=== PATIENT | female | born 1950 | race African-American/Black ===

== ENCOUNTER 2020-05-16 10:29 | Outpatient (CLI) | payer MEDICARE, SELFPAY ==
--- NOTE | ~2020-05-16 | MM_ITS ---
EXAMINATION: MM screening [facility] w brittany HISTORY: Screening TECHNIQUE: Craniocaudal and mediolateral oblique 3-D tomosynthesis images were obtained and synthetic 2-D images were generated. CAD analysis was submitted and interpreted. COMPARISON: Comparison to multiple prior studies sequentially, with oldest reviewed study dated 02/2015. BREAST PARENCHYMAL COMPOSITION: There are scattered areas of fibroglandular density. FINDINGS: There is no evidence of suspicious mass, calcification, or architectural distortion to sugg est malignancy in either breast. There has been no suspicious interval change. IMPRESSION: 1. No mammographic evidence of malignancy. 2. Recommend routine screening mammography in one year. BI-RADS Category 1: Negative Reviewed, dictated and finalized at location A.
== END 2020-05-16 10:30 | disposition home or self-care (01) ==
PROVIDERS: PCP Family Medicine; Visit Provider Family Medicine
DX: Z12.31 Encounter for screening mammogram for malignant neoplasm of breast (principal)
CPT/HCPCS: 77063; 77067

== ENCOUNTER → 2021-05-15 14:50 | Outpatient (CLI) | payer MEDICARE, SELFPAY ==
--- NOTE | ~2021-05-15 | XR_ITS ---
XR knee RT min 4V DATE: 05/15/2021 15:43 INDICATION: Right knee pain TECHNIQUE: Harding, standing AP and PA and lateral views COMPARISON: 05/31/2019 right knee FINDINGS: There is moderate osteopenia. There is moderate narrowing of the medial compartment joint space. There is slight periarticular spur ring of the patella. There is prominent enthesopathy of the patella at the quadriceps and patellar tendon insertion sites. No fracture or dislocation or joint effusion. No radiopaque intra-articular loose body or chondrocalc inosis. No periosteal reaction or bone destruction. 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 IMPRESSION: Moderate osteoarthritis at the medial compartment, mild patellofemo ral osteoarthritis Moderate osteopenia Little interval change since 05/31/2019
== END ==
PROVIDERS: PCP Family Medicine; Visit Provider Family Medicine
DX: M25.561 Pain in right knee (principal); M17.11 Unilateral primary osteoarthritis, right knee; M85.861 Other specified disorders of bone density and structure, right lower leg
CPT/HCPCS: 73564

== ENCOUNTER 2021-05-20 08:17 | Outpatient (CLI) | payer MEDICARE, SELFPAY ==
--- NOTE | ~2021-05-20 | MM_ITS ---
EXAMINATION: MM screening [facility] w brittany HISTORY: Screening TECHNIQUE: Craniocaudal and mediolateral oblique 3-D tomosynthesis images were obtained and synthetic 2-D images were generated. CAD analysis was submitted and interpreted. COMPARISON: Comparison to multiple prior studies sequentially, with oldest reviewed study dated 02/2015. BREAST PARENCHYMAL COMPOSITION: There are scattered areas of fibroglandular density. FINDINGS: No significant change to benign-appearing bilateral breast masses. There is no evidence of suspicious mass, calcification, or architectural distortion to suggest malignancy in either breast. T here has been no suspicious interval change. IMPRESSION: 1. No mammographic evidence of malignancy. 2. Recommend routine screening mammography in one year. BI-RADS Category 2: Benign finding(s). Reviewed, dictated and finalized at location A.
== END 2021-05-20 08:18 | disposition home or self-care (01) ==
PROVIDERS: PCP Family Medicine; Visit Provider Family Medicine
DX: Z12.31 Encounter for screening mammogram for malignant neoplasm of breast (principal)
CPT/HCPCS: 77063; 77067

== ENCOUNTER 2021-06-04 10:10 | Outpatient (CLI) | payer MEDICARE, SELFPAY ==
--- NOTE | 2021-06-04 11:30 | NEURO_ITS ---
Impression: # Complains of right lower extremity discomfort and throbbing sensation. # Normal nerve conduction study # Normal needle/EMG exam with no evidence of neurogenic changes. # Clinical correlation recommended; Higher involvement cannot be ruled out. Nerve Conduction Studies Anti Sensory Summary Table Stim Site NR Peak (ms) P-T Amp (?V) Site1 Site2 Delta-P (ms) Dist (cm) Román (m/s) Left Sup Fibular Anti Sensory (Ant Lat Mall) 14 cm 3.9 12.4 14 cm Ant Lat Mall 3.9 16.0 41 Right Sup Fibular Anti Sensory (Ant Lat Mall) 14 cm 3.4 16.8 14 cm Ant Lat Mall 3.4 16.0 47 Left Sural Anti Sensory (Lat Mall) Calf 3.9 6.7 Calf Lat Mall 3.9 16.0 41 Right Sural Anti Sensory (Lat Mall) Calf 3.6 5.1 Calf Lat Mall 3.6 16.0 44 Motor Summary Table Stim Site NR Onset (ms) O-P Amp (mV) Site1 Site2 Delta-0 (ms) Dist (cm) Román (m/s) Left Peroneal Motor (Vastus Med) Ankle 4.1 1.5 Popit Ankle 7.9 40.0 51 Popit 12.0 1.0 Right Peroneal Motor (Vastus Med) Ankle 4.1 1.0 Popit Ankle 7.2 36.0 50 Popit 11.3 1.0 Left Tibial Motor (Abd Smyth Brev) Ankle 4.5 1.9 Knee Ankle 8.2 42.0 51 Knee 12.7 0.6 Right Tibial Motor (Abd Smyth Brev) Ankle 4.0 0.6 Knee Ankle 8.7 41.0 47 Knee 12.7 0.7 F Wave Studies NR F-Lat (ms) L-R F-Lat (ms) Left Peroneal (Mrkrs) (EDB) 56.16 0.96 Right Peroneal (Mrkrs) (EDB) 55.20 0.96 Left Tibial (Mrkrs) (Abd Hallucis) 55.67 1.52 Right Tibial (Mrkrs) (Abd Hallucis) 54.15 1.52 EMG Side Muscle Nerve Root Ins Act Fibs Amp Dur Recrt Comment Right AntTibialis Dp Br Fibular L4-5 Nml Nml Nml Nml Nml Right Gastroc Tibial S1-2 Nml Nml Nml Nml Nml Right Fibularis Long Sup Br Fibular L5-S1 Nml Nml Nml Nml Nml Right Flex Dig Long Tibial L5-S2 Nml Nml Nml Nml Nml Right Ext Dig Brev Dp Br Fibular L5, S1 Nml Nml Nml Nml Nml Left AntTibialis Dp Br Fibular L4-5 Nml Nml Nml Nml Nml Left Gastroc Tibial S1-2 Nml Nml Nml Nml Nml Left Fibularis Long Sup Br Fibular L5-S1 Nml Nml Nml Nml Nml Left Flex Dig Long Tibial L5-S2 Nml Nml Nml Nml Nml Left Ext Dig Brev Dp Br Fibular L5, S1 Nml Nml Nml Nml Nml Right QuadratusFem QuadFemoris L4-5, S1 Nml Nml Nml Nml Nml Left QuadratusFem QuadFemoris L4-5, S1 Nml Nml Nml Nml Nml MTDD
== END 2021-06-04 10:11 | disposition home or self-care (01) ==
PROVIDERS: PCP Family Medicine; Visit Provider Family Medicine
DX: G62.9 Polyneuropathy, unspecified (principal)
CPT/HCPCS: 95886; 95910

== ENCOUNTER → 2021-12-09 12:20 | Outpatient (CLI) | payer MEDICARE, SELFPAY ==
--- NOTE | ~2021-12-09 | XR_ITS ---
EXAMINATION: XR chest 2V 12/09/2021 12:45 INDICATION: Persistent cough PROCEDURE: 2 view chest COMPARISON: 11/09/2018 FINDINGS: The lungs are clear. The cardiomediastinal silhouette is within normal limits. There are no pleural effusions. There is no pneumothorax suspected. IMPRESSION: 1: NO ACUTE CARDIOPULMONARY DISEASE. Reviewed, dictated and finalized at location A.
== END ==
PROVIDERS: PCP Family Medicine; Visit Provider Family Medicine
DX: R05.3 Chronic cough (principal)
CPT/HCPCS: 71046

== ENCOUNTER 2022-02-04 00:27 | Day surgery (SDC) | payer MEDICARE, SELFPAY ==
[2022-01-27 08:43] VITALS: BMI 28.3
[2022-02-04 09:27] VITALS: BP 132/65; PULSE 77; RESP 16; TEMP 35.8; O2SAT 99
--- NOTE | 2022-02-04 09:32 | WPDGICN ---
Assessment and Plan Assessment and plan (1) Encounter for screening colonoscopy: Code(s): Z12.11 - Encounter for screening for malignant neoplasm of colon Status: Acute Assessment and Plan: Patient presents today for screening colonoscopy. She has a distant history of colon polyps. Two thousand fifteen most recent colonoscopy was unremarkable. Patient returns for neoplasia screening colonoscopy today. GI Consult Note Consult date/time: 02/04/22 09:32 HPI: Eleonora Gandhi is a 71 year old female Presents for screening colonoscopy. Patient's current weight appetite and bowel movements are normal. She denies abdominal pain. She has had no bleeding. Family history noncontributory. Patient has a prior history of colon polyps. Most recent colonoscopy 7 years ago was unremarkable. Patient returns today for neoplasia screening. Review of Systems Review of Systems: All systems reviewed & are unremarkable except as noted in HPI and below PMFSH Past Medical History Medical History Arthritis Hypertension Surgical History Surgical History H/O: hysterectomy Family History Family History Father Family history of arthritis Family history of diabetes mellitus in first degree relative Family history of congestive heart failure Mother Family history of arthritis Social History Social History Smoking status: Never smoker Alcohol intake: current Drinks per week: 2 Alcohol use details: 2 SHOTS OF VODKA A WEEK Substance use: current Substance use type: marijuana Other substance usage details: MARIJUANA GUMMIES Living arrangements: with family Spiritual care concerns: No Meds Home Medications and Allergies Home Medications Medication Instructions Recorded Confirmed Type amlodipine 10 mg tablet 10 mg PO DAILY 10/04/19 02/04/22 History calcium carbonate 600 mg calcium 1,200 mg PO BID tablet 10/04/19 02/04/22 History (1,500 mg) tablet gabapentin 300 mg capsule 300 mg PO BID 10/04/19 02/04/22 History valacyclovir 500 mg tablet 500 mg PO DAILY 10/04/19 02/04/22 History baclofen 10 mg tablet 10 mg PO DAILY PRN tablet 10/11/20 02/04/22 History multivitamin,xu-hydg-oipslubh 1 tablet PO DAILY 10/11/20 02/04/22 History calcitriol 0.25 mcg capsule See Rx Instructions .ROUTE 10/03/21 02/04/22 History .COMPLEX cap furosemide 20 mg tablet 10 mg PO QAM PRN 10/03/21 02/04/22 History Allergies Allergy/AdvReac Type Severity Reaction Status Date / Time No Known Allergies Allergy Verified 02/04/22 09:26 Vital Signs Vital Signs - 24 hr 02/04/22 09:27 Temperature 96.5 F L Pulse Rate 77 Respiratory Rate 16 Blood Pressure 132/65 Pulse Oximetry 99 Exam Narrative: Physical exam reveals patient to be alert. Vital signs stable. HEENT exam is unremarkable. Patient is anicteric. Lungs are clear to auscultation and percussion. Heart is without murmur or extra sounds. Abdominal exam bowel sounds are present soft nontender with no organomegaly. Digital external rectal exam is normal.
[2022-02-04] MEDS: LACTATED RINGERS 1,000 ML 150 ML IV CONT (09:37)
--- NOTE | 2022-02-04 09:45 | WPDANESEPPF ---
Anes - Initial Pre Proc Eval Procedure: Operation Date: 02/04/22 10:45 Proposed Procedures p Screening Colonoscopy - Edison Dominguez MD Date/Time: 02/04/22 09:45 Surgeon: Edison Dominguez MD Pre Op Diagnosis: hx of colon polyps Patient Data Age: 71 Gender: F Height: 1.63 m Weight: 71 kg Last Vital Signs Temp 96.5 F L 02/04/22 09:27 Pulse 77 02/04/22 09:27 Resp 16 02/04/22 09:27 BP 132/65 02/04/22 09:27 Pulse Ox 99 02/04/22 09:27 Allergies Allergy/AdvReac Type Severity Reaction Status Date / Time No Known Allergies Allergy Verified 02/04/22 09:26 Home Medications Medication Instructions Recorded Confirmed Type amlodipine 10 mg tablet 10 mg PO DAILY 10/04/19 02/04/22 History calcium carbonate 600 mg calcium 1,200 mg PO BID tablet 10/04/19 02/04/22 History (1,500 mg) tablet gabapentin 300 mg capsule 300 mg PO BID 10/04/19 02/04/22 History valacyclovir 500 mg tablet 500 mg PO DAILY 10/04/19 02/04/22 History baclofen 10 mg tablet 10 mg PO DAILY PRN tablet 10/11/20 02/04/22 History multivitamin,wp-swfn-eoqlqper 1 tablet PO DAILY 10/11/20 02/04/22 History calcitriol 0.25 mcg capsule See Rx Instructions .ROUTE 10/03/21 02/04/22 History .COMPLEX cap furosemide 20 mg tablet 10 mg PO QAM PRN 10/03/21 02/04/22 History Patient hx anesthesia problems: none Family hx anesthesia problems: none Results Review: All pre-operative results and documents have been reviewed as part of the pre-operative evaluation. [facility] Past Medical History Medical History Arthritis Hypertension Surgical History Surgical History H/O: hysterectomy Family History Family History Father Family history of arthritis Family history of diabetes mellitus in first degree relative Family history of congestive heart failure Mother Family history of arthritis Social History Social History Smoking status: Never smoker Alcohol intake: current Drinks per week: 2 Alcohol use details: 2 SHOTS OF VODKA A WEEK Substance use: current Substance use type: marijuana Other substance usage details: MARIJUANA GUMMIES Living arrangements: with family Spiritual care concerns: No Anes - Eval Final PreProcedure Day of Procedure 02/04/22 09:45 Patient weight: normal Heart: regular rate and rhythm Lungs: clear to auscultation Airway: Mallampati scale class II Neurological: alert and oriented Last oral intake: >/= 8 hours ASA classification: II Emergent: no Anesthetic plan: proceed Anesthesia type and monitoring: general GIVS and standard monitoring Results Review: All pre-operative results and documents have been reviewed as part of the pre-operative evaluation. Informed Consent: The patient's anesthetic plan and its attendant risks and benefits were discussed with the patient/family/POA. Questions were solicited and answers provided to the satisfaction of the patient/family/POA.
[2022-02-04 10:08] VITALS: BP 93/45; PULSE 59; RESP 18; O2SAT 100
[2022-02-04 10:18] VITALS: BP 107/57; PULSE 64; RESP 22; O2SAT 100
[2022-02-04 10:28] VITALS: BP 121/68; PULSE 61; RESP 22; O2SAT 100
== END 2022-02-04 10:39 | disposition home or self-care (01) ==
PROVIDERS: PCP Family Medicine; Visit Provider Internal Medicine Gastroenterology
PROC: 0DJD8ZZ Inspection of Lower Intestinal Tract, Via Natural or Artificial Opening Endoscopic (ICD-10-PCS; CPT 45378; principal; 2022-02-04 10:45)
DX: Z12.11 Encounter for screening for malignant neoplasm of colon (principal); K63.5 Polyp of colon; K57.30 Diverticulosis of large intestine without perforation or abscess without bleeding; I10 Essential (primary) hypertension; F12.90 Cannabis use, unspecified, uncomplicated
CPT/HCPCS: 45385; 88305; J2704; J7120

== ENCOUNTER 2022-02-07 13:04 | Outpatient (CLI) | payer MEDICARE, SELFPAY | END 2022-02-07 13:05 | disposition home or self-care (01) | PROVIDERS: PCP Family Medicine; Visit Provider Nurse Practitioner | DX: R05.3 Chronic cough (principal) | CPT/HCPCS: 87015; 87116; 87206 ==

== ENCOUNTER 2022-02-24 10:15 | Outpatient (CLI) | payer MEDICARE, SELFPAY ==
--- NOTE | 2022-02-24 13:11 | WPDPFTINT ---
PFT Procedure Performed PFT Procedure Performed Spirometry with Pre/Post Bronchodilator Plethysmography (Lung Vol) Diffusing Cap (DLCO) Flow Vol Loop PFT Interpretation Lung volumes were measured with the body plethysmography method. Lung volumes are unremarkable. Spirometry showed normal expiratory flow rates and a normal FEV1 to FVC ratio of 70%. Following administration of a bronchodilator there was no significant change in the expiratory flow rates. Lung diffusion capacity is mildly reduced at 66% predicted. The flow volume loop is unremarkable. Impression: Spirometry and lung volumes within the normal range. Mild reduction in lung diffusion capacity.
== END 2022-02-24 10:16 | disposition home or self-care (01) ==
LOC: ANHPFT 10:18
PROVIDERS: PCP Family Medicine; Visit Provider Nurse Practitioner
DX: R05.3 Chronic cough (principal)
CPT/HCPCS: 94060; 94726; 94729

== ENCOUNTER 2022-08-26 09:49 | Outpatient (CLI) | payer MEDICARE, SELFPAY ==
--- NOTE | ~2022-08-26 | MM_ITS ---
EXAMINATION: MM screening [facility] BI w brittany HISTORY: Screening mammogram TECHNIQUE: Craniocaudal and mediolateral oblique 3-D tomosynthesis images were obtained and synthetic 2-D images were generated. CAD analysis was submitted and interpreted. COMPARISON: 05/20/2021 BREAST PARENCHYMAL COMPOSITION: The breasts are almost entirely fatty. FINDINGS: Again noted are stable intramammary lymph nodes in the outer breasts. No suspicious mass, c alcification, or architectural distortion are identified in either breast to suggest malignancy. Ther e has been no suspicious interval change. IMPRESSION: 1. No mammographic evidence of malignancy. 2. Recommend routine screening mammography in one year. BI-RADS Category 2: Benign finding(s). Reviewed, dictated and finalized at location A. 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
== END 2022-08-26 09:50 | disposition home or self-care (01) ==
LOC: ANHIMG 09:50
PROVIDERS: PCP Family Medicine; Visit Provider Family Medicine
DX: Z12.31 Encounter for screening mammogram for malignant neoplasm of breast (principal)
CPT/HCPCS: 77063; 77067

== ENCOUNTER → 2022-11-14 12:51 | Outpatient (CLI) | payer MEDICARE, SELFPAY ==
--- NOTE | ~2022-11-14 | US_ITS ---
Renal-Bladder ultrasound Clinical History: Chronic kidney disease Technique: Real-time sonographic imaging of the kidneys and urinary bladder was performed. Findings: The right kidney measures 11.0 cm in length and the left kidney measures 10.8 cm. There is no hydronephrosis or renal calculus identified. Renal cortical echogenicity is within normal limits. Left lower pole renal cyst present. Questionable additional cysts versus hypoechoic mass at the left midpole measuring 3.4 cm in diameter The urinary bladder is moderately distended at the time of this exam. No intraluminal echoes are iden tified. No abnormal wall thickening is seen. Impression: No hydronephrosis. Left lower pole simple cyst. Additional possible 3.4 cm cyst versus mass at the left midpole. Given inconclusive ultrasound appear ance, recommend pre and postcontrast CT or MR to further evaluate. Reviewed, dictated and finalized at [facility]. 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 Left lower pole simple cyst. Additional possible 3.4 cm cyst versus mass at the left midpole. Given inconclu sive ultrasound appearance, recommend pre and postcontrast CT or MR to further evaluate.
== END ==
PROVIDERS: PCP Family Medicine; Visit Provider Internal Medicine Nephrology
DX: N18.31 Chronic kidney disease, stage 3a (principal); N28.9 Disorder of kidney and ureter, unspecified
CPT/HCPCS: 76775

== ENCOUNTER 2024-01-18 14:53 | Outpatient (CLI) | payer MEDICARE, SELFPAY ==
--- NOTE | ~2024-01-18 | MM_ITS ---
EXAMINATION: MM screening [facility] BI w brittany HISTORY: Screening mammogram TECHNIQUE: Craniocaudal and mediolateral oblique 3-D tomosynthesis images were obtained and synthetic 2-D images were generated. CAD analysis was submitted and interpreted. COMPARISON: 08/26/2022, 05/20/2021 bilateral screening mammogram examinations BREAST PARENCHYMAL COMPOSITION: There are scattered areas of fibroglandular density. FINDINGS: Occasional stable bilateral low density circumscribed opacities are noted There is no evide nce of suspicious mass, calcification, or architectural distortion to suggest malignancy in either br east. There has been no suspicious interval change. IMPRESSION: 1. No mammographic evidence of malignancy. 2. Recommend routine screening mammography in one year. BI-RADS Category 2: Benign finding(s). Reviewed, dictated and finalized at location A.
== END 2024-01-18 14:54 | disposition home or self-care (01) ==
PROVIDERS: PCP Family Medicine; Visit Provider Family Medicine
DX: Z12.31 Encounter for screening mammogram for malignant neoplasm of breast (principal)
CPT/HCPCS: 77063; 77067

== ENCOUNTER 2024-05-31 14:26 | Outpatient (CLI) | payer MEDICARE, SELFPAY ==
--- NOTE | ~2024-05-31 | MR_ITS ---
EXAMINATION: MR knee RT wo con DATE: 05/31/2024 15:23 INDICATION: Right knee pain. TECHNIQUE: Magnetic resonance imaging (MRI) of the right knee was performed without intravenous contr ast. Sequences included axial PD-weighted FS FSE, coronal PD-weighted FSE and PD-weighted FS FSE, sag ittal PD-weighted FSE, and sagittal T2-weighted FS FSE. COMPARISON: Right knee radiographs 05/13/2024 FINDINGS: Medial compartment: There is a vertical tear of posterior horn of medial meniscus. There is partial-thickness cartilage l oss of femoral condyle, deep at the central and posterior articular surface. There is shallow partial -thickness cartilage loss of tibial condyle. Osteophytes are noted. Lateral compartment: There is a complex tear involving anterior horn, body, and posterior horn of lateral meniscus. There is partial-thickness cartilage loss of tibial condyle, deep at the central articular surface. There i s partial-thickness cartilage loss of femoral condyle, deep at the medial articular surface. Osteophy rivka are noted. Patellofemoral compartment: There is deep partial-thickness cartilage loss of patellar medial and lateral facets. There is full-t hickness cartilage loss of patellar medial ridge and mild subchondral edema-like marrow signal intens ity. There is full-thickness cartilage loss of lateral trochlea with mild subchondral edema-like zakia ow signal intensity. There is deep partial-thickness cartilage loss of central trochlea. Osteophytes are noted. Ligaments and tendons: The anterior and posterior cruciate ligaments are normal. Medial collateral ligament is normal. There are changes of prior sprain of fibular collateral ligament characterized by thickening and increased signal intensity proximally. There is mild patellar tendinopathy. Fluid: There is a small knee joint effusion. There is a small Olivarez's cyst. IMPRESSION: 1. Severe chondrosis of patellofemoral compartment and moderate chondrosis of medial and lateral comp artments. 2. Tears of medial and lateral menisci. 3. Small knee joint effusion. Reviewed, dictated and finalized at location A. IMPRESSION: 1. Severe chondrosis of patellofemoral compartment and moderate chondrosis of m edial and lateral compartments. 2. Tears of medial and lateral menisci. 3. Small knee joint effusion.
== END 2024-05-31 14:27 | disposition home or self-care (01) ==
LOC: MICIMG 14:27
PROVIDERS: PCP Nurse Practitioner Family; Visit Provider Nurse Practitioner Family
DX: M94.261 Chondromalacia, right knee (principal); S83.281A Other tear of lateral meniscus, current injury, right knee, initial encounter; S83.241A Other tear of medial meniscus, current injury, right knee, initial encounter; M25.40 Effusion, unspecified joint; X58.XXXA Exposure to other specified factors, initial encounter
CPT/HCPCS: 73721

== ENCOUNTER 2024-05-31 14:29 | Outpatient (CLI) | payer MEDICARE, SELFPAY ==
--- NOTE | ~2024-05-31 | XR_ITS ---
XR chest 2V Ordering provider: La Dover, SAGGER FILLER History: 73 years Female with . CHRONIC COUGH . Comparison: December 09, 2021 FINDINGS: MEDIASTINUM: The cardiac silhouette is not enlarged. LUNGS: No infiltrates, effusions or pneumothorax. OTHER: No free air under the diaphragm. IMPRESSION: No acute cardiopulmonary pathology Reviewed, dictated and finalized at location A.
== END 2024-05-31 14:30 | disposition home or self-care (01) ==
LOC: MICIMG 14:30
DX: R05.3 Chronic cough (principal)
CPT/HCPCS: 71046

== ENCOUNTER 2024-06-23 14:37 | Outpatient (CLI) | payer MEDICARE, SELFPAY ==
--- NOTE | ~2024-06-23 | XR_ITS ---
2 VIEWS THORACOLUMBAR SPINE Ordering provider: La Dover, PHOTOENGRAVING MACHINE OPERATOR/TENDER History: . Cervicalgia MID/LOWER BACK PAIN NO SURGERIES . Comparison: None. July 07, 2018 FINDINGS: VERTEBRAL BODIES: Slight loss of volume of T9 and T10. Normal height and alignment. No visible fractu re or subluxation. DISK SPACES: Narrowing of the disc space in the lower thoracic area. Narrowing of the disc L5-S1. SOFT TISSUES: Normal. IMPRESSION: No acute osseous abnormality of the thoracolumbar spine. Loss of volume in T9 and T10 which is most l ikely chronic. Reviewed, dictated and finalized at location A. IMPRESSION: No acute osseous abnormality of the thoracolumbar spine. Loss of volume in T9 a nd T10 which is most likely chronic.
--- NOTE | ~2024-06-23 | XR_ITS ---
[id number] Ordering provider: La Dover, ARMATURE BANDER History: . Cervicalgia RT SIDED CERVICAL PAIN . Comparison: None. FINDINGS: VERTEBRAL BODIES: Normal height and alignment. No visible fracture or subluxation. The dens is intact . DISK SPACES: Narrowing of the disc spaces C3-C4, C4-C5, C5-C6 and C6-C7. Multilevel uncovertebral roland nt osteoarthritic changes. PARASPINOUS SOFT TISSUES: No prevertebral soft tissue swelling. IMPRESSION: No acute osseous abnormality cervical spine. Multilevel degenerative disc disease. Reviewed, dictated and finalized at location A.
== END 2024-06-23 14:38 | disposition home or self-care (01) ==
LOC: ANHIMG 14:40
DX: M54.2 Cervicalgia (principal); M54.50 Low back pain, unspecified
CPT/HCPCS: 72040; 72080

== ENCOUNTER 2024-12-12 09:45 | Outpatient (CLI) | payer MEDICARE, SELFPAY ==
--- NOTE | ~2024-12-12 | CT_ITS ---
EXAMINATION: CT cervical spine wo con DATE: 12/12/2024 10:21 INDICATION: Cervical disc degeneration. TECHNIQUE: Computed tomography (CT) of the cervical spine was performed without intravenous contrast. Automated exposure control and iterative reconstruction technique were employed. The dose-length pro duct was 180.91 mGy-cm. COMPARISON: Cervical spine radiographs 06/23/2024 FINDINGS: There is kyphosis of cervical spine. There is 9 degrees dextrocurvature of cervical spine. Vertebral body heights are normal. There is severely decreased disc height from C3-C4 through C5-C6 a nd mildly decreased disc height at C6-C7. The following disc levels are specifically discussed: C2-C3: There is severe right and mild left uncovertebral joint osteoarthritis. There is moderate bila teral facet joint osteoarthritis. There is no neural foraminal stenosis. There is no central canal st enosis. C3-C4: There is severe right and mild left uncovertebral joint osteoarthritis. There is severe bilate ral facet joint osteoarthritis. There is mild bilateral neural foraminal stenosis. There is mild cent ral canal stenosis. C4-C5: There is moderate right and severe left uncovertebral joint osteoarthritis. There is moderate right and severe left facet joint osteoarthritis. There is mild bilateral neural foraminal stenosis. There is mild central canal stenosis. C5-C6: There is severe right and mild left uncovertebral joint osteoarthritis. There is mild right an d severe left facet joint osteoarthritis. There is mild right neural foraminal stenosis. There is mil d central canal stenosis. C6-C7: There is no uncovertebral joint osteoarthritis. There is mild bilateral facet joint osteoarthr itis. There is no neural foraminal stenosis. There is mild central canal stenosis. C7-T1: There is mild bilateral uncovertebral joint osteoarthritis. There is mild bilateral facet join t osteoarthritis. There is no neural foraminal stenosis. There is no central canal stenosis. IMPRESSION: 1. Severe cervical spondylosis. Reviewed, dictated and finalized at location A.
--- OUTSIDE RECORDS SUMMARY | 2024-12-12 11:04 | XMS_ITS | Clinical Summary ---
Author Organization [facility] Address [address] [place] [id number] Care Team Providers Care Web Press Operator Apprentice Name Role Phone Yusra Mathews MD Primary Care Provider [phone] Social History Tobacco Use Types Packs/Day Years Used Date Smoking Tobacco: Never Assessed Comments Unknown Sex and Gender Information Value Date Recorded Sex Assigned at Not on file Legal Sex Female 2:06 PM CDT Gender Identity Not on file Sexual Orientation Not on file Plan of Treatment Health Maintenance Due Date Last Done Comments Colorectal Cancer Screening Colonoscopy (10 Years) 1950 Hepatitis C 1968 DTaP, Tdap and Td Vaccines ( 1 - Tdap) 1969 Mammogram Screening 1990 Zoster Vaccines (2 of 3) 11/16/2009 09/21/2009 Annual Medicare Wellness Visit 2015 Dexa Scan (General) 2015 COVID-19 Vaccine (2023-2 5 season) 2024 Influenza Adult (#1) 2024 07/19/2018, 07/13/2017, 08/08/2015 RSV Immunization or 60+ Years (1 - 1-dose 75+ series) 2025 Pneumococcal Vaccine: 65+ Years Completed 08/18/2016, 10/12/2015 Meningococcal B Vaccine Aged Out No l onger eligible based on patient's age to complete this topic Meningococcal Vaccine Aged Out No lucy mary eligible based on patient's age to complete this topic RSV Immunizations Under 20 Months Aged Out No longer eligible b ased on patient's age to complete this topic Insurance [facility] Care Teams Web Press Operator Apprentice Relationship Specialty Start Date End Date Yusra Mathews MD [address] [place] [id number] PCP - General FAMILY PRACTICE 06/30/18
--- OUTSIDE RECORDS SUMMARY | 2024-12-12 11:04 | XMS_ITS | CONTINUITY OF CARE DOCUMENT ---
Author Name emperatriz awan Address Unknown Organization [facility] Address [address] [place] [address] Phone [phone] Care Team Providers Care Investment Manager Name Role Phone Marciano Perry MD Unavailable FLORESITA COHEN MD Unavailable [phone] FLORESITA COHEN MD Unavailable [phone] PROBLEMS Condition Status Date Provider Notes Family History of Hypertension: active ? Marciano Perry MD Family History of Hypertension: completed - Marciano Perry MD Varicose veins active Marciano Perry MD Sleep apnea, mild on home sleep 10/09 active Marciano Perry MD suggest split n ight sleep study 11/01/18 ENCOUNTERS Date Type Provider Location Encounter Diag nosis - In-person encounter Office Visit Marciano Perry MD [facility] - In-person encounter Office Visit Marciano Perry MD [facility] Family History of Hypertension:Sleep apnea, mild on home sleep 10/09 - In-person encounter Office Visit Marciano Perry MD [place] [facility] Family History of Hypertension:Varico se veinsSleep apnea, mild on home sleep 10/09 VITAL SIGNS Date Observation Value Provider Body Mass Index (Ratio) 29.69 kg/m2 Pauile Perry MD weight E&M 173 [lb_av] Jannie murphy blood pressure, cuff size regular Cy lou Martin blood pressure, diastolic 70 mm[Hg] Cy lou Martin blood pressure, systolic 128 mm[Hg] Sarika Martin oxygen saturation, oximetry 98 % Jannie Martin respiratory rate E&M 16 /min Jannie Martin pulse rate 69 /min Jannie murphy height E&M 64 [in_i] Jannie Vinesjohanna l Body Mass Index (Ratio) 30.04 kg/m2 Paulie Perry MD blood pressure, diastolic 70 mm[Hg] Da lindsay Kenyetta blood pressure, systolic 132 mm[Hg] Dac ia Kenyetta oxygen saturation, oximetry 97 % Raegan Kenyetta respiratory rate E&M 16 /min Raegan V oss pulse rate 79 /min Raegan Kenyetta weight E&M 175 [lb_av] Raegan Kenyetta height E&M 64 [in_i] Raegan Kenyetta Body Mass Index (Ratio) 29.86 kg/m2 Paulie Perry MD blood pressure, diastolic 70 mm[Hg] Jay melisaty Chetan blood pressure, systolic 126 mm[Hg] Scott urbina pulse rate 76 /min Lynette oxygen saturation, oximetry 97 % Lynette blood pressure, resting No Ayden ty respiratory rate E&M 17 /min Lynette height E&M 64 [in_i] Lynette weight E&M 174 [lb_av] Lynette [place] ALLERGIES No Known Drug Allergies HISTORY OF MEDICATION USE Medication Status Instructions Dates Provider Indications Com ments TYLENOL CAPSULE completed take one tablet by mouth as needed - Janniecharlotte Martin FUROSEMIDE 20 MG ORAL TABLET completed take one tablet by mouth once daily as needed - Jannie Martin SLOW MAGNESIUM/CALCIU M TABLET DELAYED RELEASE active take one tablet by mouthonce daily Lynette Benton DAILY MULTIVITAMIN ORAL CAPSULE active take one tablet by mouth once daily Lynette Benton VALACYCLOVIR HCL 500 MG ORAL TABLET active take one tablet by mouth once daily Lynette Benton AMLODIPINE BESYLATE 10 MG ORAL TABLET active take one tablet by mouth once daily Lynette Benton CALCITRIOL 0.5 MCG ORAL CAPSULE active take one tablet by mouthonce daily Lynette eBnton CALCIUM + D active take 2 tablet by mouth twice daily Lynette Benton IBUPROFEN 600 MG ORAL TABLET completed TK 1 T PO BID PRN - Jannie Mario #60, 30 days supply, Prescribed by ONEIL MARTINEZ, Filled 06/11/2018 GABAPENTIN 300 MG ORAL CAPSULE active TK 1 C PO BID Lynette Benton #60, 30 days supply, Prescribed by FLORESITA COHEN, Filled 08/17/2018 SOCIAL HISTORY Date Observation Value Provider social history reviewed E&M revi ewed - no changes required Marciano Perry MD social history E&M S moking History: Lamin powell has never smoked. Marciano Perry MD smoking status Never smoker Jannie cardoso social history E&M S moking History: Lamin powell has never smoked. Marciano Perry MD social history reviewed E&M revi ewed - no changes required Marciano Perry MD smoking status Never smoker Raegan Kumari social history E&M S moking History: Lamin powell has never smoked. Marciano Perry MD social history reviewed E&M revi ewed - no changes required Marciano Perry MD number of grandchildren Marciano Perry MD U lee ann Perry MD smoking status Never smoker Lynette Benton FAMILY HISTORY Family Member Condition Father Family History of Hy pertension: Father Family History of Di abetes: Mother Family History of Hy pertension: INSURANCE PROVIDERS Payer name Policy type / Coverage type [place] [employer] party ID AARP MEDICARE ADVANTAGE ([facility] COMPLETE PPO) Other [id number] ADVANCE DIRECTIVES Name Date DISCUSSED - NO DECISION MADE TREATMENT PLAN Date Name Performer Cardiology follow up :Mild on home sleep study done 09/2018. Split night sleep study 11/23/18 was negative for ISHA. Marciano Perry MD Cardiology follow up :Venous doppler revealed no evidence of DVT or venous insufficiency b/l. Marciano Perry MD Cardiology follow up :Mild on home sleep study done 10/09, recommend split night sleep study for further evaluation Marciano Perry MD Cardiology follow up :Venous doppler revealed no evidence of DVT or venous insufficiency b/l. Marciano Perry MD Cardiology:Will need repeat doppler. She does not have any of hte usual criteria to treat with EVLT. I will however give her thigh-high stockings. Marciano Perry MD Cardiology:Will need repeat dopp ler. Marciano Perry MD Cardiology:will chec k home sleep study as pt's and daughter reports episodes in night of apnea-like breathing issues, such as stopping breathing. Although she does not have a lot of sx, will check home sleep study to rule out question of apnea. Marciano Perry MD Date Name Sleep Study - split night Sleep Study Home HISTORY OF PROCEDURES Procedure Date Procedure Name Provider Procedure Notes S tatus EKG Marciano Perry MD completed
--- OUTSIDE RECORDS SUMMARY | 2024-12-12 11:04 | XMS_ITS | Patient Health Record ---
Author Organization [facility] Address [address] [place], [place] [id number] Care Team Providers Care Noc Analyst Name Role Phone Santiagomary Yusra Unavailable Unavailable Reason For Referral No Information Medications Medication SIG (Take, Route, Frequency, Duration) Notes Start Date End Date Status Medrol 4 MG as directed Orally 09/11/2023 Active Immunizations Vaccine Route Administration Date Status Comme nts Influenza, high dose seasonal Unknown 07/02/2023 Admini stered Plan Of Treatment No Information Insurance Providers Payer Name Payer Address Payer Phone Subscriber Number Group Number Insured Name Patient Relationship to Insured Coverage Start Date Coverage End Date [facility] [address] [address] [place] [address] [id number] NORA BARTH Self - patient is the insured Medical (General) History Medical History History ICD Code neuropathy Arthritis thyroid cancer
--- OUTSIDE RECORDS SUMMARY | 2024-12-12 11:04 | XMS_ITS | Data Portability ---
Author Organization [place] [facility] [employer], Main Office Address [address] [place] [id number] Care Team Providers Care Instant Powder Supervisor Name Role Phone FLORESITA MATHEWS Primary Care Provider [phone] Assessment No assessment recorded. Plan of Treatment Reminders Order Date Submit Date Provider Last Modified By Organization Details Last Modified Time Details Appointments None recorded. Lab microalbum in, urine 2023 024 [facility] ([facility]), [address] [place], [address], 4 23:00:01 CBC w/ auto diff 2022 024 ALEXANDER Not available 4 06:21:32 glycohemog lobin, total, blood 2022 024 77 Not available 4 09:12:12 BMP, serum or plasma 2022 024 ALEXANDER Not available 4 06:21:34 lipid panel, serum 2022 024 ALEXANDER Not available 4 06:21:35 vitamin D, 25-hydroxy , total, serum 2022 023 [email or web address] [id number] Not available 4 08:46:47 vitamin B12, serum 2022 024 ALEXANDER Not available 4 06:21:38 folate, serum 2022 024 ALEXANDER Not available 4 06:21:36 Referral neurologis t referral - Please call patient to schedule an appointmen t. Thank you. 2024 025 [facility] , [address], [place], [address], 5 11:10:47 Procedures None recorded. Surgeries None recorded. Imaging CT, cervical spine, w/ contrast - Please call patient to schedule. [address], [address], [place], [address], 5 16:25:14 XR, chest, 2 view 2023 024 [facility], [address], [place], [address], 4 11:42:24 MAMMO, screening, digital, bilateral - *Please call pt to schedule* [address] [facility], [address], [address], [place], [address], 4 09:11:47 DEXA - *Please call pt to schedule* [address] (Imaging), [address], [place], [address], 4 09:11:47 Medication Orders ofloxacin 0.3 % ear drops 2023 024 [facility] #[id number], [address], [place], [place], [id number], 4 10:59:04 hydroxyzin e HCl 25 mg tablet 2023 024 [facility] #[id number], [address], [place], [place], [id number], 4 10:58:56 albuterol sulfate HFA 90 mcg/actuat ion aerosol inhaler 2023 024 [id number], [address], [place], [place], [id number], 10:57:55 Patient TargetsNo targets recorded. Patient Instructions Encounter Date Encounter Id Patient Instructions Last Modified By Organization Details Last Modified Time 09/07/2023 [id number] multi-dimensiona l health assessment questionnaire* ALEXANDER Not available 09/07/2023 14:48:01 Personalized Hea lt Plan and Screening Recommendations Advance Directives - Do you have one? Advance Directives - Do we have your advance directive on file in your health record? Primary Prevention/Interven tion (prevents or decreases the chance of common diseases from occurring) Smoking Risk: Alcohol Misuse Screening: Weight: Physical activity: Nutrition: Fall Risk (screened today): Vaccines Pneumococcal: Ordered Recommended today Recommended today, but you have declined No further needed Influenza: Chronic Disease Risks Stroke: I have no recommendations Act josé luis diagnosis, Continue current treatment plan Heart Attack: I have no recommendations Act josé luis diagnosis, Continue current treatment plan Clogging of the Arteries: I have no recommendations Act josé luis diagnosis, Continue current treatment plan Diabetes: Active diagnosis, Continue current treatment plan Secondary Prevention/Interven tion (detects treatable diseases before they may cause symptoms, disability, or ) Breast Cancer Screening with mammogram: Your next mammogram: Ordered Cervical/Uterine/Ov naldo Cancer Screening: No screening necessary Osteoporosis Screening: Your next DEXA in: Ordered Date Screening Last Performed: Colon Cancer Screening: Colonoscopy Date Screening Last Performed: Eye Disease Screening: Dementia Risk: Depression Screening: Active diagnosis, Continue current treatment plan [email or web address] Not available 09/17/2023 17:59:23 Reason for Referral Neurologist Referral for Latoya ropathy Please call patient to schedule an appointment. Thank you. Referring Physician: La Dover, Family Medicine, Encounter Date: 10/20/2024 Results Created Date Observation Date Name Description Value Unit Range Abnormal Flag Note LastModifiedBy Organization Detail LastModifiedTime 10/09/1910/09/2022 AMBIG ABBRE V HFP7 DEFAU LT ambig abbrev hfp7 default commen t A hand- writt en panel /prof arredondo was recei senait from your offic e. In accor dance with the [facility] Fareed samuels Test Code Polic y dated March 2003, we have compl eted your order by using the close st curre ntly or forme rly recog nized AMA panel . We have assallen gomezd Hepat ic Funct ion Panel (7), Test Code #32[address]. If this is not the testi ng you wishe d to recei ve on this speci men, pleas e conta ct the [facility] Clien t Inqui ry/Te chnic al Servi tiarra Depar tment to kingsley fy the test order . We appre ciate your busin ess. Not Available [facility] ([facility]) [address] [facility], [place], [address], 10/10/2022 08:19:56 10/09/19 23 10/10/2022 VITAM IN B12 vitamin B12 557 pg/mL 232-12 45 Not Available [facility] ([facility]) [address] [place], [address], 10/10/2022 08:19:55 10/09/19 23 10/10/2022 VITAM IN D, 25-HY DROXY vitamin D, 25-hydroxy 45.3 NG/mL 30.0-1 00.0 Vitam in D defic iency has been defin ed by the Insti tute of Medic ine and an Endoc rine Socie ty pract ice guide line as a level of serum 25-OH vitam in D less than 20 ng/mL (1,2) . The Endoc rine Socie ty went on to furth er defin e vitam in D insuf ficie ncy as a level betwe en 21 and 29 ng/mL (2). 1. IOM (Inst itute of Medic ine). 2010. Dieta ry refer ence reg es for calci um and D. Jordyn benitez [place]: The Natio nal [facility] Press . 2. Parker COLE, Dillan philippe [place], Shanae off-F vidya i BARKER, et al. Evalu ation , treat ment, and preve ntion of vitam in D defic iency : an Endoc rine Socie ty clini dick pract ice guide line. JCEM. 2010; 96(7) :1911 -30. Not Available [facility] ([facility]) [address] [facility] [place], [address], 10/10/2022 08:19:54 10/09/19 23 10/10/2022 HEPAT IC FUNCT ION PANEL (7) protein, total 7.6 g/dL 6.0-8. 5 Not Available [facility] ([facility]) [address] [facility] [place], [address], 10/10/2022 08:19:53 10/09/19 23 10/10/2022 HEPAT IC FUNCT ION PANEL (7) albumin 4.3 g/dL 3.7-4. 7 Not Available [facility] ([facility]) [address] [facility] [place], [address], 10/10/2022 08:19:53 10/09/19 23 10/10/2022 HEPAT IC FUNCT ION PANEL (7) bilirubin, total 0.4 mg/dL 0.0-1. 2 Not Available [facility] ([facility]) [address] [facility] [place], [address], 10/10/2022 08:19:53 10/09/19 23 10/10/2022 HEPAT IC FUNCT ION PANEL (7) bilirubin, direct 0.13 mg/dL 0.00-0 .40 Not Available [facility] ([facility]) [address] [facility] [place], [address], 10/10/2022 08:19:53 10/09/19 23 10/10/2022 HEPAT IC FUNCT ION PANEL (7) alkaline phosphatase 64 IU/L 44-121 Not Available [facility]) [address] [place], [address], 10/10/2022 08:19:53 10/09/19 23 10/10/2022 HEPAT IC FUNCT ION PANEL (7) AST (SGOT) 16 IU/L 0-40 Not Available [facility] ([facility]) [address] [facility] [place], [address], 10/10/2022 08:19:53 10/09/19 23 10/10/2022 HEPAT IC FUNCT ION PANEL (7) ALT (SGPT) 10 IU/L 0-32 Not Available [facility] ([facility]) [address] [place], [address], 10/10/2022 08:19:53 10/09/19 23 10/10/2022 LIPID PANEL cholesterol, total 206 mg/dL 100-19 9 above high normal Not Available [facility] ([facility]) [address] [place], [address], 10/10/2022 08:19:53 10/09/19 23 10/10/2022 LIPID PANEL triglyceride s 90 mg/dL 0-149 Not Available [facility] ([facility]) [address] [place], [address], 10/10/2022 08:19:53 10/09/19 23 10/10/2022 LIPID PANEL HDL cholesterol 68 mg/dL >39 Not Available [facility] ([facility]) [address] [place], [address], 10/10/2022 08:19:53 10/09/19 23 10/10/2022 LIPID PANEL VLDL cholesterol dick 16 mg/dL 5-40 Not Available [facility] ([facility]) [address] [place], [address], 10/10/2022 08:19:53 10/09/19 23 10/10/2022 LIPID PANEL LDL chol calc ([facility]) 122 mg/dL 0-99 above high normal Not Available [facility] ([facility]) [address] [facility] [place], [address], 10/10/2022 08:19:53 10/09/19 23 10/10/2022 LIPID PANEL comment: rn training Not Available [facility] ([facility]) [address] [facility] [place], [address], 10/10/2022 08:19:53 10/09/19 23 10/10/2022 BASIC METAB OLIC PANEL (8) glucose 81 mg/dL 70-99 Not Available [facility] ([facility]) [address] [facility] [place], [address], 10/10/2022 08:19:53 10/09/19 23 10/10/2022 BASIC METAB OLIC PANEL (8) BUN 13 mg/dL 8-27 Not Available [facility] ([facility]) [address] [facility] [place], [address], 10/10/2022 08:19:53 10/09/19 23 10/10/2022 BASIC METAB OLIC PANEL (8) creatinine 1.03 mg/dL 0.57-1 .00 above high normal Not Available [facility] ([facility]) [address] [facility] [place], [address], 10/10/2022 08:19:53 10/09/19 23 10/10/2022 BASIC METAB OLIC PANEL (8) eGFR 58 mL/mi n/1.7 3 >59 below low normal Not Available [facility] ([facility]) [address] [facility] [place], [address], 10/10/2022 08:19:53 10/09/19 23 10/10/2022 BASIC METAB OLIC PANEL (8) BUN/creatini ne ratio 13 12-28 Not Available [facility] ([facility]) [address] [place], [address], 10/10/2022 08:19:53 10/09/19 23 10/10/2022 BASIC METAB OLIC PANEL (8) sodium 144 mmol/ L 134-14 4 Not Available [facility] ([facility]) [address] [place], [address], 10/10/2022 08:19:53 10/09/19 23 10/10/2022 BASIC METAB OLIC PANEL (8) potassium 4.1 mmol/ L 3.5-5. 2 Not Available [facility] ([facility]) [address] [place], [address], 10/10/2022 08:19:53 10/09/19 23 10/10/2022 BASIC METAB OLIC PANEL (8) chloride 103 mmol/ L 96-106 Not Available [facility] ([facility]) [address] [place], [address], 10/10/2022 08:19:53 10/09/19 23 10/10/2022 BASIC METAB OLIC PANEL (8) carbon dioxide, total 28 mmol/ L 20-29 Not Available [facility] ([facility]) [address] [place], [address], 10/10/2022 08:19:53 10/09/19 23 10/10/2022 BASIC METAB OLIC PANEL (8) calcium 8.5 mg/dL 8.7-10 .3 below low normal Not Available [facility] ([facility]) [address] [place], [address], 10/10/2022 08:19:53 10/09/19 23 10/10/2022 CBC/D IFF AMBIG UOUS DEFAU LT WBC 4.7 x10e3 /uL 3.4-10 .8 Not Available [facility] ([facility]) [address] [place], [address], 10/10/2022 08:19:52 10/09/19 23 10/10/2022 CBC/D IFF AMBIG UOUS DEFAU LT RBC 4.42 x10e6 /uL 3.77-5 .28 Not Available [facility] ([facility]) [address] [facility], [place], [address], 10/10/2022 08:19:52 10/09/19 23 10/10/2022 CBC/D IFF AMBIG UOUS DEFAU LT hemoglobin 12.6 g/dL 11.1-1 5.9 Not Available [facility] ([facility]) [address] [facility], [place], [address], 10/10/2022 08:19:52 10/09/19 23 10/10/2022 CBC/D IFF AMBIG UOUS DEFAU LT hematocrit 39.3 % 34.0-4 6.6 Not Available [facility] ([facility]) [address] [facility], [place], [address], 10/10/2022 08:19:52 10/09/19 23 10/10/2022 CBC/D IFF AMBIG UOUS DEFAU LT MCV 89 fL 79-97 Not Available [facility] ([facility]) [address] [place], [address], 10/10/2022 08:19:52 10/09/19 23 10/10/2022 CBC/D IFF AMBIG UOUS DEFAU LT MCH 28.5 pg 26.6-3 3.0 Not Available [facility] ([facility]) [address] [place], [address], 10/10/2022 08:19:52 10/09/19 23 10/10/2022 CBC/D IFF AMBIG UOUS DEFAU LT MCHC 32.1 g/dL 31.5-3 5.7 Not Available [facility] ([facility]) [address] [place], [address], 10/10/2022 08:19:52 10/09/19 23 10/10/2022 CBC/D IFF AMBIG UOUS DEFAU LT RDW 13.4 % 11.7-1 5.4 Not Available [facility] ([facility]) [address] [facility], [place], [address], 10/10/2022 08:19:52 10/09/19 23 10/10/2022 CBC/D IFF AMBIG UOUS DEFAU LT platelets 221 x10e3 /uL 150-45 0 Not Available [facility] ([facility]) [address] [facility], [place], [address], 10/10/2022 08:19:52 10/09/19 23 10/10/2022 CBC/D IFF AMBIG UOUS DEFAU LT neutrophils 53 % not estab. Not Available [facility] ([facility]) [address] [facility], [place], [address], 10/10/2022 08:19:52 10/09/19 23 10/10/2022 CBC/D IFF AMBIG UOUS DEFAU LT lymphs 34 % not estab. Not Available [facility] ([facility]) [address] [facility], [place], [address], 10/10/2022 08:19:52 10/09/19 23 10/10/2022 CBC/D IFF AMBIG UOUS DEFAU LT monocytes 7 % not estab. Not Available [facility] ([facility]) [address] [facility], [place], [address], 10/10/2022 08:19:52 10/09/19 23 10/10/2022 CBC/D IFF AMBIG UOUS DEFAU LT eos 5 % not estab. Not Available [facility] ([facility]) [address] [facility], [place], [address], 10/10/2022 08:19:52 10/09/19 23 10/10/2022 CBC/D IFF AMBIG UOUS DEFAU LT basos 1 % not estab. Not Available [facility] ([facility]) [address] [facility], [place], [address], 10/10/2022 08:19:52 10/09/19 23 10/10/2022 CBC/D IFF AMBIG UOUS DEFAU LT immature cells rn training Not Available [facility] ([facility]) [address] [facility], [place], [address], 10/10/2022 08:19:52 10/09/19 23 10/10/2022 CBC/D IFF AMBIG UOUS DEFAU LT neutrophils (absolute) 2.5 x10e3 /uL 1.4-7. 0 Not Available [facility] ([facility]) [address] [place], [address], 10/10/2022 08:19:52 10/09/19 23 10/10/2022 CBC/D IFF AMBIG UOUS DEFAU LT lymphs (absolute) 1.6 x10e3 /uL 0.7-3. 1 Not Available [facility] ([facility]) [address] [place], [address], 10/10/2022 08:19:52 10/09/19 23 10/10/2022 CBC/D IFF AMBIG UOUS DEFAU LT monocytes(ab solute) 0.3 x10e3 /uL 0.1-0. 9 Not Available [facility] ([facility]) [address] [place], [address], 10/10/2022 08:19:52 10/09/19 23 10/10/2022 CBC/D IFF AMBIG UOUS DEFAU LT eos (absolute) 0.2 x10e3 /uL 0.0-0. 4 Not Available [facility] ([facility]) [address] [place], [address], 10/10/2022 08:19:52 10/09/19 23 10/10/2022 CBC/D IFF AMBIG UOUS DEFAU LT baso (absolute) 0.0 x10e3 /uL 0.0-0. 2 Not Available [facility] ([facility]) [address] [facility], [place], [address], 10/10/2022 08:19:52 10/09/19 23 10/10/2022 CBC/D IFF AMBIG UOUS DEFAU LT immature granulocytes 0 % not estab. Not Available [facility] ([facility]) [address] [facility], [place], [address], 10/10/2022 08:19:52 10/09/19 23 10/10/2022 CBC/D IFF AMBIG UOUS DEFAU LT immature grans (abs) 0.0 x10e3 /uL 0.0-0. 1 Not Available [facility] ([facility]) [address] [facility], [place], [address], 10/10/2022 08:19:52 10/09/19 23 10/10/2022 CBC/D IFF AMBIG UOUS DEFAU LT NRBC rn training Not Available [facility] ([facility]) [address] [facility], [place], [address], 10/10/2022 08:19:52 10/09/19 23 10/10/2022 CBC/D IFF AMBIG UOUS DEFAU LT hematology comments: rn training A hand- writt en panel /prof ile was recei senait from your offic e. In accor dance with the [facility] Fareed samuels Test Code Polic y dated March 2003, we have assig natan CBC with Diffhuma santos al/Pl murphy t, Test Code #[address]. If this is not the testi ng you wishe d to recei ve on this speci men, pleas e conta ct the [facility] Demetria t Inqui ry/ Techn ical Servi tiarra Depar tment to kingsley fy the test order . We appre ciate your busin ess. Not Available [facility] ([facility]) [address] [facility], [place], [address], 10/10/2022 08:19:52 10/30/19 24 10/30/2023 CBC WITH DIFFE RENTI AL/PL ATELE T WBC 4.7 x10e3 /uL 3.4-10 .8 Not Available [facility] ([facility]) [address] [place], [address], 10/31/2023 06:21:32 10/30/19 24 10/30/2023 CBC WITH DIFFE RENTI AL/PL ATELE T RBC 4.36 x10e6 /uL 3.77-5 .28 Not Available [facility] ([facility]) [address] [place], [address], 10/31/2023 06:21:32 10/30/19 24 10/30/2023 CBC WITH DIFFE RENTI AL/PL ATELE T hemoglobin 12.9 g/dL 11.1-1 5.9 Not Available [facility] ([facility]) [address] [place], [address], 10/31/2023 06:21:32 10/30/19 24 10/30/2023 CBC WITH DIFFE RENTI AL/PL ATELE T hematocrit 39.1 % 34.0-4 6.6 Not Available [facility] ([facility]) [address] [place], [address], 10/31/2023 06:21:32 10/30/19 24 10/30/2023 CBC WITH DIFFE RENTI AL/PL ATELE T MCV 90 fL 79-97 Not Available [facility] ([facility]) [address] [place], [address], 10/31/2023 06:21:32 10/30/19 24 10/30/2023 CBC WITH DIFFE RENTI AL/PL ATELE T MCH 29.6 pg 26.6-3 3.0 Not Available [facility] ([facility]) [address] [place], [address], 10/31/2023 06:21:32 10/30/19 24 10/30/2023 CBC WITH DIFFE RENTI AL/PL ATELE T MCHC 33.0 g/dL 31.5-3 5.7 Not Available [facility] ([facility]) [address] [facility], [place], [address], 10/31/2023 06:21:32 10/30/19 24 10/30/2023 CBC WITH DIFFE RENTI AL/PL ATELE T RDW 13.1 % 11.7-1 5.4 Not Available [facility] ([facility]) [address] [facility], [place], [address], 10/31/2023 06:21:32 10/30/19 24 10/30/2023 CBC WITH DIFFE RENTI AL/PL ATELE T platelets 186 x10e3 /uL 150-45 0 Not Available [facility] ([facility]) [address] [facility], [place], [address], 10/31/2023 06:21:32 10/30/19 24 10/30/2023 CBC WITH DIFFE RENTI AL/PL ATELE T neutrophils 55 % not estab. Not Available [facility] ([facility]) [address] [facility], [place], [address], 10/31/2023 06:21:32 10/30/19 24 10/30/2023 CBC WITH DIFFE RENTI AL/PL ATELE T lymphs 32 % not estab. Not Available [facility] ([facility]) [address] [facility], [place], [address], 10/31/2023 06:21:32 10/30/19 24 10/30/2023 CBC WITH DIFFE RENTI AL/PL ATELE T monocytes 7 % not estab. Not Available [facility] ([facility]) [address] [facility], [place], [address], 10/31/2023 06:21:32 10/30/19 24 10/30/2023 CBC WITH DIFFE RENTI AL/PL ATELE T eos 5 % not estab. Not Available [facility] ([facility]) [address] [place], [address], 10/31/2023 06:21:32 10/30/19 24 10/30/2023 CBC WITH DIFFE RENTI AL/PL ATELE T basos 1 % not estab. Not Available [facility] ([facility]) [address] [facility], [place], [address], 10/31/2023 06:21:32 10/30/19 24 10/30/2023 CBC WITH DIFFE RENTI AL/PL ATELE T immature cells BARREL PAINTER Not Available [facility] ([facility]) [address] [place], [address], 10/31/2023 06:21:32 10/30/19 24 10/30/2023 CBC WITH DIFFE RENTI AL/PL ATELE T neutrophils (absolute) 2.7 x10e3 /uL 1.4-7. 0 Not Available [facility] ([facility]) [address] [place], [address], 10/31/2023 06:21:32 10/30/19 24 10/30/2023 CBC WITH DIFFE RENTI AL/PL ATELE T lymphs (absolute) 1.5 x10e3 /uL 0.7-3. 1 Not Available [facility] ([facility]) [address] [place], [address], 10/31/2023 06:21:32 10/30/19 24 10/30/2023 CBC WITH DIFFE RENTI AL/PL ATELE T monocytes(ab solute) 0.3 x10e3 /uL 0.1-0. 9 Not Available [facility] ([facility]) [address] [place], [address], 10/31/2023 06:21:32 10/30/19 24 10/30/2023 CBC WITH DIFFE RENTI AL/PL ATELE T eos (absolute) 0.2 x10e3 /uL 0.0-0. 4 Not Available [facility] ([facility]) [address] [facility], [place], [address], 10/31/2023 06:21:32 10/30/19 24 10/30/2023 CBC WITH DIFFE RENTI AL/PL ATELE T baso (absolute) 0.0 x10e3 /uL 0.0-0. 2 Not Available [facility] ([facility]) [address] [facility], [place], [address], 10/31/2023 06:21:32 10/30/19 24 10/30/2023 CBC WITH DIFFE RENTI AL/PL ATELE T immature granulocytes 0 % not estab. Not Available [facility] ([facility]) [address] [facility], [place], [address], 10/31/2023 06:21:32 10/30/19 24 10/30/2023 CBC WITH DIFFE RENTI AL/PL ATELE T immature grans (abs) 0.0 x10e3 /uL 0.0-0. 1 Not Available [facility] ([facility]) [address] [place], [address], 10/31/2023 06:21:32 10/30/19 24 10/30/2023 CBC WITH DIFFE RENTI AL/PL ATELE T NRBC BARREL PAINTER Not Available [facility] ([facility]) [address] [place], [address], 10/31/2023 06:21:32 10/30/19 24 10/30/2023 CBC WITH DIFFE RENTI AL/PL ATELE T hematology comments: BARREL PAINTER Not Available [facility] ([facility]) [address] [place], [address], 10/31/2023 06:21:32 10/30/19 24 10/31/2023 BASIC METAB OLIC PANEL (8) glucose 86 mg/dL 70-99 Not Available [facility] ([facility]) [address] [place], [address], 10/31/2023 06:21:34 10/30/19 24 10/31/2023 BASIC METAB OLIC PANEL (8) BUN 17 mg/dL 8-27 Not Available [facility] ([facility]) [address] [facility] [place], [address], 10/31/2023 06:21:34 10/30/19 24 10/31/2023 BASIC METAB OLIC PANEL (8) creatinine 1.02 mg/dL 0.57-1 .00 above high normal Not Available [facility] ([facility]) [address] [facility] [place], [address], 10/31/2023 06:21:34 10/30/19 24 10/31/2023 BASIC METAB OLIC PANEL (8) eGFR 58 mL/mi n/1.7 3 >59 below low normal Not Available [facility] ([facility]) [address] [facility] [place], [address], 10/31/2023 06:21:34 10/30/19 24 10/31/2023 BASIC METAB OLIC PANEL (8) BUN/creatini ne ratio 17 12-28 Not Available [facility] ([facility]) [address] [facility] [place], [address], 10/31/2023 06:21:34 10/30/19 24 10/31/2023 BASIC METAB OLIC PANEL (8) sodium 144 mmol/ L 134-14 4 Not Available [facility] ([facility]) [address] [facility] [place], [address], 10/31/2023 06:21:34 10/30/19 24 10/31/2023 BASIC METAB OLIC PANEL (8) potassium 4.1 mmol/ L 3.5-5. 2 Not Available [facility] ([facility]) [address] [facility] [place], [address], 10/31/2023 06:21:34 10/30/19 24 10/31/2023 BASIC METAB OLIC PANEL (8) chloride 104 mmol/ L 96-106 Not Available [facility] ([facility]) [address] [facility] [place], [address], 10/31/2023 06:21:34 10/30/19 24 10/31/2023 BASIC METAB OLIC PANEL (8) carbon dioxide, total 25 mmol/ L 20-29 Not Available [facility] ([facility]) [address] [facility] [place], [address], 10/31/2023 06:21:34 10/30/19 24 10/31/2023 BASIC METAB OLIC PANEL (8) calcium 8.5 mg/dL 8.7-10 .3 below low normal Not Available [facility] ([facility]) [address] [place], [address], 10/31/2023 06:21:34 10/30/19 24 10/31/2023 LIPID PANEL cholesterol, total 194 mg/dL 100-19 9 Not Available [facility] ([facility]) [address] [place], [address], 10/31/2023 06:21:35 10/30/19 24 10/31/2023 LIPID PANEL triglyceride s 71 mg/dL 0-149 Not Available [facility] ([facility]) [address] [place], [address], 10/31/2023 06:21:35 10/30/19 24 10/31/2023 LIPID PANEL HDL cholesterol 66 mg/dL >39 Not Available [facility] ([facility]) [address] [place], [address], 10/31/2023 06:21:35 10/30/19 24 10/31/2023 LIPID PANEL VLDL cholesterol dick 13 mg/dL 5-40 Not Available [facility] ([facility]) [address] [place], [address], 10/31/2023 06:21:35 10/30/19 24 10/31/2023 LIPID PANEL LDL chol calc ([facility]) 115 mg/dL 0-99 above high normal Not Available [facility] ([facility]) [address] [facility], [place], [address], 10/31/2023 06:21:35 10/30/19 24 10/31/2023 LIPID PANEL comment: BARREL PAINTER Not Available [facility] ([facility]) [address] [facility], [place], [address], 10/31/2023 06:21:35 10/30/1910/31/2023 HEMOG LOBIN A1C hemoglobin A1C 5.6 % 4.8-5. 6 Predi abete s: 5.7 - 6.4 Diabe rivka: >6.4 Glyce beni contr ol for adult s with diabe rivka: <7.0 Not Available [facility] ([facility]) [address] [facility], [place], [address], 10/31/2023 06:21:36 10/30/1910/31/2023 FOLAT E (FOLI C ACID) , SERUM folate (folic acid), serum >20.0 NG/mL >3.0 A serum folat e jhonatan ntrat ion of less than 3.1 ng/mL is consi dered to repre sent clini dick defic iency . Not Available [facility] ([facility]) [address] [facility], [place], [address], 10/31/2023 06:21:36 10/30/19 24 10/31/2023 VITAM IN D, 25-HY DROXY vitamin D, 25-hydroxy 49.7 NG/mL 30.0-1 00.0 Vitam in D defic iency has been defin ed by the Insti tute of Medic ine and an Endoc rine Socie ty pract ice guide line as a level of serum 25-OH vitam in D less than 20 ng/mL (1,2) . The Endoc rine Socie ty went on to furth er defin e vitam in D insuf ficie ncy as a level betwe en 21 and 29 ng/mL (2). 1. IOM (Inst itute of Medic ine). 2010. Dieta ry refer ence intak es for calci um and D. Jordyn benitez [place]: The [facility] . 2. Parker villareal MF, Dillan philippe [place], Shanae off-F errar i BARKER, et al. Evalu ation , treat ment, and preve ntion of vitam in D defic iency : an Endoc rine Socie ty clini dick pract ice guide line. JCEM. 2010; 96(7) :1911 -30. Not Available [facility] ([facility]) [address] [facility], [place], [address], 10/31/2023 06:21:37 10/30/19 24 10/31/2023 VITAM IN B12 vitamin B12 541 pg/mL 232-12 45 Not Available [facility] ([facility]) [address] [facility], [place], [address], 10/31/2023 06:21:38 08/26/20 22 08/26/2022 MAMMO , scree kaia, bilat eral No observ ation record ed. [id number], [place], [address], 11/19/2022 05:01:48 01/18/20 24 01/18/2024 MAMMO , scree kaia, digit al, bilat eral No observ ation record ed. [email or web address] [address], [place], [address], 02/06/2024 11:51:16 06/01/20 24 05/31/2024 XR, chest , 2 view No observ ation record ed. Imaging [address] [address], [place], [address], 06/01/2024 12:10:27 06/23/20 24 06/23/2024 XR, cervi dick spine No observ ation record ed. [facility] [address] [facility] [facility] [address], [place], [address], 06/24/2024 09:04:42 Result Notes None recorded. Problems Name Problem SNOMED Code Status Onset Date Resolution Date Notes Provider Name and Address Organization Details Recorded Time Chronic kidney disease stage 3 490401471 Active 2022 Floresita Mathews MD [address], [place], [address] , [employer] 3 13:45:21 Cobalamin deficiency 699710310 Active 2022 Floresita Mathews MD [address], [address], [place], [address] , [employer] 3 14:27:24 Vitamin D deficiency 06281929 Active 2022 Floresita Mathews MD [address], [address], [place], [address] , [employer] 3 14:29:06 Prediabetes 883398706 Active 2022 Floresita Mathews MD [address], [address], [place], [address] , [employer] 3 14:31:29 Primary insomnia 6499833 Active 2023 AMADO Patterson [address], [place], [address] , [employer] 4 12:00:50 Otitis externa 4020249 Active 2023 AMADO Patterson [address], [place], [address] , [facility] [employer] 4 12:06:53 Neck pain 88941438 Active 2023 AMADO Patterson [address], [place], [address] , [facility] 4 12:08:43 Thoracic back pain 845221421 Active 2023 AMADO Patterson [address], [place], [address] , [facility] 4 12:08:51 Low back pain 458406553 Active 2023 AMADO Patterson [address], [place], [address] , [facility] 4 12:09:31 Degeneration of cervical intervertebra l disc 16885481 Active 2023 AMADO Patterson [address], [place], [address] , [facility] 4 10:19:02 Neuropathy 788212002 Active 2024 AMADO Patterson [address], [place], [address] , [facility] 5 14:52:46 Disorder of thyroid gland 59241648 Active Not Available [facility] 3 04:49:00 Cataract 217444483 Active Not Available [facility] 3 04:49:00 Dyspnea 662440695 Active 2021 Not Available [facility] 3 04:49:00 Edema 329956069 Active Not Available [facility] 3 04:49:00 Eruption 767127852 Active Not Available [facility] 3 04:49:00 Genital herpes simplex 72055329 Active Not Available [facility] 3 04:49:00 Hypoparathyro idism 17816706 Active Not Available [facility] 3 04:49:00 Hypertensive disorder 53226523 Active Not Available [facility] 3 04:49:00 Osteoarthriti s 461039848 Active knee Not Available [facility] 3 04:49:00 Clinical finding Active Not Available [facility] 3 04:49:00 Obesity 784999284 Active Not Available [facility] 3 04:49:00 Verruca plantaris 20151326 Active Not Available [facility] 3 04:49:00 Chronic cough 04186096 Active 2021 Not Available [facility] 3 04:49:01 Marijuana user 087070488 Active 2021 Not Available [facility] 3 04:49:01 Posterior rhinorrhea 26929978 Active 2021 Not Available [facility] 3 04:49:01 Obstructive sleep apnea syndrome 87387033 Active 2018 Not Available [facility] 3 04:49:01 Pain in limb 68361029 Active Not Available [facility] 3 04:49:01 Notes:Some problems listed i n Document: #[id number] could not be added to this patient's chart. Please review this document and add these problems to the patient's chart manually as needed. Problem Notes None recorded. Procedures Surgical History Date Name Laterality Status Provider Name and Address Organization Details Recorded Time 01/20/20 24 Most Recent Mammogram completed Lisseth Chen RN [facility] [employer] [facility] 03/07/2024 11:33:45 09/07/20 23 Medicare Wellness CPT Code, subsequent completed Ramez Chandler RN [facility] [employer] [facility] 09/07/2023 13:58:23 09/21/19 05 shoulder manipulation completed Lisseth Chen RN [facility] [employer] [facility] 03/07/2024 11:25:57 09/21/18 98 Hysterectomy completed Lisseth Chen RN [facility] [employer] [facility] 03/07/2024 11:25:28 01/19/19 90 delivery completed Lisseth Chen RN [facility] [employer] [facility] 03/07/2024 11:25:16 Imaging Results Imaging Date Name Status [facility] by [facility] Details LastModified Time 08/26/2022 MAMMO, screening, bilateral completed [id number] [address] [place] [address] [address] [facility], [place], [address], 11/19/2022 05:01:48 01/18/2024 MAMMO, screening, digital, bilateral [email or web address] [address], [place], [address], 02/06/2024 11:51:16 05/31/2024 XR, chest, 2 view completed [address], [place], [address], 06/01/2024 12:10:27 06/23/2024 XR, cervical spine completed [address] [facility] [address], [place], [address], 06/24/2024 09:04:42 Procedure Notes None recorded. Medical Equipment None Reported. Allergies Allergen ID Allergen Name Allergen Category Reaction Reaction Severity Criticality Documentation Date Start Date Code Code System Note Provider Name and Address Organization Details Recorded Time 58601 lactose food,medi cation Not available Not available Not available 05/31/2024 6211 RxNorm Lisseth Chen RN null, [place] - [facility] [employer] 4 10:57:44 7508 lactase medicatio n Not available Not available Not available 11/19/2022 16329 RxNorm Not Available [facility] 3 05:01:16 Medications Name Sig Start Date Stop Date Status Note LastModified by Organization Details LastModified Time Prescripti on - Renewal active Not Available Not Available Not Available cetirizine 10 mg tablet TAKE 1 TABLET BY MOUTH ONCE DAILY NEEDED FOR 20 DAYS 10/20 completed Not Available Not Available Not Available benzonatat e 200 mg capsule TAKE 1 CAPSULE BY MOUTH 2 TO 3 TIMES DAILY NEEDED 10/20 completed Not Available Not Available Not Available meloxicam 15 mg tablet Take 1 tablet every day by oral route. active Not Available Not Available No t Available famotidine 40 mg tablet Take 1 tablet every day by oral route in the evening for 30 days. active Not Available Not Available No t Available gabapentin 400 mg capsule Take 1 capsule twice a day by oral route. active Not Available Not Available No t Available cyanocobal deluna (vit B-12) 1,000 mcg tablet Take 1000 tablets every day by oral route. 05/03/ 2022 09/10 /2024 completed Not Available Not Available Not Available acetaminop hen 300 mg-codeine 30 mg tablet 12/03 completed Not Available Not Available Not Available acyclovir 400 mg tablet Take 1 tablet twice a day by oral route. active Not Available Not Available No t Available valacyclov ir 500 mg tablet Take 1 tablet every day by oral route. 2023 active Not Available Not Available Not Avai lable tramadol 50 mg tablet TAKE 1 TABLET BY MOUTH EVERY 6 HOURS NEEDED FOR THREE DAYS 03/07 completed Not Available Not Available Not Available ofloxacin 0.3 % ear drops INSTILL 10 DROPS TO AFFECTED EAR EVERY DAY FOR 3 DAYS DIRECTED 05/31 completed Not Available Not Available Not Available prednisolo ne acetate 1 % eye drops,susp ension INSTILL 1 DROP INTO AFFECTED EYE TID - BEGIN AFTER SURGERY active Not Available Not Available No t Available baclofen 10 mg tablet 2024 active Not Available Not Available Not Avai lable amlodipine 10 mg tablet TAKE 1 TABLET BY MOUTH DAILY 03/07 completed /2 tab daily MK 2 Not Available Not Available Not Available cephalexin 500 mg capsule 12/03 completed Not Available Not Available Not Available calcitriol 0.5 mcg capsule TAKE 1 CAPSULE BY MOUTH TWICE A DAY active Not Available Not Available No t Available diclofenac 0.1 % eye drops active Not Available Not Available Not Available tobramycin 0.3 % eye drops INSTILL 1 DROP QID IN SURGICAL EYE STARTING 1 DAY BEFORE SURGERY active Not Available Not Available No t Available triamcinol one acetonide 0.1 % topical ointment APPLY TOPICALLY TO THE AFFECTED AREA TWICE DAILY NEEDED 05/31 completed Not Available Not Available Not Available nystatin 100,000 unit/gram topical cream ALFREDITO EXT AA BID PRN 08/18 completed Not Available Not Available Not Available fluorometh olone 0.1 % eye drops,susp ension 12/18 completed Not Available Not Available Not Available gabapentin 300 mg capsule Take 1 cap by mouth twice daily 2024 active Not Available Not Available Not Avai lable diclofenac sodium 75 mg tablet,del ayed release active Not Available Not Available Not Available montelukas t 10 mg tablet Take 1 tablet every day by oral route. active Not Available Not Available No t Available hydroxyzin e HCl 25 mg tablet TAKE 1 TABLET BY MOUTH THREE TIMES DAILY NEEDED 05/31 completed Not Available Not Available Not Available hydrochlor othiazide 25 mg tablet active Not Available Not Available Not Available furosemide 20 mg tablet Take 1 tablet every day by oral route as needed. 05/31 completed Not Available Not Available Not Available ibuprofen 600 mg tablet Take 1 tablet 3 times a day by oral route as needed for 30 days. 03/07 completed Not Available Not Available Not Available methylpred nisolone 4 mg tablets in a dose pack TAKE 6 TABLETS ON DAY 1 DIRECTED ON PACKAGE AND DECREASE BY 1 TAB EACH DAY FOR A TOTAL OF 6 DAYS 03/07 completed Not Available Not Available Not Available albuterol sulfate HFA 90 mcg/actuat ion aerosol inhaler INHALE 2 PUFFS BY MOUTH EVERY 4 TO 6 HOURS NEEDED 05/31 completed Not Available Not Available Not Available ipratropiu m bromide 42 mcg (0.06 %) nasal spray [place] 2 sprays 3 times a day by intranasa l route as directed for 30 days. 03/07 completed Not Available Not Available Not Available fluticason e propionate 50 mcg/actuat ion nasal spray,susp ension 2 sprays IEN daily active Not Available Not Available No t Available calcitriol 0.25 mcg capsule 2 po qday 10/20 completed Not Available Not Available Not Available naproxen 500 mg tablet 1 po bid prn pain active Not Available Not Available No t Available Premarin 0.625 mg/gram vaginal cream INSERT 1 GRAM VAGINALLY 2 TIMES PER WEEK 08/18 completed Not Available Not Available Not Available Calcium 600 2 tablets in AM 2 tablets in PM 2017 active Not Available Not Available Not Avai lable Slow-Mag 1 tab daily active Not Available Not Available No t Available multivitam in 1 tablet a day 2017 active Not Available Not Available Not Avai lable MoviPrep 100 gram-7.5 gram-2.691 gram oral powder packet active Not Available Not Available Not Available Probiotic 1 gummy daily active Not Available Not Available No t Available Fluzone High-Dose 6781-3711 (PF) 180 mcg/0.5 mL intramuscu lar syringe ADM 0.5ML IM UTD active Not Available Not Available No t Available Durolane 60 mg/3 mL intra-rickie cular syringe 10/20 completed Not Available Not Available Not Available Neuriva Plus Brain Performanc e 1 gummy daily active Not Available Not Available No t Available Vitals Date Recorded Body mass index (BMI) Body height Oxygen saturation Oxygen saturation in Arterial blood by Pulse oximetry Heart rate Body temperature Body weight Systolic blood pressure Diastolic blood pressure Provider Name and Address Organization Details Last Updated DateTime 2 29 kg/m2 162.56 cm 100 % 100 % 74 /min 97.7 [degF] 00955.1 1 g 124 mm[Hg] 70 mm[Hg] Not Available [employer] 3 04:42:26 Date Recorded Body weight Body temperature Heart rate Oxygen saturation Oxygen saturation in Arterial blood by Pulse oximetry Systolic blood pressure Diastolic blood pressure Provider Name and Address Organization Details Last Updated DateTime 3 24769.9 6 g 97.3 [degF] 75 /min 98 % 98 % 166 mm[Hg] 80 mm[Hg] Ramez Chandler RN [facility] [employer] [facility] 3 14:01:20 Date Recorded Body weight Body mass index (BMI) Body height Pain severity - 0-10 verbal numeric rating [Score] - Reported Body temperature Heart rate Respiratory rate Oxygen saturation Oxygen saturation in Arterial blood by Pulse oximetry Systolic blood pressure Diastolic blood pressure Provider Name and Address Organization Details Last Updated DateTime 4 38572.2 9 g 27.1 kg/m2 162.56 cm 0 97.2 [degF] 75 /min 20 /min 0 % 0 % 136 mm[Hg] 70 mm[Hg] Lisseth Chen RN [facility] [employer] [facility] 4 11:29:33 Date Recorded Body height Body mass index (BMI) Body weight Pain severity - 0-10 verbal numeric rating [Score] - Reported Body temperature Heart rate Respiratory rate Oxygen saturation Oxygen saturation in Arterial blood by Pulse oximetry Systolic blood pressure Diastolic blood pressure Provider Name and Address Organization Details Last Updated DateTime 4 162.56 cm 27.4 kg/m2 31005.6 4 g 0 97.1 [degF] 71 /min 20 /min 98 % 98 % 142 mm[Hg] 88 mm[Hg] Lisseth Chen RN [place] - [facility] [employer] 4 11:03:42 Date Recorded Body height Body mass index (BMI) Body weight Oxygen saturation Oxygen saturation in Arterial blood by Pulse oximetry Body temperature Respiratory rate Heart rate Pain severity - 0-10 verbal numeric rating [Score] - Reported Systolic blood pressure Diastolic blood pressure Provider Name and Address Organization Details Last Updated DateTime 5 162.56 cm 28 kg/m2 07727.6 1 g 99 % 99 % 97.7 [degF] 20 /min 68 /min 0 120 mm[Hg] 72 mm[Hg] Lisseth Chen RN [place] - [facility] [employer] 5 14:35:17 Social History Question Answer Notes LastModified by Organizat ion Details LastModified Time Tobacco Smoking Status Never Smoker Not Available [employer] 11/19/2022 04:11:01 Do You Have An Advance Directive? Yes [id number] Information not available 11/19/2022 What Is Your Level Of Alcohol Consumption? None Information not available 10/20/2024 Are You Blind Or Do You Have Difficulty Seeing? No [id number] Information not available 11/19/2022 Is Blood Transfusion Acceptable In An Emergency? Yes Information not available 03/07/2024 What Is Your Level Of Caffeine Consumption? Moderate [id number] Information not available 11/19/2022 How Much Tobacco Do You Chew? None [id number] Information not available 11/19/2022 What Is Your Code Status? Full Code Information not available 03/07/2024 In The 14 Days Before Symptom Onset, Have You Had Close Contact With A Laboratory-confi rmed COVID-19 While That Case Was Ill? No Information not available 03/07/2024 In The 14 Days Before Symptom Onset, Have You Had Close Contact With A Person Who Is Under Investigation For COVID-19 While That Person Was Ill? No Information not available 03/07/2024 Are You Currently Employed? No Information not available 05/31/2024 Are You Deaf Or Do You Have Serious Difficulty Hearing? No [id number] Information not available 11/19/2022 What Type Of Diet Are You Following? REGULAR [id number] Information not available 11/19/2022 Which Illicit Or Recreational Drugs Have You Used? No [id number] Information not available 11/19/2022 Do You Or Have You Ever Used E-cigarettes Or Vape? Never Used Electronic Cigarettes [id number] Information not available 11/19/2022 What Is Your Occupation? Retired [id number] Information not available 11/19/2022 How Many Days Of Moderate To Strenuous Exercise, Like A Brisk Walk, Did You Do In The Last 7 Days? 3 Information not available 03/07/2024 On Those Days That You Engage In Moderate To Strenuous Exercise, How Many Minutes, On Average, Do You Exercise? 29 Information not available 03/07/2024 Have There Been Any Changes To Your Family Or Social Situation? No Information not available 03/07/2024 Are There Any Guns Present In Your Home? Yes Information not available 03/07/2024 Do You Use Insect Repellent Routinely? Yes Information not available 03/07/2024 Where [facility] You Live? [facility] Information not available 03/07/2024 Advance Directive- Providers Has Reviewed Directive And Consents To Follow Them (insert Provider Name With Any Objectives In Notes Field) Yes Information not available 03/07/2024 Presence Of Domestic Violence No Information not available 03/07/2024 Guns Present In The Home? Yes Information not available 03/07/2024 Are You Able To Care For Yourself? Yes Information not available 03/07/2024 Are You Blind Or Do Yo Have Difficulty Seeing? No Information not available 03/07/2024 Are You Deaf Or Do You Have Serious Difficulty Hearing? No Information not available 03/07/2024 General Stress Level? Moderate Information not available 03/07/2024 Live Alone Of With Others? With Others Information not available 03/07/2024 Do You Have A Medical Power Of Outreach Team Member? Yes Information not available 03/07/2024 What Was The Date Of Your Most Recent Tobacco Screening? 01/21/2022 [id number] Information not available 11/19/2022 How Many Children Do You Have? 1 Information not available 03/07/2024 Do You Have Any Pets? No Information not available 03/07/2024 What Is Your Relationship Status? Information not available 03/07/2024 Do You Use Your Seat Belt Or Car Seat Routinely? Yes Information not available 03/07/2024 Do You Have Smoke And Carbon Monoxide Detectors In Your Home? Yes Information not available 03/07/2024 Are You Passively Exposed To Smoke? Yes Information not available 03/07/2024 Do You Or Have You Ever Used Smokeless Tobacco? Never Used Smokeless Tobacco [id number] Information not available 11/19/2022 Are There Any Smokers In Your House? Yes Information not available 03/07/2024 Do You Participate In Social Media? Yes Information not available 03/07/2024 What Types Of Sporting Activities Do You Participate In? Stretching Information not available 03/07/2024 Do You Feel Stressed (tense, Restless, Nervous, Or Anxious, Or Unable To Sleep At Night)? [id number] Information not available 03/07/2024 Do You Use Sunscreen Routinely? Yes [id number].[id number] Information not available 11/19/2022 Have You Recently Traveled Abroad? No Information not available 03/07/2024 Sex: Unknown Functional Status Question Answer Note LastModified by Organizat ion Details LastModified Time Do you have difficulty walking or climbing stairs? No [id number] Information not available 11/19/2022 Do you have transportation difficulties? No Information not available 03/07/2024 Are you able to walk? YESWOREST Information not available 03/07/2024 Do you have difficulty doing errands alone? No [id number] Information not available 11/19/2022 Are you able to care for yourself? Yes Information n ot available 03/07/2024 Do you have difficulty dressing or bathing? No [id number] Information not available 11/19/2022 What is your exercise level? Moderate [id number] Information not available 11/19/2022 Mental Status Question Answer Note LastModified by Organizat ion Details LastModified Time Do you have difficulty concentrating, remembering or making decisions? No [id number] Information not available 11/19/2022 Family History Nothing Reported. Medical History Condition Response Other # 2 NEUROPATHY Y ARTHRITIS Y KIDNEY DISEASE Y OTHER # 1 Y Gynecological History Statement/Question Response If Post Menopausal, Age at Menopause 48 Date of Last Mammogram Date of Last Colonoscopy Most Recent Bone Density Menses Monthly N Date of Last Pap Smear Current Control Method Hysterectom y Most Recent Mammogram 01/20/2024 Breast Problems no Obstetrics History GPAL:G 0 P 0 0 0 0 Immunizations Vaccine Type Date Status Note Provider Nam e and Address Organization Details Recorded Time Influenza, high-dose, quadrivalent, PF 3 completed Jannie Papantonatos [employer] [facility] [employer] 03/07/2024 11:30:07 Influenza, high-dose, quadrivalent, PF 2 completed Jannie Papantonatos Selvz [facility] [employer] 03/07/2024 11:30:07 COVID-19, mRNA, LNP-S, PF, 100 mcg/0.5mL dose or 50 mcg/0.25mL dose 1 completed Jannie Papantonatos Selvz [place] [employer] [facility] [employer] 03/07/2024 11:30:07 COVID-19, mRNA, LNP-S, PF, 100 mcg/0.5mL dose or 50 mcg/0.25mL dose 2 completed Jannie Papantonatos Selvz [place] [facility] [employer] 03/07/2024 11:30:07 COVID-19, mRNA, LNP-S, PF, 100 mcg/0.5mL dose or 50 mcg/0.25mL dose 1 completed Jannie Papantonatos [employer] [place] [facility] [employer] 03/07/2024 11:30:07 COVID-19, mRNA, LNP-S, bivalent, PF, 50 mcg/0.5 mL or 25mcg/0.25 mL dose 2 completed Jannie Papantonatos null, [facility] 03/07/2024 11:30:07 COVID-19, mRNA, LNP-S, PF, anju-sucrose, 30 mcg/0.3 mL 3 completed [facility] 03/07/2024 11:30:07 Influenza, high-dose, trivalent, PF 7 completed [facility] 03/07/2024 11:30:07 COVID-19, mRNA, LNP-S, PF, 50 mcg/0.5 mL dose 2 completed [facility] 03/07/2024 11:30:07 COVID-19, mRNA, LNP-S, PF, 30 mcg/0.3 mL dose 1 completed [facility] 03/07/2024 11:30:07 COVID-19, mRNA, LNP-S, PF, 100 mcg/0.5mL dose or 50 mcg/0.25mL dose 1 completed [facility] 03/07/2024 11:30:07 Pneumococcal conjugate PCV 13 6 completed Not Available [facility] 11/19/2022 05:00:44 Influenza, high-dose, trivalent, PF 6 completed [facility] 03/07/2024 11:30:07 zoster live 0 completed [facility] 03/07/2024 11:30:07 Influenza, high-dose, quadrivalent, PF 1 completed Not Available [facility] 11/19/2022 05:00:45 Influenza, high-dose, quadrivalent, PF 0 completed Not Available [facility] 11/19/2022 05:00:45 Influenza, high-dose, trivalent, PF 9 completed Jannie Alcala null, [facility] 03/07/2024 11:30:07 Influenza, split virus, quadrivalent, PF 8 completed Not Available [facility] 11/19/2022 05:00:45 pneumococcal polysaccharide PPV23 6 completed Not Available [facility] 11/19/2022 05:00:46 Pneumococcal conjugate PCV 13 6 completed Not Available [facility] 11/19/2022 05:00:46 Influenza, split virus, quadrivalent, PF 5 completed Not Available [facility] 11/19/2022 05:00:46 Tdap 4 completed ALFONSO Velasquez, [facility] 03/07/2024 13:00:57 Past Encounters Encounter ID Performer Location Encounter Start Date Encounter Closed Date Diagnosis/Indication Diagnosis SNOMED-CT Code Diagnosis ICD10 Code Diagnosis Note [id number] [facility] [place] [address] [facility] [address] [place] [address] 02/05/2021 00:00:00 02/14/2021 17:38:26 [id number] [facility] [place] [address] [place] [address] 07/04/2021 00:00:00 07/04/2021 17:58:56 [id number] [facility] [place] [address] [place] [address] 10/15/2021 00:00:00 10/21/2021 13:39:42 [id number] [facility] [place] [address] [place] [address] 12/03/2021 00:00:00 12/18/2021 09:33:43 [id number] [facility] [place] [address] [place] [address] 01/21/2022 00:00:00 01/21/2022 16:51:27 [id number] [facility] [place] [address] [place] [address] 09/04/2022 00:00:00 09/19/2022 09:46:19 [id number] Floresita Mathews MD [facility] Primary Care [facility] [address] [facility] [address] [place] [address] 09/07/2023 13:56:00 09/07/2023 14:49:20 Adult health examination 733370937 Z00.00 Z13.220 Z13.1 Has gotten flu vaccine and covid boosterrec ommend shingles vaccinePne umovax 23 donePrevna r 13 doneRecomm end RSV vaccineMam mogram order givenDEXA order givenColon oscopy 02/04/22 repeat 2026-may not need further due to age Screening mammography 24 066773 Z12.31 Postmenopausal state 764 86147 Z78.0 Chronic ki dney disease stage 3 229748610 N18.30 stablesees nephrology Cobalamin deficiency 190 298908 E53.8 stable Vitamin D deficiency 347 54045 E55.9 Prediabetes 424303555 R7 3.03 doing unbgV1i done with Dr. Aguirre in March 2023 5.9Repeat done 06/11 was 5.1will check again with next labs in September [id number] AMADO Patterson [address] [address] 03/07/2024 11:15:37 03/07/2024 12:50:01 Chronic cough 42605715 R05.3 Primary insomnia 5854587 F51.01 Otitis externa 2125333 H 60.91 Administra tion of tetanus vaccine 254944854 Z23 [id number] AMADO Patterson [address] [address] 05/31/2024 10:48:51 05/31/2024 11:23:12 Chronic cough 46153535 R05.3 Chronic ki dney disease stage 3 276414629 N18.30 [id number] AMADO Patterson [address] [place] [address] 10/20/2024 14:15:08 10/20/2024 14:58:27 Degeneration of cervical intervertebral disc 44791162 M50.30 Has done XR and PT with no relief. She is taking baclofen at bedtime as needed Neuropathy 584927310 G62 .9 Believes she does not have neuropathy , has been taking gabapentin and wants to stop.Discu ssed EMG and trialling off of gabapentin . She is requesting neuro referral at this time. Health Concerns Section Related Observation LastModified by Organization Detai ls LastModified Time None Recorded Concern Status LastModified by Organization Details LastModified Time None Recorded Advance Directives Directive Y: Payers Encounter Date Sequence Insurance Name Policy Number Policy Hernandez Covered Member ID Hernandez Member ID Guarantor Name 09/07/2023 1 [facility] SOLUT[facility] (MEDICARE REPLACEMENT HMO) [id number] Eleonora L Gandhi [id number] Eleonora L Gandhi 03/07/2024 1 [facility] MEDIC[facility] SOLUT[facility] (MEDICARE REPLACEMENT HMO) [id number] Eleonora L Gandhi [id number] Eleonora L Gandhi 05/31/2024 1 [facility] - MEDICARE SOLUTIONS (MEDICARE REPLACEMENT HMO) [id number] Eleonora L Gandhi [id number] Eleonora L Gandhi 10/20/2024 1 [facility] - MEDICARE SOLUTIONS (MEDICARE REPLACEMENT HMO) [id number] Eleonora L Gandhi [id number] Eleonora L Gandhi Notes Date Note Type Note Provider Name and Address Organization Details Recorded Time 09/07/2023 text/html Here for julio cesarnes s examno chest pain or sob Floresita Mathews MD [address] [place] [address], [phone], [facility] [employer] 09/17/2023 17:59:35 03/07/2024 text/html Eleonora Gandhi is a 73 year old female patient here today to transition care. She was previously under the care of Dr. Mathews. She has a lingering cough that she had a few years ago and saw a speech language assistant. (Molly?). She was prescribed an albuterol inhaler that helped and the cough stopped before further testing. She would like to get a new prescription for an albuterol inhaler. The cough is mostly in the mornings around 6:30am and it is productive. Sometimes it will come back during the day. SOB at night sometimes, she thinks its due to trying to prevent coughing. No chest pain, fevers. She will see a speech language assistant on the . Does not take any medications at this time for CKD stage 3, follows with nephro. Has an appointment later this year and will discuss farxiga then. Has baclofen for sleep. She will try hydroxyzine in place of it. 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 She notices this only when she is at home. All testing (COVID/flu) negative. She has concerns that she may have issues with her ventilation. She plans to have her ducts cleaned and her house deep cleaned. She is taking Zyrtec and tessalon pearls without relief. Did not notice an improvement with albuterol inhaler. She wakes in the morning with a wet cough. She does sleep with a humdifier but states this is cleaned frequently. She has CKD 3 and her glass ribbon machine operator told has a cyst on her kidney. She would like a urine for microalbumin today. AMADO Patterson [address], [place], [address], [employer] 05/31/2024 11:22:56 10/20/2024 text/html Eleonora Gandhi is a 74 year old female patient here today to FU on imaging Had XR of cervical spine on 06/23/2024, has completed PT and found this ineffective. Was told she has neuropathy approx 3 years ago. Hsa been taking gabapentin since.Mostly concerned with spasms in her right foot, has mostly resolved.She does note tingling in right thigh if she stands too long.Would like to see neurology to discuss this further [place], SENIOR ORACLE DATABASE ADMINISTRATOR [address] [facility] [facility] [address], [place], [address], [facility] [employer] [facility] 10/20/2024 14:59:24 OBGyn Episode No OBEpisode recorded.
--- OUTSIDE RECORDS SUMMARY | 2024-12-12 11:05 | XMS_ITS ---
Author Organization [facility] Address [address] [place], [place] [id number] Care Team Providers Care Veterinary Bacteriologist Name Role Phone SantiagomaryMenaYusra Unavailable Unavailable SILVIO RODRIGUEZ Unavailable [phone] REASON FOR VISIT bunion pain follow up Encounters Encounter Location Date Provider Diagnosis [facility] [place] [address] [place], [place] [id number] 10/02/2023 SILVIO RODRIGUEZ Plan Of Treatment No Information Progress Notes * MENA BARTHSREEKANTHDOB:1950 (74 yo F)Acc No.[id number]:10/02/2023 Patient: NORA CLAROS Provider: Favio Rodriguez DPM :1950 A ge:73 Y S ex:Female Date:10/02/2023 Address:[address] [place] [address] Subjective: * Chief Complaints: * 1 . Bunion pain follow up. * Medical History: Objective: * Vitals: Assessment: Plan: * Treatment: * Billing Information: * Visit Code: * Procedure Codes: * Electronic signature of SILVIO RODRIGUEZ DPM on 12/12/2024 at 11:04 AM CDT Sign off status: Pending * Provider: Favio Rodriguez DPM Date: 10/02/2023 Generated for Vika macias/Gonzales/eTransmitting on: 0 12/12/2024 11:04 AM CDT
--- OUTSIDE RECORDS SUMMARY | 2024-12-12 11:05 | XMS_ITS ---
Author Organization [facility] Address [address] [place], [place] [phone] Care Team Providers Care Test Driller Name Role Phone SantiagomaryYusra Unavailable Unavailable SILVIO RODRIGUEZ Unavailable [phone] REASON FOR VISIT Possible bunion Medications Medication SIG (Take, Route, Frequency, Duration) Notes Start Date End Date Status Medrol 4 MG as directed Orally 09/11/2023 Active Vital Signs Height 66 in 09/11/2023 Weight 160 lbs 09/11/2023 BMI 25.82 kg/m2 09/11/2023 Height-cm 167.64 cm 09/11/2023 Weight-kg 72.57 kg 09/11/2023 Encounters Encounter Location Date Provider Diagnosis [facility] [place] [address] [place], [place] [phone] 09/11/2023 SILVIO RODRIGUEZ Osteophyte, right foot M25.774 ; Lesion of plantar nerve, right lower limb G57.61 and Pain in right foot M79.671 Assessments Encounter Date Diagnosis (ICD Code) Assessment Notes Treatment Notes Treatment Clinical Notes Section Notes 09/11/2023 Osteophyte, right foot (ICD-10 - M25.774) 09/11/2023 Lesion of plantar nerve, right lower limb (ICD-10 - G57.61) 09/11/2023 Pain in right foot (ICD-10 - M79.671) 09/11/2023 Other Recommend voltaren gel Plan Of Treatment Medication Medication Name Sig Start Date Stop Date Notes Medrol 4 MG as directed Orally 09/11/2023 Treatment Notes Assessment Notes Other Recommend voltaren g el Progress Notes * NORA BARTHDOB:1950 (74 yo F)Acc No.[id number]:09/11/2023 Progress Notes Patient: NORA CLAROS Provider: Favio Rodriguez DPM :1950 A ge:73 Y S ex:Female Date:09/11/2023 Address:[address] [place] [address] Subjective: * Chief Complaints: * P ossible bunion * HPI: H PI: New Complaint P atient presents for a new patient consultation. Patient complains of an issue to the lateral side of her right foot. She states it just aches. Patient denies any injury. D uration of problem is a few weeks. MA: sea, . * ROS: G eneral / Constitutional: Patient denies c hills, fever. E ndocrine: Patient denies e xcessive thirst, frequent urination. ? C ardiovascular: Patient denies s hortness of breath, chest pain. S kin: Patient denies m ole changes. * Medical History: * Surgical History: * Hospitalization/Major Diagno stic Procedure: * Medications: Objective: * Vitals: S hoe Size: 8.5, Wt:160lbs, Wt-k.57 kg, Ht: 66 in, Ht-cm: 167.64 cm, BMI:25.82Index, Body Surface Area: 1.84. * Examination: P hysical Examination: Gen: T he patient is awake, alert, well developed, well groomed and well nourished. They are in no apparent distress. . Musc: F oot structure is normal. No abnormalities noted. Muscle strength is 5/5 to all joints bilaterally. Pain on palpation of right lateral 5th metatarsal head. . Derm: S kin is warm and dry, with no rashes, good skin turgor and normal hair distribution. . Neuro: G rossly intact to light touch bilateral.. Vasc: D orsalis pedis and posterior tibial pulses 2+ bilaterally. No edema noted. Capillary fill time < 3 seconds to all digits. . X -Ray: RIGHT FOOT E xostosis noted on the lateral 5th MTH. ? Assessment: * Assessment: 1. O steophyte, right foot - M25.774 (Primary) 2 . L esion of plantar nerve, right lower limb - G57.61 3 . P ain in right foot - M79.671 Plan: * Treatment: * Procedure Codes: * Billing Information: * Visit Code: 70197 Office Visit, New Pt., Level 3. * Procedure Codes: * UCT BLENDING SUPERVISOR Sign off status: Completed true * Provider: Favio Rodriguez DPM Date: 11/12/2022 Generated for Vika macias/Gonzales/Gian on: 0 12/12/2024 11:05 AM CDT History and Physical Notes * HPI (History of Present Illness) Category Sub-Category Detail Notes Category Not es HPI New Complaint Patient presents for a new patient consultation. Patient complains of an issue to the lateral side of her right foot. She states it just aches. Patient denies any injury. Duration of problem is a few weeks. MA: sea, Examination Category Sub-Category Detail Notes Category Not es X-Ray RIGHT FOOT Exostosis noted on the lateral 5th MTH Physical Examination Gen: The patient is awake, alert, well developed, well groomed and well nourished. They are in no apparent distress. Vasc: Dorsalis pedis and p osterior tibial pulses 2+ bilaterally. No edema noted. Capillary fill time < 3 seconds to all digits. Neuro: Grossly intact to li ght touch bilateral. Musc: Foot structure is no rmal. No abnormalities noted. Muscle strength is 5/5 to all joints bilaterally. Pain on palpation of right lateral 5th metatarsal head. Derm: Skin is warm and dry , with no rashes, good skin turgor and normal hair distribution.
== END 2024-12-12 09:46 | disposition home or self-care (01) ==
DX: M47.812 Spondylosis without myelopathy or radiculopathy, cervical region (principal); M50.30 Other cervical disc degeneration, unspecified cervical region
CPT/HCPCS: 72125

== ENCOUNTER 2025-01-05 13:49 | Outpatient (CLI) | payer MEDICARE, SELFPAY ==
--- NOTE | ~2025-01-05 | DEXA_ITS ---
Bone Density Report Name: NORA BARTH Age: 74 Sex: Female Ethnicity: White Date of : 1950 Indication: postmenopausal; screening for osteoporosis; height loss; Referring Provider: CRISTIAN, ISAMAR Pfeiffer Study: Bone densitometry was performed. Exam Date: January 05, 2025 Accession number: [id number] Bone Density: Region BMD T-score Z-score Classification AP Spine(L1-L4) 0.977 -0.6 1.7 Normal Femoral Neck (Left) 0.742 -1.0 1.1 Normal Total Hip (Left) 0.902 -0.3 1.4 Normal Femoral Neck (Right) 0.776 -0.7 1.4 Normal Total Hip (Right) 0.866 -0.6 1.1 Normal Total Hip Mean 0.884 -0.5 1.3 Normal World Health Organization criteria for BMD impression classify patients as: Normal (T-score at or above -1.0), Osteopenia (T-score between -1.0 and -2.5), or Osteoporosis (T-score at or below -2.5). 10-year Fracture Risk: FRAX not reported because: All T-scores for Spine Total, Hip Total, Femoral Neck at or above -1.0 Clinical Information Provided by Patient: Has used the following medications: Vitamin D, Calcium Patient maximum height was 65 Menopause Age: 50 No regular weight bearing exercise Drinks caffeinated beverages Onset of menses at age 12 Number of children 2 Impression: The patient has normal bone mass. Discussion: BONE DENSITY IS ABOVE THE MINIMUM DESIRABLE LEVEL AT ALL SKELETAL SITES TESTED. This patient?s bone mineral density is above the minimum desirable level (T-score -1.0 or better) at all sites measured. The patient should follow a healthful lifestyle (good nutrition with adequate calcium and vitamin D, and appropriate weight-bearing exercise). Follow-Up: Consider repeating this study in 5 years or sooner if there is some new clinical indication. Reported by: BOBO on 01/05/2025 2:34:00 PM. Reviewed, dictated and finalized at location [facility]
--- OUTSIDE RECORDS SUMMARY | 2025-01-05 14:14 | XMS_ITS | Continuity of Care Document ---
Author Organization [facility] Address [address] [facility] [place] [address] Phone Care Team Providers Care Software Engineering Project Manager Name Role Phone Aman Huang MD Unavailable Unavailable Allergies, Adverse Reactions, Alerts Substance Reaction Status Criticality No Known Allergies Active No Inform ation Medications Medication Instructions Dosage Effective Dates (start - stop) Status Comments clotrimazole 1 % topical cream apply by topical route 2 times every day to the affected and surrounding areas of skin in the morning and evening 0.00 - Active calcitriol 0.5 mcg capsule take 1 capsule (0.5MCG) by oral route 2 times every day 0.5 MCG - Active Norvasc 10 mg tablet take 1 tablet (10MG ) by oral route every day - Active Procedures Procedure Date OFFICE/OUTPATIENT VISIT, EST OFFICE/OUTPATIENT VISIT, EST OFFICE/OUTPATIENT VISIT, EST OFFICE/OUTPATIENT VISIT, EST PREV VISIT, NEW, AGE 40-64 OFFICE/OUTPATIENT VISIT, NEW Advance Directives Directive Yes / No Effective Date File Name No Information Encounters Encounter Description Practice Location Reason(s) For Visit Diagnoses Date Provider Providers Copied on Encounter OFFICE/OUTPA TIENT VISIT, EST [facility], [address] [place], [place] [address] [place] [place], [id number] [place] tel:[phone] [facility] cataract (chief complaint) Cataract 5 Sal Newton. [address] [facility] [place], [address] , [place]. tel:[phone] Referring Provider: Anton Temple [address], [place], [place], [address]. tel:[phone] OFFICE/OUTPA TIENT VISIT, [facility], [address], [place], [place], [address], [place] tel:[phone] [facility] HTN (chief complaint)colon osocpy (chief complaint)foot itching (chief complaint)scar tissue (chief complaint) Dietary surveillance and counselingColo n polypPruritic conditionHemor rhoidBlood pressure elevated 5 Sal Newton. [address], [place], [place], [address] , [place]. tel:[phone] Referring Provider: Aman Huang, [address], [place], [place], [address]. tel:[phone] [facility], [address], [place], [place], [address], [place] tel:[phone] [facility] No Information 5 Sal Newton. [address], [place], [place], [address] , [place]. tel:[phone] OFFICE/OUTPA TIENT VISIT, [facility], [address], [place], [place], [address], [place] tel:[phone] [facility] hypoparathyroid ism (chief complaint)HTN (chief complaint)renal function (chief complaint) Dietary surveillance and counselingHype rtension, UnspecifiedHyp oparathyroidis mRenal Insufficiency, Acute 5 Sal Newton. [address], [place], [place], [address] , [place]. tel:[phone] Referring Provider: Anton Temple [address], [place], [place], [address]. tel:[phone] OFFICE/OUTPA TIENT VISIT, [facility], [address], [place], [place], [address], [place] tel:[phone] [facility] renal function (chief complaint)HLP (chief complaint)parat hyroid (chief complaint)HTN (chief complaint) Dietary surveillance and counselingHype rtension, UnspecifiedHyp oparathyroidis mOsteoarthriti s, GeneralizedOth er and unspecified hyperlipidemia [address] Sal Newton. [address], [place], [place], [address] , [place]. [phone] Referring Provider: Aman Huang, [address], [place], [place], [address]. tel:[phone] PREV VISIT, NEW, AGE 40-64 [facility], [address], [place], [place], [address], [place] tel:[phone] [facility] Physical (chief complaint) Dietary surveillance and counselingRout ine Medical ExamHypertensi on, UnspecifiedOst eoarthritis, GeneralizedOth er genital herpesRoutine Medical Exam [address] Sal Newton. [address], [place], [place], [address] , [place]. tel:[phone] Family History Family Member Type Diagnosis Age At Onset Father Problem (finding) Hypertension Mother Problem (finding) RA, lupus Father Problem (finding) CHF Father Problem (finding) Diabetes mellitus Mother Problem (finding) Hypertension Payers Payer name Insurance type Covered democrat ID Authoriza tion(s) No Information Social History Type Description Quantity Date Captured Comments Alcohol Use Details No Caffeine Use Details Unknown Tobacco Use Status Never smoked tobacco 2014 Smoking Status Never smoker Sex Female Vital Signs Date / Time: Height Weight BMI Pulse Rate Blood Pressure Temperature Respiratory Rate Body Surface Area Head Circumference BMI percentile Pulse Ox Inhaled Ox 3:07 PM 162.56 cm 180.00 lbs 30.9 0 kg/m eter (2) 71 /min 133/78 mm[Hg] 96.5 F 20 /min Chief Complaint And Reason For Visit From encounter dated '05/21/2015 14:00'. cataract (chief complaint). Description: Pt recently went to optomotrist and was told she has cataract but not sure which eye Pt denies any eye pain or any vision problem. Pt denies any blurred vision. Pt denies any eye pain. Pt states that sometimes when she drives at night, she notices a glow around visual field when she sees the light Plan Of Treatment Date Type Action Status Goal Tdap. Due on due Goal Influenza vaccine. Due on due Goal Pap/HPV testing. Due on due Goal FOBT. Due on due Goal Colonoscopy. Due on 015 due Goal Depression screening. Due on due Goal Mammogram. Due on 5 due Goal Td vaccine. Due on 15 due Goal Zoster vaccine. Due on due Goal Sigmoidoscopy. Due on due Goal Colonoscopy. Due on 015 due Goal Mammogram. Due on 5 due Goal Depression screening. Due on due Goal FOBT. Due on due Goal Influenza vaccine. Due on due Goal Pap/HPV testing. Due on due Goal Sigmoidoscopy. Due on due Goal Td vaccine. Due on 15 due Goal Tdap. Due on due Goal Zoster vaccine. Due on due Goal Special diet education compl eted Goal Colonoscopy. Due on 014 due Goal Mammogram. Due on 4 due Referral Ordered: Ophthalmology (related to Cataract) ordered Referral Ordered: Referrals: Ophthalmology. Evaluate and treat ordered Referral Ordered: Surgery (related to Hemorrhoid) ordered Referral Ordered: Gastroenterology (related to Colon polyp) ordered Referral Ordered: Referrals: Surgery ordered Referral Ordered: Referrals: Gastroenterology ordered Referral Ordered: Endocrinology (related to Hypoparathyroidism) ordered Referral Ordered: NUC MED PARATHYROID SCAN ordered Referral Ordered: DXA BONE DENSITY, AXIAL ordered Referral Ordered: Referral: Endocrinology. ordered History Of Present Illness Encounter Date Complaint History Of Prese nt Illness cataract Pt recently went to optomotrist and was told she has cataract but not sure which eye Pt denies any eye pain or any vision problem. Pt denies any blurred vision. Pt denies any eye pain. Pt states that sometimes when she drives at night, she notices a glow around visual field when she sees the light scar tissue Pt states that s he has a skin tag hanging anus area for years. Pt was offererd to get it removed but she did not do it in the past. Pt denies any bleeding or pain foot itching Pt c/o itchy sanjuanita ntar surface both feet for a while. Pt denies any skin peel. colonosocpy Pt had ? colonos ocpy 2008. Pt was told the report ok except for polyp. Pt denies any rectal bleeding. Pt denies any weight loss HTN Pt has HTN. Pt d enies any chest pain or headache. Her BP is stable Instructions Date Instruction Additional Infor mation Prescribed activity/ exercise education Related to Dietary surveillance and counseling Special diet education Related t o Dietary surveillance and counseling Physical activity counseling Rel ated to Dietary surveillance counseling Decrease caloric intake Related to Dietary surveillance counseling Decrease caloric intake Related to Dietary surveillance counseling Dietary counseling Related to Di etary surveillance counseling Decrease caloric intake Related to Dietary surveillance counseling Dietary counseling Related to Di etary surveillance counseling Assessments Type Assessment Date assessment Cataract Mental Status Date Cognitive Assessment Orientation - [place] ed to time, place, person, situation.
--- OUTSIDE RECORDS SUMMARY | 2025-01-05 14:14 | XMS_ITS | Clinical Summary ---
Author Organization [facility] Address [address] [place] [address] Care Team Providers Care Renal Medicine Specialist Name Role Phone Yusra Mathews MD Primary Care Provider [phone] Social History Tobacco Use Types Packs/Day Years [...] 2015 COVID-19 Vaccine (2023-2 5 season) 2024 RSV Immunization or 60+ Years (1 - 1-dose 75+ series) 2025 Pneumococcal Vaccine: 50+ Years Completed 08/18/2016, 10/12/2015 Meningococcal B Vaccine Aged Out No l onger eligible based on patient's age to complete this topic Meningococcal Vaccine Aged Out No lucy mary eligible based on patient's age to complete this topic RSV Immunizations Under 20 Months Aged Out No longer eligible b ased on patient's age to complete this topic Insurance [facility] Care Teams Renal Medicine Specialist Relationship Specialty Start Date End Date Yusra Mathews MD [address] [place] [address] [place] [address] PCP - General FAMILY PRACTICE 06/30/18
--- OUTSIDE RECORDS SUMMARY | 2025-01-05 14:15 | XMS_ITS | Patient Health Record ---
Author Organization [facility] Address [address] [place], [place] [id number] Care Team Providers Care Cardiopulmonary Technologist Name Role Phone Santiagomary Yusra Unavailable Unavailable [...] Insured Coverage Start Date Coverage End Date [facility] [address] [address] [place] [id number] NORA BARTH Self - patient is the insured Medical (General) History Medical History History ICD Code neuropathy Arthritis thyroid cancer
--- OUTSIDE RECORDS SUMMARY | 2025-01-05 14:15 | XMS_ITS | CONTINUITY OF CARE DOCUMENT ---
Author Name emperatriz awan Address Unknown Organization [facility] Address [address] [facility] [address] [place] [address] Phone [phone] Care Team Providers Care Client Service Executive Name Role Phone Marciano Perry MD Unavailable FLORESITA COHEN MD Unavailable FLORESITA COHEN MD Unavailable PROBLEMS Condition Status Date Provider Notes Family [...] In-person encounter Office Visit Marciano Perry MD [facility] - In-person encounter Office Visit Marciano Perry MD [facility] Family History of Hypertension:Sleep apnea, mild on home sleep 10/09 - In-person encounter Office Visit Marciano Perry MD [facility] Family History of Hypertension:Varico se veinsSleep apnea, mild on home sleep 10/09 VITAL SIGNS Date Observation Value Provider Body Mass Index (Ratio) 29.69 kg/m2 Paulie Perry MD weight E&M 173 [lb_av] Jannie [...] [in_i] Lynette weight E&M 174 [lb_av] Lynette [place] ALLERGIES No Known Drug Allergies HISTORY OF [...] one tablet by mouthonce daily Lynette [place] CALCIUM + D active take 2 tablet [...] Payer name Policy type / Coverage type Holder red republican ID AARP MEDICARE ADVANTAGE ([facility] COMPLETE PPO) Other [id number] ADVANCE DIRECTIVES Name Date DISCUSSED - NO [...]
--- OUTSIDE RECORDS SUMMARY | 2025-01-05 14:15 | XMS_ITS ---
Author Organization [facility] Address [address] [place], [place] [id number] Care Team Providers Care Grand Jury Deputy Sheriff Name Role Phone SantiagomaryMenaYusra Unavailable Unavailable SILVIO RODRIGUEZ Unavailable [phone] REASON FOR VISIT bunion pain follow up Encounters Encounter Location Date Provider Diagnosis [facility] [place] [address] [place], [place] [id number] 10/02/2023 SILVIO RODRIGUEZ Plan Of Treatment No Information Progress Notes * LARY NORADOB:1950 (74 yo F)Acc No.[id number]:10/02/2023 Patient: NORA CLAROS Provider: Favio Rodriguez DPM :1950 A ge:73 Y S ex:Female Date:10/02/2023 Address:[address] [place] [address] Subjective: * Chief Complaints: * 1 . Bunion pain follow up. * Medical History: Objective: * Vitals: Assessment: Plan: * Treatment: * Billing Information: * Visit Code: * Procedure Codes: * Electronic signature of SILVIO RODRIGUEZ DPM on 01/05/2025 at 02:15 PM CDT Sign off status: Pending * Provider: Favio Rodriguez DPM Date: 10/02/2023 Generated for Vika macias/Gonzales/eTransmitting on: 0 01/05/2025 02:15 PM CDT
--- OUTSIDE RECORDS SUMMARY | 2025-01-05 14:15 | XMS_ITS | Data Portability ---
Author Organization [place] - [employer], Main Office Address [address] [place] [address] Care Team Providers Care Us Marketing Director Name Role Phone FLORESITA MATHEWS Primary Care Provider Assessment No assessment recorded. Plan of Treatment Reminders Order Date Submit Date Provider Last Modified By Organization Details Last Modified Time Details Appointments None recorded. Lab microalbumi n, urine 2023 024 [facility] (Lab), [address] [place], [address], 4 23:00:01 CBC w/ auto diff 2022 024 ALEXANDER Not available 4 06:21:32 glycohemogl obin, total, blood 2022 024 [email or web address] Not available 4 09:12:12 BMP, serum or plasma 2022 024 ALEXANDER Not available 4 06:21:34 lipid panel, serum 2022 024 ALEXANDER Not available 4 06:21:35 vitamin D, 25-hydroxy, total, serum 2022 023 [email or web address] Not available 4 08:46:47 vitamin B12, serum 2022 024 ALEXANDER Not available 4 06:21:38 folate, serum 2022 024 ALEXANDER Not available 4 06:21:36 Referral neurologist referral - Please call patient to schedule an appointment . Thank you. 2024 025 [facility], [address] , [address], [place], [address], 5 15:37:31 Procedures None recorded. Surgeries None recorded. Imaging CT, cervical spine, w/ contrast - Please call patient to schedule. [address], [address], [place], [address], 5 16:25:14 XR, chest, 2 view 2023 024 [facility], [address], [place], [address], 4 11:42:24 MAMMO, screening, digital, bilateral - *Please call pt to schedule* [address] [facility], [address], [address], [place], [address], 4 09:11:47 DEXA - *Please call pt to schedule* [address] (Imaging), [address], [place], [address], 4 09:11:47 Medication Orders ofloxacin 0.3 % ear drops 2023 024 [id number], [address], [place], [place], [id number], 4 10:59:04 hydroxyzine HCl 25 mg tablet 2023 024 [facility] #[id number], [address], [place], [place], [id number], 4 10:58:56 albuterol sulfate HFA 90 mcg/actuati on aerosol inhaler 2023 024 [facility] #[id number], [address] [facility], [place], [place], [id number], 10:57:55 Patient TargetsNo targets recorded. Patient Instructions Encounter Date Encounter Id Patient Instructions Last Modified By Organization Details Last Modified Time 09/07/2023 [id number] [facility] health assessment questionnaire* ALEXANDER Not available 09/07/2023 14:48:01 Personalized a lt Plan and Screening Recommendations Advance Directives [...] Abnormal Flag Note LastModifiedBy Organization Detail LastModifiedTime 10/09/19 23 10/09/2022 AMBIG ABBRE V HFP7 DEFAU LT ambig abbrev hfp7 default commen t A hand- writt en panel /prof ile [...] ciate your busin ess. Not Available [facility] ([facility]) [address], [place], [address], 10/10/2022 08:19:56 10/09/19 23 10/10/2022 VITAM IN B12 vitamin B12 557 pg/mL 232-12 45 Not Available [facility] ([facility]) [address] [place], [address], 10/10/2022 08:19:55 10/09/19 23 10/10/2022 VITAM IN [...] um and D. Jordyn benitez [place]: [facility] . 2. Parker villareal MF, Dillan philippe [place], Shanae off-F vidya i BARKER, et al. Evalu ation , treat ment, and preve ntion of vitam in D defic iency : an Endoc rine Socie ty clini dick pract ice guide line. JCEM. 2010; 96(7) :1911 -30. Not Available [facility] ([facility]) [address], [place], [address], 10/10/2022 08:19:54 10/09/19 23 10/10/2022 HEPAT IC FUNCT ION PANEL (7) protein, total 7.6 g/dL 6.0-8. 5 Not Available [facility] ([facility]) [address] [place], [address], 10/10/2022 08:19:53 10/09/19 23 10/10/2022 HEPAT IC FUNCT ION PANEL (7) albumin 4.3 g/dL 3.7-4. 7 Not Available [facility] ([facility]) [address], [place], [address], 10/10/2022 08:19:53 10/09/19 23 10/10/2022 HEPAT IC FUNCT ION PANEL (7) bilirubin, total 0.4 mg/dL 0.0-1. 2 Not Available [facility] ([facility]) [address] [place], [address], 10/10/2022 08:19:53 10/09/19 23 10/10/2022 HEPAT IC FUNCT ION PANEL (7) bilirubin, direct 0.13 mg/dL 0.00-0 .40 Not Available [facility] ([facility]) [address] [place], [address], 10/10/2022 08:19:53 10/09/19 23 10/10/2022 HEPAT IC FUNCT ION PANEL (7) alkaline phosphatase 64 IU/L 44-121 Not Available [facility] ([facility]) [address] [place], [address], 10/10/2022 08:19:53 10/09/19 23 10/10/2022 HEPAT IC FUNCT ION PANEL (7) AST (SGOT) 16 IU/L 0-40 Not Available [facility] ([facility]) [address] [place], [address], 10/10/2022 08:19:53 10/09/19 23 10/10/2022 HEPAT IC FUNCT ION PANEL (7) ALT (SGPT) 10 IU/L 0-32 Not Available [facility] ([facility]) [address] [place], [address], 10/10/2022 08:19:53 10/09/19 23 10/10/2022 LIPID PANEL cholesterol, total 206 mg/dL 100-19 9 above high normal Not Available [facility] ([facility]) [address] [place], [address], 10/10/2022 08:19:53 10/09/19 23 10/10/2022 LIPID PANEL triglyceride s 90 mg/dL 0-149 Not Available [facility] ([facility]) [address] [place], [address], 10/10/2022 08:19:53 10/09/19 23 10/10/2022 LIPID PANEL HDL cholesterol 68 mg/dL >39 Not Available [facility]) [address] [place], [address], 10/10/2022 08:19:53 10/09/19 23 10/10/2022 LIPID PANEL VLDL cholesterol dick 16 mg/dL 5-40 Not Available [facility] ([facility]) [address] [place], [address], 10/10/2022 08:19:53 10/09/19 23 10/10/2022 LIPID PANEL LDL chol calc ([facility]) 122 mg/dL 0-99 above high normal Not Available [facility] ([facility]) [address] [place], [address], 10/10/2022 08:19:53 10/09/19 23 10/10/2022 LIPID PANEL comment: incident response analyst Not Available [facility] ([facility]) [address] [place], [address], 10/10/2022 08:19:53 10/09/19 23 10/10/2022 BASIC METAB OLIC PANEL (8) glucose 81 mg/dL 70-99 Not Available [facility] ([facility]) [address] [place], [address], 10/10/2022 08:19:53 10/09/19 23 10/10/2022 BASIC METAB OLIC PANEL (8) BUN 13 mg/dL 8-27 Not Available [facility] ([facility]) [address] [place], [address], 10/10/2022 08:19:53 10/09/19 23 10/10/2022 BASIC METAB OLIC PANEL (8) creatinine 1.03 mg/dL 0.57-1 .00 above high normal Not Available [facility] ([facility]) [address] [place], [address], 10/10/2022 08:19:53 10/09/19 23 10/10/2022 BASIC METAB OLIC PANEL (8) eGFR 58 mL/mi n/1.7 3 >59 below low normal Not Available [facility] ([facility]) [address] [place], [address], 10/10/2022 08:19:53 10/09/19 23 10/10/2022 BASIC METAB OLIC PANEL (8) BUN/creatini ne ratio 13 12-28 Not Available [facility] ([facility]) [address] [place], [address], 10/10/2022 08:19:53 10/09/19 23 10/10/2022 BASIC METAB OLIC PANEL (8) sodium 144 mmol/ L 134-14 4 Not Available [facility] ([facility]) [address] [place], [address], 10/10/2022 08:19:53 10/09/19 23 10/10/2022 BASIC METAB OLIC PANEL (8) potassium 4.1 mmol/ L 3.5-5. 2 Not Available [facility] ([facility]) [address] [place], [address], 10/10/2022 08:19:53 10/09/19 23 10/10/2022 BASIC METAB OLIC PANEL (8) chloride 103 mmol/ L 96-106 Not Available [facility] ([facility]) [address] [place], [address], 10/10/2022 08:19:53 10/09/19 23 10/10/2022 BASIC METAB OLIC PANEL (8) carbon dioxide, total 28 mmol/ L 20-29 Not Available [facility] ([facility]) [address] [place], [address], 10/10/2022 08:19:53 10/09/19 23 10/10/2022 BASIC METAB OLIC PANEL (8) calcium 8.5 mg/dL 8.7-10 .3 below low normal Not Available [facility] ([facility]) [address] [place], [address], 10/10/2022 08:19:53 10/09/19 23 10/10/2022 CBC/D IFF AMBIG UOUS DEFAU LT WBC 4.7 x10e3 /uL 3.4-10 .8 Not Available [facility] ([facility]) [address] [place], [address], 10/10/2022 08:19:52 10/09/19 23 10/10/2022 CBC/D IFF AMBIG UOUS DEFAU LT RBC 4.42 x10e6 /uL 3.77-5 .28 Not Available [facility] ([facility]) [address], [place], [address], 10/10/2022 08:19:52 10/09/19 23 10/10/2022 CBC/D IFF AMBIG UOUS DEFAU LT hemoglobin 12.6 g/dL 11.1-1 5.9 Not Available [facility] ([facility]) [address], [place], [address], 10/10/2022 08:19:52 10/09/19 23 10/10/2022 CBC/D IFF AMBIG UOUS DEFAU LT hematocrit 39.3 % 34.0-4 6.6 Not Available [facility] ([facility]) [address], [place], [address], 10/10/2022 08:19:52 10/09/19 23 10/10/2022 CBC/D IFF AMBIG UOUS DEFAU LT MCV 89 fL 79-97 Not Available [facility] ([facility]) [address], [place], [address], 10/10/2022 08:19:52 10/09/19 23 10/10/2022 CBC/D IFF AMBIG UOUS DEFAU LT MCH 28.5 pg 26.6-3 3.0 Not Available [facility] ([facility]) [address], [place], [address], 10/10/2022 08:19:52 10/09/19 23 10/10/2022 CBC/D IFF AMBIG UOUS DEFAU LT MCHC 32.1 g/dL 31.5-3 5.7 Not Available [facility] ([facility]) [address], [place], [address], 10/10/2022 08:19:52 10/09/19 23 10/10/2022 CBC/D IFF AMBIG UOUS DEFAU LT RDW 13.4 % 11.7-1 5.4 Not Available [facility] ([facility]) [address], [place], [address], 10/10/2022 08:19:52 10/09/19 23 10/10/2022 CBC/D IFF AMBIG UOUS DEFAU LT platelets 221 x10e3 /uL 150-45 0 Not Available [facility] ([facility]) [address], [place], [address], 10/10/2022 08:19:52 10/09/19 23 10/10/2022 CBC/D IFF AMBIG UOUS DEFAU LT neutrophils 53 % not estab. Not Available [facility] ([facility]) [address], [place], [address], 10/10/2022 08:19:52 10/09/19 23 10/10/2022 CBC/D IFF AMBIG UOUS DEFAU LT lymphs 34 % not estab. Not Available [facility] ([facility]) [address], [place], [address], 10/10/2022 08:19:52 10/09/19 23 10/10/2022 CBC/D IFF AMBIG UOUS DEFAU LT monocytes 7 % not estab. Not Available [facility] ([facility]) [address], [place], [address], 10/10/2022 08:19:52 10/09/19 23 10/10/2022 CBC/D IFF AMBIG UOUS DEFAU LT eos 5 % not estab. Not Available [facility] ([facility]) [address], [place], [address], 10/10/2022 08:19:52 10/09/19 23 10/10/2022 CBC/D IFF AMBIG UOUS DEFAU LT basos 1 % not estab. Not Available [facility] ([facility]) [address], [place], [address], 10/10/2022 08:19:52 10/09/19 23 10/10/2022 CBC/D IFF AMBIG UOUS DEFAU LT immature cells incident response analyst Not Available [facility] ([facility]) [address], [place], [address], 10/10/2022 08:19:52 10/09/19 23 10/10/2022 CBC/D IFF AMBIG UOUS DEFAU LT neutrophils (absolute) 2.5 x10e3 /uL 1.4-7. 0 Not Available [facility] ([facility]) [address] [place], [address], 10/10/2022 08:19:52 10/09/19 23 10/10/2022 CBC/D IFF AMBIG UOUS DEFAU LT lymphs (absolute) 1.6 x10e3 /uL 0.7-3. 1 Not Available [facility] ([facility]) [address] [place], [address], 10/10/2022 08:19:52 10/09/19 23 10/10/2022 CBC/D IFF AMBIG UOUS DEFAU LT monocytes(ab solute) 0.3 x10e3 /uL 0.1-0. 9 Not Available [facility] ([facility]) [address] [place], [address], 10/10/2022 08:19:52 10/09/19 23 10/10/2022 CBC/D IFF AMBIG UOUS DEFAU LT eos (absolute) 0.2 x10e3 /uL 0.0-0. 4 Not Available [facility] ([facility]) [address] [place], [address], 10/10/2022 08:19:52 10/09/19 23 10/10/2022 CBC/D IFF AMBIG UOUS DEFAU LT baso (absolute) 0.0 x10e3 /uL 0.0-0. 2 Not Available [facility] ([facility]) [address], [place], [address], 10/10/2022 08:19:52 10/09/19 23 10/10/2022 CBC/D IFF AMBIG UOUS DEFAU LT immature granulocytes 0 % not estab. Not Available [facility] ([facility]) [address], [place], [address], 10/10/2022 08:19:52 10/09/19 23 10/10/2022 CBC/D IFF AMBIG UOUS DEFAU LT immature grans (abs) 0.0 x10e3 /uL 0.0-0. 1 Not Available [facility] ([facility]) [address], [place], [address], 10/10/2022 08:19:52 10/09/19 23 10/10/2022 CBC/D IFF AMBIG UOUS DEFAU LT NRBC incident response analyst Not Available [facility] ([facility]) [address], [place], [address], 10/10/2022 08:19:52 10/09/19 23 10/10/2022 CBC/D IFF AMBIG UOUS DEFAU LT hematology comments: incident response analyst A hand- writt en panel /prof arnulfo was recei senait from your offic e. In accor dance with the [facility] Amballen uous Test Code Polic y dated March 2003, we have assig natan CBC with Vasiliy santos al/Pl murphy t, Test Code #[address]. If this is not the testi ng you wishe d to recei ve on this speci men, pleas e conta ct the [facility] Demetria t Inqui ry/ Techn ical Servi tiarra Depar tment to kingsley fy the test order . We appre ciate your busin ess. Not Available [facility] ([facility]) [address], [place], [address], 10/10/2022 08:19:52 10/30/19 24 10/30/2023 CBC WITH DIFFE RENTI AL/PL ATELE T WBC 4.7 x10e3 /uL 3.4-10 .8 Not Available [facility] ([facility]) [address], [place], [address], 10/31/2023 06:21:32 10/30/19 24 10/30/2023 CBC WITH DIFFE RENTI AL/PL ATELE T RBC 4.36 x10e6 /uL 3.77-5 .28 Not Available [facility] ([facility]) [address], [place], [address], 10/31/2023 06:21:32 10/30/19 24 10/30/2023 CBC WITH DIFFE RENTI AL/PL ATELE T hemoglobin 12.9 g/dL 11.1-1 5.9 Not Available [facility] ([facility]) [address] [place], [address], 10/31/2023 06:21:32 10/30/19 24 10/30/2023 CBC WITH DIFFE RENTI AL/PL ATELE T hematocrit 39.1 % 34.0-4 6.6 Not Available [facility] ([facility]) [address] [place], [address], 10/31/2023 06:21:32 10/30/19 24 10/30/2023 CBC WITH DIFFE RENTI AL/PL ATELE T MCV 90 fL 79-97 Not Available [facility] ([facility]) [address] [place], [address], 10/31/2023 06:21:32 10/30/19 24 10/30/2023 CBC WITH DIFFE RENTI AL/PL ATELE T MCH 29.6 pg 26.6-3 3.0 Not Available [facility] ([facility]) [address] [place], [address], 10/31/2023 06:21:32 10/30/19 24 10/30/2023 CBC WITH DIFFE RENTI AL/PL ATELE T MCHC 33.0 g/dL 31.5-3 5.7 Not Available [facility] ([facility]) [address], [place], [address], 10/31/2023 06:21:32 10/30/19 24 10/30/2023 CBC WITH DIFFE RENTI AL/PL ATELE T RDW 13.1 % 11.7-1 5.4 Not Available [facility] ([facility]) [address], [place], [address], 10/31/2023 06:21:32 10/30/19 24 10/30/2023 CBC WITH DIFFE RENTI AL/PL ATELE T platelets 186 x10e3 /uL 150-45 0 Not Available [facility] ([facility]) [address], [place], [address], 10/31/2023 06:21:32 10/30/19 24 10/30/2023 CBC WITH DIFFE RENTI AL/PL ATELE T neutrophils 55 % not estab. Not Available [facility] ([facility]) [address], [place], [address], 10/31/2023 06:21:32 10/30/19 24 10/30/2023 CBC WITH DIFFE RENTI AL/PL ATELE T lymphs 32 % not estab. Not Available [facility] ([facility]) [address], [place], [address], 10/31/2023 06:21:32 10/30/19 24 10/30/2023 CBC WITH DIFFE RENTI AL/PL ATELE T monocytes 7 % not estab. Not Available [facility] ([facility]) [address], [place], [address], 10/31/2023 06:21:32 10/30/19 24 10/30/2023 CBC WITH DIFFE RENTI AL/PL ATELE T eos 5 % not estab. Not Available [facility] ([facility]) [address] [place], [address], 10/31/2023 06:21:32 10/30/19 24 10/30/2023 CBC WITH DIFFE RENTI AL/PL ATELE T basos 1 % not estab. Not Available [facility] ([facility]) [address], [place], [address], 10/31/2023 06:21:32 10/30/19 24 10/30/2023 CBC WITH DIFFE RENTI AL/PL ATELE T immature cells AD COPY WRITER Not Available [facility] ([facility]) [address] [place], [address], 10/31/2023 06:21:32 10/30/19 24 10/30/2023 CBC WITH DIFFE RENTI AL/PL ATELE T neutrophils (absolute) 2.7 x10e3 /uL 1.4-7. 0 Not Available [facility] ([facility]) [address] [place], [address], 10/31/2023 06:21:32 10/30/19 24 10/30/2023 CBC WITH DIFFE RENTI AL/PL ATELE T lymphs (absolute) 1.5 x10e3 /uL 0.7-3. 1 Not Available [facility] ([facility]) [address] [place], [address], 10/31/2023 06:21:32 10/30/19 24 10/30/2023 CBC WITH DIFFE RENTI AL/PL ATELE T monocytes(ab solute) 0.3 x10e3 /uL 0.1-0. 9 Not Available [facility] ([facility]) [address] [place], [address], 10/31/2023 06:21:32 10/30/19 24 10/30/2023 CBC WITH DIFFE RENTI AL/PL ATELE T eos (absolute) 0.2 x10e3 /uL 0.0-0. 4 Not Available [facility] ([facility]) [address], [place], [address], 10/31/2023 06:21:32 10/30/19 24 10/30/2023 CBC WITH DIFFE RENTI AL/PL ATELE T baso (absolute) 0.0 x10e3 /uL 0.0-0. 2 Not Available [facility] ([facility]) [address], [place], [address], 10/31/2023 06:21:32 10/30/19 24 10/30/2023 CBC WITH DIFFE RENTI AL/PL ATELE T immature granulocytes 0 % not estab. Not Available [facility] ([facility]) [address], [place], [address], 10/31/2023 06:21:32 10/30/19 24 10/30/2023 CBC WITH DIFFE RENTI AL/PL ATELE T immature grans (abs) 0.0 x10e3 /uL 0.0-0. 1 Not Available [facility] ([facility]) [address], [place], [address], 10/31/2023 06:21:32 10/30/19 24 10/30/2023 CBC WITH DIFFE RENTI AL/PL ATELE T NRBC AD COPY WRITER Not Available [facility] ([facility]) [address], [place], [address], 10/31/2023 06:21:32 10/30/19 24 10/30/2023 CBC WITH DIFFE RENTI AL/PL ATELE T hematology comments: AD COPY WRITER Not Available [facility] ([facility]) [address], [place], [address], 10/31/2023 06:21:32 10/30/19 24 10/31/2023 BASIC METAB OLIC PANEL (8) glucose 86 mg/dL 70-99 Not Available [facility] ([facility]) [address] [place], [address], 10/31/2023 06:21:34 10/30/19 24 10/31/2023 BASIC METAB OLIC PANEL (8) BUN 17 mg/dL 8-27 Not Available [facility] ([facility]) [address] [place], [address], 10/31/2023 06:21:34 10/30/19 24 10/31/2023 BASIC METAB OLIC PANEL (8) creatinine 1.02 mg/dL 0.57-1 .00 above high normal Not Available [facility] ([facility]) [address] [place], [address], 10/31/2023 06:21:34 10/30/19 24 10/31/2023 BASIC METAB OLIC PANEL (8) eGFR 58 mL/mi n/1.7 3 >59 below low normal Not Available [facility] ([facility]) [address] [place], [address], 10/31/2023 06:21:34 10/30/19 24 10/31/2023 BASIC METAB OLIC PANEL (8) BUN/creatini ne ratio 17 12-28 Not Available [facility] ([facility]) [address] [place], [address], 10/31/2023 06:21:34 10/30/19 24 10/31/2023 BASIC METAB OLIC PANEL (8) sodium 144 mmol/ L 134-14 4 Not Available [facility] ([facility]) [address] [place], [address], 10/31/2023 06:21:34 10/30/19 24 10/31/2023 BASIC METAB OLIC PANEL (8) potassium 4.1 mmol/ L 3.5-5. 2 Not Available [facility] ([facility]) [address] [place], [address], 10/31/2023 06:21:34 10/30/19 24 10/31/2023 BASIC METAB OLIC PANEL (8) chloride 104 mmol/ L 96-106 Not Available [facility] ([facility]) [address] [place], [address], 10/31/2023 06:21:34 10/30/19 24 10/31/2023 BASIC METAB OLIC PANEL (8) carbon dioxide, total 25 mmol/ L 20-29 Not Available [facility] ([facility]) [address] [place], [address], 10/31/2023 06:21:34 10/30/19 24 10/31/2023 BASIC METAB OLIC PANEL (8) calcium 8.5 mg/dL 8.7-10 .3 below low normal Not Available [facility] ([facility]) [address] [place], [address], 10/31/2023 06:21:34 10/30/19 24 10/31/2023 LIPID PANEL cholesterol, total 194 mg/dL 100-19 9 Not Available [facility] ([facility]) [address] [place], [address], 10/31/2023 06:21:35 10/30/19 24 10/31/2023 LIPID PANEL triglyceride s 71 mg/dL 0-149 Not Available [facility] ([facility] [address] [place], [address], 10/31/2023 06:21:35 10/30/19 24 10/31/2023 LIPID PANEL HDL cholesterol 66 mg/dL >39 Not Available [facility] ([facility] [address] [place], [address], 10/31/2023 06:21:35 10/30/19 24 10/31/2023 LIPID PANEL VLDL cholesterol dick 13 mg/dL 5-40 Not Available [facility] ([facility]) [address] [place], [address], 10/31/2023 06:21:35 10/30/19 24 10/31/2023 LIPID PANEL LDL chol calc ([facility]) 115 mg/dL 0-99 above high normal Not Available [facility] ([facility]) [address], [place], [address], 10/31/2023 06:21:35 10/30/19 24 10/31/2023 LIPID PANEL comment: AD COPY WRITER Not Available [facility] ([facility]) [address], [place], [address], 10/31/2023 06:21:35 10/30/19 24 10/31/2023 HEMOG LOBIN A1C hemoglobin A1C 5.6 % 4.8-5. 6 Predi abete s: 5.7 - 6.4 Diabe rivka: >6.4 Glyce beni contr ol for adult s with diabe rivka: <7.0 Not Available [facility] ([facility]) [address], [place], [address], 10/31/2023 06:21:36 10/30/19 24 10/31/2023 FOLAT E (FOLI C ACID) , SERUM folate (folic acid), serum >20.0 NG/mL >3.0 A serum folat e jhonatan ntrat ion of less than 3.1 ng/mL is consi dered to repre sent clini dick defic iency . Not Available [facility] ([facility]) [address], [place], [address], 10/31/2023 06:21:36 10/30/19 24 10/31/2023 VITAM IN [...] um and D. Jordyn benitez DC: [facility] [employer] . 2. Parker villareal MF, Binestela ey [place], Shanae off-F errar i BARKER, et al. Evalu ation , treat ment, and preve ntion of vitam in D defic iency : an Endoc rine Socie ty clini dick pract ice guide line. JCEM. 2010; 96(7) :1911 -30. Not Available [facility] ([facility]) [address], [place], [address], 10/31/2023 06:21:37 10/30/19 24 10/31/2023 VITAM IN B12 vitamin B12 541 pg/mL 232-12 45 Not Available [facility] ([facility]) [address], [place], [address], 10/31/2023 06:21:38 08/26/20 22 08/26/2022 MAMMO , scree kaia, bilat eral No observ ation record ed. [id number], [place], [address], 11/19/2022 05:01:48 01/18/20 24 01/18/2024 MAMMO , scree kaia, digit al, bilat eral No observ ation record ed. [email or web address] [address], [place], [address], 02/06/2024 11:51:16 06/01/20 24 05/31/2024 XR, chest , 2 view No observ ation record ed. [place] [address], [place], [address], 06/01/2024 12:10:27 06/23/20 24 06/23/2024 XR, cervi dick spine No observ ation record ed. [facility] [address] [facility] [address], [place], [address], 06/24/2024 09:04:42 Result Notes None recorded. 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 Active 2022 Florseita Mathews MD [address], [address], [place], [address] , [employer] 3 14:27:24 Vitamin D deficiency 51321019 Active 2022 Floresita Mathews MD [address], [address], [place], [address] , [employer] 3 14:29:06 Prediabetes 712303851 Active 2022 Floresita Mathews MD [address], [address], [place], [address] , [employer] 3 14:31:29 Primary insomnia 4822609 Active 2023 AMADO Patterson [address], [place], [address] , [employer] Network 4 12:00:50 Otitis externa 7565318 Active 2023 AMADO Patterson [address], [place], [address] , [employer] 4 12:06:53 Neck pain 13011820 Active 2023 AMADO Patterson [address], [place], [address] , [employer] [facility] 4 12:08:43 Thoracic back pain 123454756 Active 2023 AMADO Patterson [address], [address], [place], [address] , [facility] 4 12:08:51 Low back pain 901648790 Active 2023 AMADO Patterson [address], [address], [place], [address] , [facility] 4 12:09:31 Degeneration of cervical intervertebra l disc 28204125 Active 2023 AMADO Patterson [address], [address], [place], [address] , [facility] 4 10:19:02 Neuropathy 099833633 Active 2024 AMADO Patterson [address], [place], [address] , [facility] 5 14:52:46 Disorder of thyroid gland 21194950 Active Not Available [facility] 3 04:49:00 Cataract 709720231 Active Not Available [facility] 3 04:49:00 Dyspnea 630861008 Active 2021 Not Available [facility] 3 04:49:00 Edema 351673099 Active Not Available [facility] 3 04:49:00 Eruption 745097304 Active Not Available [facility] 3 04:49:00 Genital herpes simplex 59711332 Active Not Available [facility] 3 04:49:00 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 Not Available [facility] 3 04:49:00 Hypertensive disorder 06041352 Active Not Available [facility] 3 04:49:00 Osteoarthriti s 615322226 Active knee Not Available [facility] 3 04:49:00 Clinical finding Active Not Available [facility] 3 04:49:00 Obesity 744763850 Active Not Available [facility] 3 04:49:00 Verruca plantaris 95674650 Active Not Available [facility] 3 04:49:00 Chronic cough 15743442 Active 2021 Not Available [facility] 3 04:49:01 Marijuana user 816627749 Active 2021 Not Available [facility] 3 04:49:01 Posterior rhinorrhea 54256170 Active 2021 Not Available [facility] 3 04:49:01 Obstructive sleep apnea syndrome 84671794 Active 2018 Not Available [facility] 3 04:49:01 Pain in limb 41043740 Active Not Available [facility] 3 04:49:01 Notes:Some problems listed i n Document: #[id number] could not be added to this patient's chart. Please review this document and add these problems to the patient's chart manually as needed. Problem Notes None recorded. Procedures Surgical History Date Name Laterality Status Provider Name and Address Organization Details Recorded Time 01/20/20 24 Most Recent Mammogram completed Lisseth Chen RN [facility] [employer] [facility] 03/07/2024 11:33:45 09/07/20 23 Medicare Wellness CPT Code, subsequent completed Ramez Chandler RN [facility] [employer] [facility] 09/07/2023 13:58:23 09/21/19 05 shoulder manipulation completed Lisseth Chen RN [facility] [employer] [facility] 03/07/2024 11:25:57 09/21/18 98 Hysterectomy completed ALFONSO Velasquez [facility] [employer] [facility] 03/07/2024 11:25:28 01/19/19 90 delivery completed Lisseth Chen RN [facility] [employer] [facility] 03/07/2024 11:25:16 Imaging Results Imaging Date Name Status LastModified by Organiz [facility] Details LastModified Time 08/26/2022 MAMMO, screening, bilateral completed [id number] [address] [place] [address] [address], [address], 11/19/2022 05:01:48 01/18/2024 MAMMO, screening, digital, bilateral [facility] [address] [facility] [address], [place], [address], 02/06/2024 11:51:16 05/31/2024 XR, chest, 2 view completed [address] [facility] [address], [place], [address], 06/01/2024 12:10:27 06/23/2024 XR, cervical spine completed [address], [place], [address], 06/24/2024 09:04:42 Procedure Notes None recorded. Medical Equipment None Reported. Allergies Allergen ID Allergen Name Allergen Category Reaction Reaction Severity Criticality Documentation Date Start Date Code Code System Note Provider Name and Address Organization Details Recorded Time 64807 lactose food,medi cation Not available Not available Not available 05/31/2024 6211 RxNorm Lisseth Chen RN null, [place] [facility] [employer] 4 10:57:44 7508 lactase medicatio n Not available Not available Not available 11/19/2022 11039 RxNorm Not Available [facility] 3 05:01:16 Medications Name Sig Start Date [...] 1000 tablets every day by oral route. 05/31 completed Not Available Not Available Not [...] 1 TABLET BY MOUTH DAILY 03/07 completed 2 tab daily MK 2 Not Available Not [...] bromide 42 mcg (0.06 %) nasal spray [place] 2 sprays 3 times a day by [...] Not Available No t Available Fluzone High-Dose 6129-6942 (PF) 180 mcg/0.5 mL intramuscu lar syringe [...] % 100 % 74 /min 97.7 [degF] 54198.1 1 g 124 mm[Hg] 70 mm[Hg] Not Available [employer] 3 04:42:26 Date Recorded Body weight Body temperature Heart rate Oxygen saturation Oxygen saturation in Arterial blood by Pulse oximetry Systolic blood pressure Diastolic blood pressure Provider Name and Address Organization Details Last Updated DateTime 3 49091.9 6 g 97.3 [degF] 75 /min 98 % 98 % 166 mm[Hg] 80 mm[Hg] Ramez Chandler RN [facility] [employer] 3 14:01:20 Date Recorded Body weight Body mass index (BMI) Body height Pain severity - 0-10 verbal numeric rating [Score] - Reported Body temperature Heart rate Respiratory rate Oxygen saturation Oxygen saturation in Arterial blood by Pulse oximetry Systolic blood pressure Diastolic blood pressure Provider Name and Address Organization Details Last Updated DateTime 4 28494.2 9 g 27.1 kg/m2 162.56 cm 0 97.2 [degF] 75 /min 20 /min 0 % 0 % 136 mm[Hg] 70 mm[Hg] Lisseth Chen RN [facility] [employer] [facility] 4 11:29:33 Date Recorded Body height Body mass index (BMI) Body weight Pain severity - 0-10 verbal numeric rating [Score] - Reported Body temperature Heart rate Respiratory rate Oxygen saturation Oxygen saturation in Arterial blood by Pulse oximetry Systolic blood pressure Diastolic blood pressure Provider Name and Address Organization Details Last Updated DateTime 4 162.56 cm 27.4 kg/m2 73901.6 4 g 0 97.1 [degF] 71 /min 20 /min 98 % 98 % 142 mm[Hg] 88 mm[Hg] Lisseth Chen RN [facility] [employer] 4 11:03:42 Date Recorded Body height Body mass index (BMI) Body weight Oxygen saturation Oxygen saturation in Arterial blood by Pulse oximetry Body temperature Respiratory rate Heart rate Pain severity - 0-10 verbal numeric rating [Score] - Reported Systolic blood pressure Diastolic blood pressure Provider Name and Address Organization Details Last Updated DateTime 5 162.56 cm 28 kg/m2 20269.6 1 g 99 % 99 % 97.7 [degF] 20 /min 68 /min 0 120 mm[Hg] 72 mm[Hg] Lisseth Chen RN [place] [facility] [employer] 5 14:35:17 Social History Question Answer Notes LastModified by Organizat ion Details LastModified Time Tobacco Smoking Status Never Smoker Not Available [employer] 11/19/2022 04:11:01 Do You Have An Advance Directive? Yes [id number] Information not available 11/19/2022 What Is Your Level Of Alcohol Consumption? None Information not available 10/20/2024 Are You Blind Or Do You Have Difficulty Seeing? No MIGRATION.75666 12660 Information not available 11/19/2022 Is Blood Transfusion Acceptable In An Emergency? Yes Information not available 03/07/2024 What Is Your Level Of Caffeine Consumption? Moderate MIGRATION.31045 70069 Information not available 11/19/2022 How Much Tobacco Do You Chew? None MIGRATION.24637 78020 Information not available 11/19/2022 What Is Your [...] Do You Have Serious Difficulty Hearing? No MIGRATION.20585 85743 Information not available 11/19/2022 What Type Of Diet Are You Following? REGULAR MIGRATION.60400 56825 Information not available 11/19/2022 Which Illicit Or Recreational Drugs Have You Used? No MIGRATION.16107 34281 Information not available 11/19/2022 Do You Or Have You Ever Used E-cigarettes Or Vape? Never Used Electronic Cigarettes MIGRATION.54479 49739 Information not available 11/19/2022 What Is Your Occupation? Retired MIGRATION.84229 25226 Information not available 11/19/2022 How Many Days [...] not available 03/07/2024 Where Do You Live? [facility] Information not available 03/07/2024 Advance [...] Do You Have A Medical Power Of Massage Operator? Yes Information not available 03/07/2024 What Was The Date Of Your Most Recent Tobacco Screening? 01/21/2022 MIGRATION.24826 33792 Information not available 11/19/2022 How Many Children [...] Used Smokeless Tobacco? Never Used Smokeless Tobacco MIGRATION.40985 92713 Information not available 11/19/2022 Are There Any Smokers In Your House? Yes Information not available 03/07/2024 Do You Participate In Social Media? Yes Information not available 03/07/2024 What Types Of Sporting Activities Do You Participate In? Stretching Information not available 03/07/2024 Do You Feel Stressed (tense, Restless, Nervous, Or Anxious, Or Unable To Sleep At Night)? [id number] Information not available 03/07/2024 Do You Use Sunscreen Routinely? Yes MIGRATION.64869 54810 Information not available 11/19/2022 Have You Recently Traveled Abroad? No Information not available 03/07/2024 Sex: Unknown Functional Status Question Answer Note LastModified by Organizat ion Details LastModified Time Do you have difficulty walking or climbing stairs? No [id number].[id number] 026 Information not available 11/19/2022 Do you have transportation difficulties? No Information not available 03/07/2024 Are you able to walk? [employer] Information not available 03/07/2024 Do you have difficulty doing errands alone? No MIGRATION.[id number] 026 Information not available 11/19/2022 Are you able to care for yourself? Yes Information n ot available 03/07/2024 Do you have difficulty dressing or bathing? No MIGRATION.[id number] 026 Information not available 11/19/2022 What is your exercise level? Moderate MIGRATION.0551615 026 Information not available 11/19/2022 Mental Status Question Answer Note LastModified by Organizat ion Details LastModified Time Do you have difficulty concentrating, remembering or making decisions? No MIGRATION.[id number] 6 Information not available 11/19/2022 Family History [...] high-dose, quadrivalent, PF 3 completed Jannie Papantonatos Palette [facility] [employer] [facility] 03/07/2024 11:30:07 Influenza, high-dose, quadrivalent, PF 2 completed Jannie Papantonatos Palette [facility] [employer] [facility] 03/07/2024 11:30:07 COVID-19, mRNA, LNP-S, PF, 100 mcg/0.5mL dose or 50 mcg/0.25mL dose 1 completed Jannie Papantonatos [place] [facility] [employer] [facility] 03/07/2024 11:30:07 COVID-19, mRNA, LNP-S, PF, 100 mcg/0.5mL dose or 50 mcg/0.25mL dose 2 completed Jannie Papantonatos [place] [facility] [employer] [facility] 03/07/2024 11:30:07 COVID-19, mRNA, LNP-S, PF, 100 mcg/0.5mL dose or 50 mcg/0.25mL dose 1 completed Jannie Papantonatos Palette [facility] [employer] [facility] 03/07/2024 11:30:07 COVID-19, mRNA, LNP-S, bivalent, PF, 50 mcg/0.5 mL or 25mcg/0.25 mL dose 2 completed Jannie Papantonatos null, [facility] 03/07/2024 11:30:07 COVID-19, mRNA, LNP-S, PF, anju-sucrose, 30 mcg/0.3 mL 3 completed [facility] 03/07/[facility]24 11:30:07 Influenza, high-dose, trivalent, PF 7 completed [facility] 03/07/2024 11:30:07 COVID-19, mRNA, LNP-S, PF, 50 mcg/0.5 mL dose 2 completed [facility] 03/07/2024 11:30:07 COVID-19, mRNA, LNP-S, PF, 30 mcg/0.3 mL dose 1 completed [facility] 03/07/2024 11:30:07 COVID-19, mRNA, LNP-S, PF, 100 mcg/0.5mL dose or 50 mcg/0.25mL dose 1 completed Jannie Papantonatos [facility] 03/07/2024 11:30:07 Pneumococcal conjugate PCV 13 6 completed Not Available [facility] 11/19/2022 05:00:44 Influenza, high-dose, trivalent, PF 6 completed [facility] 03/07/2024 11:30:07 zoster live 0 completed [facility] 03/07/2024 11:30:07 Influenza, high-dose, quadrivalent, PF 1 completed Not Available [facility] 11/19/2022 05:00:45 Influenza, high-dose, quadrivalent, PF 0 completed Not Available [facility] 11/19/2022 05:00:45 Influenza, high-dose, trivalent, PF 9 completed Jannie Alcala null, [place] [employer] 03/07/2024 11:30:07 Influenza, split virus, quadrivalent, PF 8 completed Not Available [facility] 11/19/2022 05:00:45 pneumococcal polysaccharide PPV23 6 completed Not Available [facility] 11/19/2022 05:00:46 Pneumococcal conjugate PCV 13 6 completed Not Available [facility] 11/19/2022 05:00:46 Influenza, split virus, quadrivalent, PF 5 completed Not Available [facility] 11/19/2022 05:00:46 Tdap 4 completed ALFONSO Velasquez, [employer] 03/07/2024 13:00:57 Past Encounters Encounter ID Performer Location Encounter Start Date Encounter Closed Date Diagnosis/Indication Diagnosis SNOMED-CT Code Diagnosis ICD10 Code Diagnosis Note [id number] [facility] [place] [address] [place] [address] 02/05/2021 00:00:00 02/14/2021 17:38:26 [id number] [facility] [place] [address] [place] [address] 07/04/2021 00:00:00 07/04/2021 17:58:56 [id number] [facility] [place] [address] [place] [address] 10/15/2021 00:00:00 10/21/2021 13:39:42 [id number] [facility] [place] [address] [place] [address] 12/03/2021 00:00:00 12/18/2021 09:33:43 [id number] [facility] [place] [address] [place] [address] 01/21/2022 00:00:00 01/21/2022 16:51:27 [id number] [facility] [place] [address] [place] [address] 09/04/2022 00:00:00 09/19/2022 09:46:19 [id number] Floresita Mathews MD [facility] Primary [facility] [address] [facility] [address] [place] [address] 09/07/2023 13:56:00 09/07/2023 14:49:20 Adult health examination 425439834 Z00.00 Z13.220 Z13.1 Has gotten flu vaccine and covid boosterrec ommend shingles vaccinePne umovax 23 donePrevna r 13 doneRecomm end RSV vaccineMam mogram order givenDEXA order givenColon oscopy 02/04/22 repeat 2026-may not need further due to age Screening mammography 24 214081 Z12.31 Postmenopausal state 764 06382 Z78.0 Chronic ki dney disease stage 3 576902128 N18.30 [facility] neph[facility] Cobalamin deficiency 190 991300 E53.8 stable Vitamin D deficiency 347 01657 E55.9 Prediabetes 836629852 R7 3.03 doing kbfiR7y done with Dr. Aguirre in March 2023 5.9Repeat done 06/11 was 5.1will check again with next labs in September [id number] AMADO Patterson [address] [address] 03/07/2024 11:15:37 03/07/2024 12:50:01 Chronic cough 16517474 R05.3 Primary insomnia 2782759 F51.01 Otitis externa 3779787 H 60.91 Administra tion of tetanus vaccine 985454070 Z23 [id number] AMADO Patterson [address] [address] 05/31/2024 10:48:51 05/31/2024 11:23:12 Chronic cough 41295350 R05.3 Chronic ki dney disease stage 3 108603203 N18.30 [id number] [place] [address] [address] 10/20/2024 14:15:08 10/20/2024 14:58:27 Degeneration of cervical intervertebral disc 39709481 M50.30 Has done XR and PT with no relief. She is taking baclofen at bedtime as needed Neuropathy 598465911 G62 .9 Believes she does not have [...] Hernandez Member ID Guarantor Name 09/07/2023 1 [facility] [employer] (MEDICARE REPLACEMENT HMO) [id number] Eleonora L Gandhi [id number] Eleonora L Gandhi 03/07/2024 1 [facility] [employer] (MEDICARE REPLACEMENT HMO) [id number] Eleonora L Gandhi [id number] Eleonora L Gandhi 05/31/2024 1 [facility] [employer] (MEDICARE REPLACEMENT HMO) [id number] Eleonora L Gandhi [id number] Eleonora L Gandhi 10/20/2024 1 [facility] [employer] (MEDICARE REPLACEMENT HMO) [id number] Eleonora L Gandhi [id number] Eleonora L Gandhi Notes Date Note Type Note Provider Name and Address Organization Details Recorded Time 09/07/2023 text/html Here for wellnes s examno chest pain or sob Floresita Mathews MD [address] [place] [address], [address], [place] [facility] [employer] 09/17/2023 17:59:35 03/07/2024 text/html Eleonora Gandhi is a 73 year old female patient here today to transition care. She was previously under the care of Dr. Mathews. She has a lingering cough that she had a few years ago and saw a puff iron operator. (Molly?). She was prescribed an albuterol inhaler [...] chest pain, fevers. She will see a puff iron operator on the . Does not take any medications at this time for CKD stage 3, follows with nephro. Has an appointment later this year and will discuss farxiga then. Has baclofen for sleep. She will try hydroxyzine in place of it. 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 She would like a urine for microalbumin today. AMADO Patterson [address], [place], [address], [employer] 05/31/2024 11:22:56 10/20/2024 text/html Eleonora Gandhi is [...] neurology to discuss this further [place], [employer] [address] [facility] [facility] [address], [place], [address], [facility] [employer] 10/20/2024 14:59:24 OBGyn Episode No OBEpisode recorded.
--- OUTSIDE RECORDS SUMMARY | 2025-01-05 14:15 | XMS_ITS ---
Author Organization [facility] Address [address] [place], [place] [address] Care Team Providers Care Medical Biller Coder Name Role Phone Yusra Mathews Unavailable Unavailable SILVIO RODRIGUEZ Unavailable [phone] REASON FOR VISIT Possible bunion Medications Medication SIG (Take, Route, Frequency, Duration) Notes Start Date End Date Status Medrol 4 MG as directed Orally 09/11/2023 Active Vital Signs Weight 160 lbs 09/11/2023 Weight-kg 72.57 kg 09/11/2023 Height 66 in 09/11/2023 Height-cm 167.64 cm 09/11/2023 BMI 25.82 kg/m2 09/11/2023 Encounters Encounter Location Date Provider Diagnosis [facility] [address] [place], [place] [id number] 09/11/2023 SILVIO RODRIGUEZ Osteophyte, right foot M25.774 [...] Notes * NORA BARTHDOB:1950 (74 yo F)Acc No.[id number]:09/11/2023 Progress Notes Patient: NORA CLAROS Provider: Favio Rodriguez DPM :1950 A ge:73 Y S ex:Female Date:09/11/2023 Address:[address] [place] [address] Subjective: * Chief Complaints: * P ossible [...] Codes: * Billing Information: * Visit Code: 64408 Office Visit, New Pt., Level 3. * Procedure Codes: * TING HELPER Sign off status: Completed true * Provider: Favio Rodriguez DPM Date: 11/12/2022 Generated for Vika macias/Gonzales/Gian on: 0 01/05/2025 02:15 PM CDT History and Physical Notes * HPI [...]
== END 2025-01-05 13:50 | disposition home or self-care (01) ==
DX: Z78.0 Asymptomatic menopausal state (principal)
CPT/HCPCS: 77080

== ENCOUNTER 2025-02-10 07:05 | Outpatient (CLI) | payer MEDICARE, SELFPAY ==
--- NOTE | ~2025-02-10 | MM_ITS ---
EXAMINATION: MM screening [facility] BI w brittany HISTORY: Screening TECHNIQUE: Craniocaudal and mediolateral oblique 3-D tomosynthesis images were obtained and synthetic 2-D images were generated. CAD analysis was submitted and interpreted. COMPARISON: Comparison to multiple prior studies sequentially, with oldest reviewed study dated 02/10. BREAST PARENCHYMAL COMPOSITION: Not dense: There are scattered areas of fibroglandular density. FINDINGS: There is no evidence of suspicious mass, calcification, or architectural distortion to sugg est malignancy in either breast. There has been no suspicious interval change. IMPRESSION: 1. No mammographic evidence of malignancy. 2. Recommend routine screening mammography in one year. BI-RADS Category 1: Negative Reviewed, dictated and finalized at location A.
--- OUTSIDE RECORDS SUMMARY | 2025-02-10 14:58 | XMS_ITS | Data Portability ---
Author Organization [place] 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 Plan of Treatment Reminders Order Date Submit Date Provider Last Modified By Organization Details Last Modified Time Details Appointments None recorded. Lab microalbum in, urine [address] [facility] ([facility]), [address] [place], [address], 4 23:00:01 CBC w/ auto diff 2022 024 ALEXANDER Not available 4 06:21:32 glycohemog lobin, total, blood 2022 024 [email or web address] Not available 4 09:12:12 BMP, serum or plasma 2022 024 ALEXANDER Not available 4 06:21:34 lipid panel, serum 2022 024 ALEXANDER Not available 4 06:21:35 vitamin D, 25-hydroxy , total, serum 2022 023 77 Not available 4 08:46:47 vitamin B12, serum 2022 024 ALEXANDER Not available 4 06:21:38 folate, serum 2022 024 ALEXANDER Not available 4 06:21:36 Referral rheumatolo gist referral - Please call patient to schedule an appointmen t. Thank you. 2024 025 CHERIE Prasad MD, [address], [address], [place], [address], 5 17:20:23 neurologis t referral - Please call patient to schedule an appointmen t. Thank you. 2024 025 [facility], [facility] [facility] , [address], [place], [address], 5 15:37:31 Procedures None recorded. Surgeries None recorded. Imaging CT, cervical spine, w/ contrast - Please call patient to schedule. [address], [address], [place], [address], 5 16:25:14 XR, chest, 2 view 2023 024 [facility], [address], [place], [address], 4 11:42:24 MAMMO, screening, digital, bilateral - *Please call pt to schedule* [address] [facility], [address], [address], [place], [address], 4 09:11:47 DEXA - *Please call pt to schedule* [address] (Imaging), [facility], [place], [address], 4 09:11:47 Medication Orders ofloxacin 0.3 % ear drops 2023 024 [facility][id number], [address] , [place], [place], [id number], 4 10:59:04 hydroxyzin e HCl 25 mg tablet 2023 024 [email or web address] [facility] #[id number], [address], [place], [place], [id number], 5 14:30:31 albuterol sulfate HFA 90 mcg/actuat ion aerosol inhaler 2023 024 [facility] #[id number], [address], [place], [place], [id number], 4 10:57:55 Patient TargetsNo targets recorded. Patient Instructions Encounter Date Encounter Id Patient Instructions Last Modified By Organization Details Last Modified Time 09/07/2023 [id number] multi-dimensiona l health assessment questionnaire* ALEXANDER Not [...] an appointment. Thank you. Referring Physician: La Dover [facility], Encounter Date: 10/20/2024 Injection Molder Referral for Anti-nuclear factor detected Please call patient to schedule an appointment. Thank you. Referring Physician: La Dover [facility], Encounter Date: 01/10/2025 Results Created Date Observation Date Name Description Value Unit Range Abnormal Flag Note LastModifiedBy Organization Detail LastModifiedTime 10/30/19 24 10/30/2023 CBC WITH DIFFE RENTI AL/PL ATELE T WBC 4.7 x10e3 /uL 3.4-10 .8 Not Available [facility] ([facility]) [address] [place], [address], 10/31/2023 06:21:32 10/30/19 24 10/30/2023 CBC WITH DIFFE RENTI AL/PL ATELE T RBC 4.36 x10e6 /uL 3.77-5 .28 Not Available [facility] ([facility]) [address] [place], [address], 10/31/2023 06:21:32 10/30/19 24 10/30/2023 CBC WITH DIFFE RENTI AL/PL ATELE T hemoglobin 12.9 g/dL 11.1-1 5.9 Not Available [facility] ([facility]) [address] [place], [address], 10/31/2023 06:21:32 10/30/19 24 10/30/2023 CBC WITH DIFFE RENTI AL/PL ATELE T hematocrit 39.1 % 34.0-4 6.6 Not Available [facility] ([facility]) [address] [place], [address], 10/31/2023 06:21:32 10/30/19 24 10/30/2023 CBC WITH DIFFE RENTI AL/PL ATELE T MCV 90 fL 79-97 Not Available [facility] ([facility]) [address] [facility], [place], [address], 10/31/2023 06:21:32 10/30/19 24 10/30/2023 CBC WITH DIFFE RENTI AL/PL ATELE T MCH 29.6 pg 26.6-3 3.0 Not Available [facility] ([facility]) [address] [facility], [place], [address], 10/31/2023 06:21:32 10/30/19 24 10/30/2023 CBC WITH DIFFE RENTI AL/PL ATELE T MCHC 33.0 g/dL 31.5-3 5.7 Not Available [facility] ([facility]) [address] [facility], [place], [address], 10/31/2023 06:21:32 10/30/19 24 10/30/2023 CBC WITH DIFFE RENTI AL/PL ATELE T RDW 13.1 % 11.7-1 5.4 Not Available [facility] ([facility]) [address] [facility], [place], [address], 10/31/2023 06:21:32 10/30/19 24 10/30/2023 CBC WITH DIFFE RENTI AL/PL ATELE T platelets 186 x10e3 /uL 150-45 0 Not Available [facility] ([facility]) [address] [facility], [place], [address], 10/31/2023 06:21:32 10/30/19 24 10/30/2023 CBC WITH DIFFE RENTI AL/PL ATELE T neutrophils 55 % not estab. Not Available [facility] ([facility]) [address] [facility], [place], [address], 10/31/2023 06:21:32 10/30/19 24 10/30/2023 CBC WITH DIFFE RENTI AL/PL ATELE T lymphs 32 % not estab. Not Available [facility] ([facility]) [address] [place], [address], 10/31/2023 06:21:32 10/30/19 24 10/30/2023 CBC WITH DIFFE RENTI AL/PL ATELE T monocytes 7 % not estab. Not Available [facility] ([facility]) [address] [facility], [place], [address], 10/31/2023 06:21:32 10/30/19 24 10/30/2023 CBC WITH DIFFE RENTI AL/PL ATELE T eos 5 % not estab. Not Available [facility] ([facility]) [address] [place], [address], 10/31/2023 06:21:32 10/30/19 24 10/30/2023 CBC WITH DIFFE RENTI AL/PL ATELE T basos 1 % not estab. Not Available [facility] ([facility]) [address] [place], [address], 10/31/2023 06:21:32 10/30/19 24 10/30/2023 CBC WITH DIFFE RENTI AL/PL ATELE T immature cells [employer]PA[employer] Not Available [facility] ([facility]) [address] [place], [address], 10/31/2023 06:21:32 10/30/19 24 10/30/2023 CBC WITH DIFFE RENTI AL/PL ATELE T neutrophils (absolute) 2.7 x10e3 /uL 1.4-7. 0 Not Available [facility] ([facility]) [address] [place], [address], 10/31/2023 06:21:32 10/30/19 24 10/30/2023 CBC WITH DIFFE RENTI AL/PL ATELE T lymphs (absolute) 1.5 x10e3 /uL 0.7-3. 1 Not Available [facility] ([facility]) [address] [place], [address], 10/31/2023 06:21:32 02/09/20 24 10/30/2023 CBC WITH DIFFE RENTI AL/PL ATELE T monocytes(ab solute) 0.3 x10e3 /uL 0.1-0. 9 Not Available [facility] ([facility]) [address] [facility], [place], [address], 10/31/2023 06:21:32 10/30/19 24 10/30/2023 CBC WITH DIFFE RENTI AL/PL ATELE T eos (absolute) 0.2 x10e3 /uL 0.0-0. 4 Not Available [facility] ([facility]) [address] [facility], [place], [address], 10/31/2023 06:21:32 10/30/19 24 10/30/2023 CBC WITH DIFFE RENTI AL/PL ATELE T baso (absolute) 0.0 x10e3 /uL 0.0-0. 2 Not Available [facility] ([facility]) [address] [facility], [place], [address], 10/31/2023 06:21:32 10/30/19 24 10/30/2023 CBC WITH DIFFE RENTI AL/PL ATELE T immature granulocytes 0 % not estab. Not Available [facility] ([facility]) [address] [facility], [place], [address], 10/31/2023 06:21:32 10/30/19 24 10/30/2023 CBC WITH DIFFE RENTI AL/PL ATELE T immature grans (abs) 0.0 x10e3 /uL 0.0-0. 1 Not Available [facility] ([facility]) [address] [place], [address], 10/31/2023 06:21:32 10/30/19 24 10/30/2023 CBC WITH DIFFE RENTI AL/PL ATELE T NRBC [employer] Not Available [facility] ([facility]) [address] [place], [address], 10/31/2023 06:21:32 10/30/19 24 10/30/2023 CBC WITH DIFFE BOBBI AL/PL LUDY [facility] hematology comments: [employer] Not Available [facility] ([facility]) [address] [facility], [place], [address], 10/31/2023 06:21:32 10/30/19 24 10/31/2023 BASIC METAB OLIC PANEL (8) glucose 86 mg/dL 70-99 Not Available [facility] ([facility]) [address] [place], [address], 10/31/2023 06:21:34 10/30/19 24 10/31/2023 BASIC METAB OLIC PANEL (8) BUN 17 mg/dL 8-27 Not Available [facility] ([facility]) [address] [place], [address], 10/31/2023 06:21:34 10/30/19 24 10/31/2023 BASIC METAB OLIC PANEL (8) creatinine 1.02 mg/dL 0.57-1 .00 above high normal Not Available [facility] ([facility]) [address] [place], [address], 10/31/2023 06:21:34 10/30/19 24 10/31/2023 BASIC METAB OLIC PANEL (8) eGFR 58 mL/mi n/1.7 3 >59 below low normal Not Available [facility] ([facility]) [address] [place], [address], 10/31/2023 06:21:34 10/30/19 24 10/31/2023 BASIC METAB OLIC PANEL (8) BUN/creatini ne ratio 17 12-28 Not Available [facility] ([facility]) [address] [place], [address], 10/31/2023 06:21:34 10/30/19 24 10/31/2023 BASIC METAB OLIC PANEL (8) sodium 144 mmol/ L 134-14 4 Not Available [facility] ([facility]) [address] [facility] [place], [address], 10/31/2023 06:21:34 10/30/19 24 10/31/2023 BASIC METAB OLIC PANEL (8) potassium 4.1 mmol/ L 3.5-5. 2 Not Available [facility] ([facility]) [address] [facility] [place], [address], 10/31/2023 06:21:34 10/30/19 24 10/31/2023 BASIC METAB OLIC PANEL (8) chloride 104 mmol/ L 96-106 Not Available [facility] ([facility]) [address] [facility] [place], [address], 10/31/2023 06:21:34 10/30/19 24 10/31/2023 BASIC METAB OLIC PANEL (8) carbon dioxide, total 25 mmol/ L 20-29 Not Available [facility] ([facility]) [address] [facility] [place], [address], 10/31/2023 06:21:34 10/30/19 24 10/31/2023 BASIC METAB OLIC PANEL (8) calcium 8.5 mg/dL 8.7-10 .3 below low normal Not Available [facility] ([facility]) [address] [facility] [place], [address], 10/31/2023 06:21:34 10/30/19 24 10/31/2023 LIPID PANEL cholesterol, total 194 mg/dL 100-19 9 Not Available [facility] ([facility]) [address] [facility] [place], [address], 10/31/2023 06:21:35 10/30/19 24 10/31/2023 LIPID PANEL triglyceride s 71 mg/dL 0-149 Not Available [facility] ([facility]) [address] [facility] [place], [address], 10/31/2023 06:21:35 10/30/19 24 10/31/2023 LIPID PANEL HDL cholesterol 66 mg/dL >39 Not Available [facility]) [address] [place], [address], 10/31/2023 06:21:35 10/30/19 24 10/31/2023 LIPID PANEL VLDL cholesterol dick 13 mg/dL 5-40 Not Available [facility] ([facility]) [address] [place], [address], 10/31/2023 06:21:35 10/30/19 24 10/31/2023 LIPID PANEL LDL chol calc ([facility]) 115 mg/dL 0-99 above high normal Not Available [facility] ([facility]) [address] [place], [address], 10/31/2023 06:21:35 10/30/19 24 10/31/2023 LIPID PANEL comment: [employer] Not Available [facility] ([facility]) [address] [place], [address], 10/31/2023 06:21:35 10/30/19 24 10/31/2023 HEMOG LOBIN A1C hemoglobin A1C 5.6 % 4.8-5. 6 Predi abete s: 5.7 - 6.4 Diabe rivka: >6.4 Glyce beni contr ol for adult s with diabe rivka: <7.0 Not Available [facility] ([facility]) [address] [place], [address], 10/31/2023 06:21:36 10/30/19 24 10/31/2023 FOLAT E (FOLI C ACID) , SERUM folate (folic acid), serum >20.0 NG/mL >3.0 A serum folat e jhonatan ntrat ion of less than 3.1 ng/mL is consi dered to repre sent clini dick defic iency . Not Available [facility] ([facility]) [address] [place], [address], 10/31/2023 06:21:36 10/30/19 24 10/31/2023 VITAM IN [...] Endoc rine Socie ty went on to formerly [facility] er defin e vitam in D insuf ficie ncy as a level betwe en 21 and 29 ng/mL (2). 1. IOM (Inst itute of Medic ine). 2009. Dieta ry refer ence intak es for calci um and D. Jordyn benitez [place]: The [facility] . 2. Parker villareal MF, Dillan philippe [place], Shanae off-F errar i BARKER, et al. Evalu ation , treat ment, and preve ntion of vitam in D defic iency : an Endoc rine Socie ty clini dick pract ice guide line. JCEM. 2010; 96(7) :1911 -30. Not Available [facility] ([facility]) [address] [facility], [place], [address], 10/31/2023 06:21:37 10/30/19 24 10/31/2023 VITAM IN B12 vitamin B12 541 pg/mL 232-12 45 Not Available [facility] ([facility]) [address] [facility], [place], [address], 10/31/2023 06:21:38 01/18/20 24 01/18/2024 MAMMO , scree kaia, digit al, bilat eral No observ ation record ed. [email or web address] [facility] [address], [place], [address], 02/06/2024 11:51:16 06/01/20 24 05/31/2024 XR, chest , 2 view No observ ation record ed. [address], [place], [address], 06/01/2024 12:10:27 06/23/20 24 06/23/2024 XR, cervi dick spine No observ ation record ed. [address], [place], [address], 06/24/2024 09:04:42 01/07/20 25 01/05/2025 DEXA No observ ation record ed. [address], [place], [address], 01/06/2025 17:11:33 01/13/20 25 12/12/2024 CT, cervi dick spine , w/ contr ast No observ ation record ed. [address], [place], [address], 01/12/2025 14:07:41 Result Notes None recorded. Problems Name Problem SNOMED Code Status Onset Date Resolution Date Notes Provider Name and Address Organization Details Recorded Time Chronic kidney disease stage 3 106432139 Active 2022 Floresita Mathews MD [address], [address], [place], [address] , [employer] 3 13:45:21 Cobalamin deficiency 756786775 Active 2022 Floresita Mathews MD [address], [place], [address] , [employer] 3 14:27:24 Vitamin D deficiency 18171149 Active 2022 Floresita Mathews MD [address], [place], [address] , [employer] 3 14:29:06 Prediabetes 597821350 Active 2022 Floresita Mathews MD [address], [place], [address] , [facility] 3 14:31:29 Primary insomnia 9482851 Active 2023 AMADO Patterson [address], [address], [place], [address] , [facility] 4 12:00:50 Otitis externa 9014818 Active 2023 AMADO Patterson [address], [address], [place], [address] , [facility] 4 12:06:53 Neck pain 21937870 Active [address], [place], [address] , [facility] 4 12:08:43 Thoracic back pain 677274134 Active [address], [place], [address] , [facility] 4 12:08:51 Low back pain 218909734 Active [address], [place], [address] , [facility] 4 12:09:31 Degeneration of cervical intervertebra l disc 54432985 Active [address], [place], [address] , [facility] 4 10:19:02 Neuropathy 714221799 Active [address], [place], [address] , [facility] 5 14:52:46 Anti-nuclear factor detected 826354780 Active [address], [place], [address] , [facility] 5 14:44:36 Cervical spondylosis 055405285 Active 2024 [place], AMADO [address] [facility], [facility] [address], [place], [address] , [facility] 5 14:08:36 Disorder of thyroid gland 90019447 Active Not Available [facility] 3 04:49:00 Cataract 901786892 Active Not Available [facility] 3 04:49:00 Dyspnea 629751678 Active 2021 Not Available [facility] 3 04:49:00 Edema 416917899 Active Not Available [facility] 3 04:49:00 Eruption 374130070 Active Not Available [facility] 3 04:49:00 Genital herpes simplex 75930127 Active Not Available [facility] 3 04:49:00 Hypoparathyro idism 05119672 Active Not Available [facility] 3 04:49:00 Hypertensive disorder 00086552 Active Not Available [facility] 3 04:49:00 Osteoarthriti s 126786307 Active knee Not Available [facility] 3 04:49:00 Clinical finding Active Not Available [facility] 3 04:49:00 Obesity 363562751 Active Not Available [facility] 3 04:49:00 Verruca plantaris 69029312 Active Not Available [facility] 3 04:49:00 Chronic cough 76574264 Active 2021 Not Available [facility] 3 04:49:01 Marijuana user 941731734 Active 2021 Not Available [facility] 3 04:49:01 Posterior rhinorrhea 66977596 Active 2021 Not Available [facility] 3 04:49:01 Obstructive sleep apnea syndrome 46436998 Active 2018 Not Available [facility] 3 04:49:01 Pain in limb 07187544 Active Not Available [facility] 3 04:49:01 Notes:Some problems listed i n Document: #[id number] could not be added to this patient's chart. Please review this document and add these problems to the patient's chart manually as needed. Problem Notes None recorded. Procedures Surgical History Date Name Laterality Status Provider Name and Address Organization Details Recorded Time 01/20/20 24 Most Recent Mammogram completed Lisseth Chen RN [facility] 03/07/2024 11:33:45 09/07/20 23 Medicare Wellness CPT Code, subsequent completed Ramez Chandler RN [facility] 09/07/2023 13:58:23 09/21/19 05 shoulder manipulation completed Lisseth Chen RN [facility] 03/07/2024 11:25:57 09/21/18 98 Hysterectomy completed Lisseth Chen RN [facility] 03/07/2024 11:25:28 01/19/19 90 delivery completed Lisseth Chen RN [facility] 03/07/2024 11:25:16 Imaging Results Imaging Date Name Status LastModified by Organiz ation Details LastModified Time 01/18/2024 MAMMO, screening, digital, bilateral completed [address], [address], 02/06/2024 11:51:16 05/31/2024 XR, chest, 2 view completed [address] [facility] [address], [place], [address], 06/01/2024 12:10:27 06/23/2024 XR, cervical spine completed [address], [address], 06/24/2024 09:04:42 01/05/2025 DEXA completed [address], [address], 01/06/2025 17:11:33 12/12/2024 CT, cervical spine, w/ contrast completed [address], [place], [address], 01/12/2025 14:07:41 Procedure Notes None recorded. Medical Equipment None Reported. Allergies Allergen ID Allergen Name Allergen Category Reaction Reaction Severity Criticality Documentation Date Start Date Code Code System Note Provider Name and Address Organization Details Recorded Time 94590 lactose food,medi cation Not available Not available Not available 05/31/2024 6211 RxNorm Lisseth Chen RN null, [place] [facility] [place] [employer] 4 10:57:44 7508 lactase medicatio n Not available Not available Not available 11/19/2022 58775 RxNorm Not Available [facility] 3 05:01:16 Medications Name Sig Start Date [...] t Available valacyclov ir 500 mg tablet TAKE 1 TABLET BY MOUTH DAILY 2024 active Not Available Not Available Not [...] 1 TABLET BY MOUTH DAILY 03/07 completed 1/2 tab daily MK 2 Not Available Not [...] Available hydroxyzin e HCl 25 mg tablet Take 1 tablet 3 times a day by oral route as needed for 30 days. active Not Available Not Available No t Available hydrochlor othiazide 25 mg tablet active [...] bromide 42 mcg (0.06 %) nasal spray [place] 2 sprays 3 times a day by [...] Not Available No t Available Fluzone High-Dose 7670-7715 (PF) 180 mcg/0.5 mL intramuscu lar syringe ADM 0.5ML IM UTD active Not Available Not Available No t Available Durolane 60 mg/3 mL intra-rickie cular syringe 10/20 completed Not Available Not Available Not Available Neuriva Plus Brain Performanc e 1 gummy daily active Not Available Not Available No t Available Vitals Date Recorded Body weight Body temperature Heart rate Oxygen saturation Oxygen saturation in Arterial blood by Pulse oximetry Systolic blood pressure Diastolic blood pressure Provider Name and Address Organization Details Last Updated DateTime 3 34577.9 6 g 97.3 [degF] 75 /min 98 % 98 % 166 mm[Hg] 80 mm[Hg] Ramez Chandler RN [place] [facility] [place] [facility] 3 14:01:20 Date Recorded Body weight Body mass index (BMI) Body height Body temperature Heart rate Respiratory rate Oxygen saturation Oxygen saturation in Arterial blood by Pulse oximetry Systolic blood pressure Diastolic blood pressure Provider Name and Address Organization Details Last Updated DateTime 4 98493.2 9 g 27.1 kg/m2 162.56 cm 97.2 [degF] 75 /min 20 /min 0 % 0 % 136 mm[Hg] 70 mm[Hg] ALFONSO Velasquez [facility] [employer] [facility] 4 11:29:33 Date Recorded Body height Body mass index (BMI) Body weight Body temperature Heart rate Respiratory rate Oxygen saturation Oxygen saturation in Arterial blood by Pulse oximetry Systolic blood pressure Diastolic blood pressure Provider Name and Address Organization Details Last Updated DateTime 4 162.56 cm 27.4 kg/m2 77091.6 4 g 97.1 [degF] 71 /min 20 /min 98 % 98 % 142 mm[Hg] 88 mm[Hg] ALFONSO Velasuqez [facility] [employer] [facility] 4 11:03:42 Date Recorded Body height Body mass index (BMI) Body weight Oxygen saturation Oxygen saturation in Arterial blood by Pulse oximetry Body temperature Respiratory rate Heart rate Systolic blood pressure Diastolic blood pressure Provider Name and Address Organization Details Last Updated DateTime 5 162.56 cm 28 kg/m2 05078.6 1 g 99 % 99 % 97.7 [degF] 20 /min 68 /min 120 mm[Hg] 72 mm[Hg] ALFONSO Velasquez [facility] [employer] [facility] 5 14:35:17 Date Recorded Body height Body mass index (BMI) Body weight Body temperature Heart rate Respiratory rate Oxygen saturation Oxygen saturation in Arterial blood by Pulse oximetry Systolic blood pressure Diastolic blood pressure Provider Name and Address Organization Details Last Updated DateTime 5 162.56 cm 28.1 kg/m2 13942.0 1 g 97.2 [degF] 71 /min 20 /min 99 % 99 % 130 mm[Hg] 62 mm[Hg] [facility] [place] [employer] [facility] 5 14:35:01 Social History Question Answer Notes LastModified by Organizat ion Details LastModified Time Tobacco Smoking Status Never Smoker Not Available [facility] 11/19/2022 04:11:01 Do You Have An Advance Directive? Yes [id number] Information not available 11/19/2022 Are You Blind Or Do You Have Difficulty Seeing? No [id number] Information not available 11/19/2022 Is Blood Transfusion Acceptable In An Emergency? Yes Information not available 03/07/2024 What Is Your Level Of Caffeine Consumption? Moderate [id number] Information not available 11/19/2022 How Much Tobacco Do You Chew? None [id number] Information not available 11/19/2022 What Is Your Code Status? Full Code Information not available 03/07/2024 In The 14 Days Before Symptom Onset, Have You Had Close Contact With A Laboratory-confir med COVID-19 While That Case Was Ill? No Information not available 03/07/2024 In The 14 Days Before Symptom Onset, Have You Had Close Contact With A Person Who Is Under Investigation For COVID-19 While That Person Was Ill? No Information not available 03/07/2024 Are You Deaf Or Do You Have Serious Difficulty Hearing? No [id number] Information not available 11/19/2022 What Type Of Diet Are You Following? REGULAR [id number] Information not available 11/19/2022 Which Illicit Or Recreational Drugs Have You Used? No [id number] Information not available 11/19/2022 How Many Days [...] Your Family Or Social Situation? No Information no t available 03/07/2024 Are There Any Guns Present In Your Home? Yes Information not available 03/07/2024 Do You Use Insect Repellent Routinely? Yes Information not available 03/07/2024 Where Do You Live? [facility] Information not available 03/07/2024 Advance Directive- Providers Has Reviewed Directive And Consents To Follow Them (insert Provider Name With Any Objectives In Notes Field) Yes Information not available 03/07/2024 Presence Of Domestic Violence No Information no t available 03/07/2024 Guns Present In The Home? [...] Do You Have A Medical Power Of Tonal Regulator? Yes Information not available 03/07/2024 What Was The Date Of Your Most Recent Tobacco Screening? 01/21/2022 [id number] Information not available 11/19/2022 How Many Children [...] You Passively Exposed To Smoke? Yes Information no t available 03/07/2024 Are There Any Smokers In Your House? Yes Information not available 03/07/2024 Do You Participate In Social Media? Yes Information not available 03/07/2024 What Types Of Sporting Activities Do You Participate In? Stretching Information not available 03/07/2024 Do You Use Sunscreen Routinely? Yes [id number] Information not available 11/19/2022 Have You Recently Traveled Abroad? No Information not available 03/07/2024 Do You Have Difficulty Walking Or Climbing Stairs? No [id number] Information not available 11/19/2022 Sex: Unknown Functional Status Question Answer Note LastModified by Organizat ion Details LastModified Time What is your level of alcohol consumption? None Information not available 01/10/2025 Do you or have you ever used smokeless tobacco? Never used smokeless tobacco MIGRATION.[id number] Information not available 11/19/2022 Are you currently employed? No Information not available 05/31/2024 Do you have transportation difficulties? No Information not available 03/07/2024 Are you able to walk? YESWOREST Information not available 03/07/2024 Do you have difficulty doing errands alone? No MIGRATION.[id number] Information not available 11/19/2022 Are you able to care for yourself? Yes Information n ot available 03/07/2024 What is your occupation? retired [id number].[id number] Information not available 11/19/2022 Do you have difficulty dressing or bathing? No MIGRATION.[id number] 2520 Information not available 11/19/2022 Do you or have you ever used e-cigarettes or vape? Never used electronic cigarettes MIGRATION.[id number] 8688 Information not available 11/19/2022 What is your exercise level? Moderate [id number].[id number] Information not available 11/19/2022 Mental Status Question Answer Note LastModified by Organizat ion Details LastModified Time Do you feel stressed (tense, restless, nervous, or anxious, or unable to sleep at night)? [id number] Information not available 03/07/2024 Do you have difficulty concentrating, remembering or making decisions? No [id number].[id number] 26 Information not available 11/19/2022 Family History Nothing Reported. Medical History Condition Response OTHER # 1 Y Other # 2 ARTHRITIS Y NEUROPATHY Y KIDNEY DISEASE Y Gynecological History Statement/Question Response If Post [...] high-dose, quadrivalent, PF 3 completed [facility]07[facility] 11:30:07 Influenza, high-dose, quadrivalent, PF 2 completed [facility] 03/07/2024 11:30:07 COVID-19, mRNA, LNP-S, PF, 100 mcg/0.5mL dose or 50 mcg/0.25mL dose 1 completed J[facility]atos [facility] 03/07/2024 11:30:07 COVID-19, mRNA, LNP-S, PF, 100 mcg/0.5mL dose or 50 mcg/0.25mL dose 2 completed Jannie Papantonatos [facility] 03/07/2024 11:30:07 COVID-19, mRNA, LNP-S, PF, 100 mcg/0.5mL dose or 50 mcg/0.25mL dose 1 completed Jannie Papantonatos [facility] 03/07/2024 11:30:07 COVID-19, mRNA, LNP-S, bivalent, PF, 50 mcg/0.5 mL or 25mcg/0.25 mL dose 2 completed Jannie Papantonatos [facility] 03/07/2024 11:30:07 COVID-19, mRNA, LNP-S, PF, anju-sucrose, 30 mcg/0.3 mL 3 completed Jannie Papantonatos [facility] 03/07/2024 11:30:07 Influenza, high-dose, trivalent, PF 7 completed Jannie Papantonatos [facility] 03/07/2024 11:30:07 COVID-19, mRNA, LNP-S, PF, 50 mcg/0.5 mL dose 2 completed Jannie Papantonatos [facility] 03/07/2024 11:30:07 COVID-19, mRNA, LNP-S, PF, 30 mcg/0.3 mL dose 1 completed Jannie Papantonatos [facility] 03/07/2024 11:30:07 COVID-19, mRNA, LNP-S, PF, 100 mcg/0.5mL dose or 50 mcg/0.25mL dose 1 completed Jannie Papantonatos [facility] 03/07/2024 11:30:07 Pneumococcal conjugate PCV 13 6 completed Not Available [facility] 11/19/2022 05:00:44 Influenza, high-dose, trivalent, PF 6 completed Jannie Papantonatos null, [facility] 03/07/2024 11:30:07 zoster live 0 completed Jannie [facility]atos [facility] 03/07/2024 11:30:07 Influenza, high-dose, quadrivalent, PF 1 completed Not Available [facility] 11/19/2022 05:00:45 Influenza, high-dose, quadrivalent, PF 0 completed Not Available [facility] 11/19/2022 05:00:45 Influenza, high-dose, trivalent, PF 9 completed Jannie Papantonatos [facility] 03/07/2024 11:30:07 Influenza, split virus, quadrivalent, PF 8 completed Not Available [facility] 11/19/2022 05:00:45 pneumococcal polysaccharide PPV23 6 completed Not Available [facility] 11/19/2022 05:00:46 Pneumococcal conjugate PCV 13 6 completed Not Available [facility] 11/19/2022 05:00:46 Influenza, split virus, quadrivalent, PF 5 completed Not Available [facility] 11/19/2022 05:00:46 Tdap 4 completed Lisseth Chen RN null, [facility] 03/07/2024 13:00:57 Past Encounters Encounter ID Performer Location Encounter Start Date Encounter Closed Date Diagnosis/Indication Diagnosis SNOMED-CT Code Diagnosis ICD10 Code Diagnosis Note [id number] Floresita Mathews MD [facility] Primary Care [place] [address] [address] [facility] [address] [place] [address] 02/05/2021 00:00:00 02/14/2021 17:38:26 [id number] Floresita Mathews MD [facility] Primary Care [place] [address] [place] [address] [address] [place] [address] 07/04/2021 00:00:00 07/04/2021 17:58:56 [id number] Floresita Mathews MD [facility] Primary Care [place] [address] [place] [address] [address] [place] [address] 10/15/2021 00:00:00 10/21/2021 13:39:42 [id number] Floresita Mathews MD [facility] Primary Care [place] [address] [place] [address] [address] [place] [address] 12/03/2021 00:00:00 12/18/2021 09:33:43 [id number] Molly [facility] Pulmonolo gy [place] [address] [place] [address] 01/21/2022 00:00:00 01/21/2022 16:51:27 [id number] Floresita Mathews MD [facility] Primary Care [place] [address] [place] [address] [address] [place] [address] 09/04/2022 00:00:00 09/19/2022 09:46:19 [id number] Floresita Mathews MD [facility] Primary Care [place] [address] [place] [address] [address] [place] [address] 09/07/2023 13:56:00 09/07/2023 14:49:20 Adult health examination 779554152 Z00.00 Z13.220 Z13.1 Has gotten flu vaccine and covid boosterrec ommend shingles vaccinePne umovax 23 donePrevna r 13 doneRecomm end RSV vaccineMam mogram order givenDEXA order givenColon oscopy 02/04/22 repeat 2026-may not need further due to age Screening mammography 24 153051 Z12.31 Postmenopausal state 764 62989 Z78.0 Chronic ki dney disease stage 3 353285224 N18.30 stablesees nephrology Cobalamin deficiency 190 832153 E53.8 stable Vitamin D deficiency 347 44473 E55.9 Prediabetes 031750771 R7 3.03 doing ntooU8b done with Dr. Aguirre in March 2023 5.9Repeat done 06/11 was 5.1will check again with next labs in September [id number] Roberto Mendoza MD [address] [address] 03/07/2024 11:15:37 03/07/2024 12:50:01 Chronic cough 26632917 R05.3 Primary insomnia 7320920 F51.01 Otitis externa 6917712 H 60.91 Administra tion of tetanus vaccine 396691517 Z23 [id number] Roberto Mendoza MD [place] [address] 05/31/2024 10:48:51 05/31/2024 11:23:12 Chronic cough 80429444 R05.3 Chronic ki dney disease stage 3 407519409 N18.30 [id number] Roberto Mendoza MD [address] [address] 10/20/2024 14:15:08 10/20/2024 14:58:27 Degeneration of cervical intervertebral disc 38013224 M50.30 Has done XR and PT with no relief. She is taking baclofen at bedtime as needed Neuropathy 873852590 G62 .9 Believes she does not have neuropathy , has been taking gabapentin and wants to stop.Discu ssed EMG and trialling off of gabapentin . She is requesting neuro referral at this time. 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 Anti-DNA DS also positiveHx of hypothyroi dismMother has lupus Health Concerns Section Related Observation LastModified by Organization Detai ls LastModified Time None Recorded Concern Status LastModified by Organization Details LastModified Time None Recorded Advance Directives Directive Y: Payers Encounter Date Sequence Insurance Name Policy Number Policy Hernandez Covered Member ID Hernandez Member ID Guarantor Name 09/07/2023 1 [facility] (MEDICARE REPLACEMENT HMO) [id number] Eleonora L Gandhi [id number] Eleonora L Gandhi 03/07/2024 1 [facility] (MEDICARE REPLACEMENT HMO) [id number] Eleonora L Gandhi [id number] Eleonora L Gandhi 05/31/2024 1 [facility] (MEDICARE REPLACEMENT HMO) [id number] Eleonora L Gandhi [id number] Eleonora L Gandhi 10/20/2024 1 [facility] (MEDICARE REPLACEMENT HMO) [id number] Eleonora L Gandhi [id number] Eleonora L Gandhi 01/10/2025 1 [facility] [employer] (MEDICARE REPLACEMENT HMO) [id number] Eleonora L Gandhi [id number] Eleonora L Gandhi Notes Date Note Type Note Provider Name and Address Organization Details Recorded Time 09/07/2023 text/html Here for julio cesarnes s examno chest pain or sob Floresita Mathews MD [address] [place] [address], [id number], [facility] [employer] 09/17/2023 17:59:35 03/07/2024 text/html Eleonora Gandhi is a 73 year old female patient here today to transition care. She was previously under the care of Dr. Mathews. She has a lingering cough that she had a few years ago and saw a automation controls specialist. (Molly?). She was prescribed an albuterol inhaler [...] chest pain, fevers. She will see a automation controls specialist on the . Does not take any medications at this time for CKD stage 3, follows with nephro. Has an appointment later this year and will discuss farxiga then. Has baclofen for sleep. She will try hydroxyzine in place of it. 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 She has CKD 3 and her car salesman told has a cyst on her kidney. She would like a urine for microalbumin today. AMADO Patterson [address], [place], [address], [employer] 05/31/2024 11:22:56 10/20/2024 text/html Eleonora Gandhi is [...] to see neurology to discuss this further AMADO Patterson [address] [facility] [facility] [address], [place], [address], [employer] 10/20/2024 14:59:24 01/10/2025 text/html Eleonora Gandhi is a 74 year old female patient here today to FU on labs She recently had blood work with her neurologist who found a positive IRENE and Anti-DNAHer Mother did have lupus She does have hypothyroidism, unsure is she has gibson's AMADO Patterson [address], [place], [address], [employer] 01/10/2025 14:53:55 OBGyn Episode No OBEpisode recorded.
--- OUTSIDE RECORDS SUMMARY | 2025-02-10 14:58 | XMS_ITS | CONTINUITY OF CARE DOCUMENT ---
Author Name emperatriz awan Address Unknown Organization [facility] Address [address] [place] [address] Phone [phone] Care Team Providers Care Avionics Systems Repairer Name Role Phone Marciano Perry MD Unavailable [phone] FLORESITA COHEN MD Unavailable FLORESITA COHEN MD [...] In-person encounter Office Visit Marciano Perry MD [facility] - In-person encounter Office Visit Marciano Perry MD [facility] Family History of Hypertension:Sleep apnea, mild on home sleep 10/09 - In-person encounter Office Visit Marciano Perry MD [facility] Family History of Hypertension:Varico se veinsSleep [...] blood pressure, diastolic 70 mm[Hg] Jay melisaty Somers blood pressure, systolic 126 mm[Hg] Scott urbina pulse rate 76 /min Lynette oxygen saturation, oximetry 97 % Lynette blood pressure, resting No Ayden ty respiratory rate E&M 17 /min Lynette height E&M 64 [in_i] Lynette weight E&M 174 [lb_av] Lynette Somers ALLERGIES No Known Drug Allergies HISTORY OF [...] Payer name Policy type / Coverage type [place] red republican ID AARP MEDICARE ADVANTAGE ([facility] COMPLETE PPO) Other [id number] ADVANCE DIRECTIVES Name Date DISCUSSED - NO [...]
--- OUTSIDE RECORDS SUMMARY | 2025-02-10 14:59 | XMS_ITS ---
Author Organization [facility] Address [address] [place], [place] [address] Care Team Providers Care Weaving Loom Operator Name Role Phone SantiagomaryMenaYusra Unavailable Unavailable SILVIO RODRIGUEZ Unavailable [phone] REASON FOR VISIT bunion pain follow up Encounters Encounter Location Date Provider Diagnosis [facility] [place] [address] [place], [place] [id number] 10/02/2023 SILVIO RODRIGUEZ Plan Of Treatment No Information Progress Notes * MENA BARTHSREEKANTHDOB:1950 (74 yo F)Acc No.[id number]:10/02/2023 Patient: NORA CLAROS Provider: Favio Rodriguez DPM :1950 A ge:73 Y S ex:Female Date:10/02/2023 Address:[address] [place] [address] Subjective: * Chief Complaints: * 1 . Bunion pain follow up. * Medical History: Objective: * Vitals: Assessment: Plan: * Treatment: * Billing Information: * Visit Code: * Procedure Codes: * Electronic signature of SILVIO RODRIGUEZ DPM on 02/10/2025 at 12:49 PM CDT Sign off status: Pending * Provider: Favio Rodriguez DPM Date: 10/02/2023 Generated for Vika ng/Fanapoleon/eTransmitting on: 0 02/10/2025 12:49 PM CDT
--- OUTSIDE RECORDS SUMMARY | 2025-02-10 14:59 | XMS_ITS | Continuity of Care Document ---
Author Organization [facility] Address [address] [facility] [place] [address] Phone Care Team Providers Care Trust Officer Name Role Phone Aman Huang MD Unavailable [...] Copied on Encounter OFFICE/OUTPA TIENT VISIT, EST [facility], [address] [place], [place] [address] [place], [address], [place] tel:[phone] [facility] cataract (chief complaint) Cataract [address]. [address] [facility] [place], [address] , [place]. tel:[phone] Referring Provider: Anton [address], [place], [place], [address]. tel:[phone] OFFICE/OUTPA TIENT VISIT, [facility], [address], [place], [place], [address], [place] tel:[phone] [facility] HTN (chief complaint)colon osocpy (chief complaint)foot itching (chief complaint)scar tissue (chief complaint) Dietary surveillance and counselingColo n polypPruritic conditionHemor rhoidBlood pressure elevated [address]. [address], [place], [place], [address] , [place]. tel:[phone] Referring Provider: Aman Huang, [address], [place], [place], [address]. tel:[phone] [facility], [address], [place], [place], [address], [place] tel:[phone] [facility] No Information [address], [place], [place], [address] , [place]. tel:[phone] OFFICE/OUTPA TIENT VISIT, [facility], [address], [place], [place], [address], [place] tel:[phone] [facility] hypoparathyroid ism (chief complaint)HTN (chief complaint)renal function (chief complaint) Dietary surveillance and counselingHype rtension, UnspecifiedHyp oparathyroidis mRenal Insufficiency, Acute 5 [address]. [address], [place], [place], [address] , [place]. tel:[phone] Referring Provider: Anton Temple [address], [place], [place], [address]. tel:[phone] OFFICE/OUTPA TIENT VISIT, [facility], [address], [place], [place], [address], [place] tel:[phone] [facility] renal function (chief complaint)HLP (chief complaint)parat hyroid (chief complaint)HTN (chief complaint) Dietary surveillance and counselingHype rtension, UnspecifiedHyp oparathyroidis mOsteoarthriti s, GeneralizedOth er and unspecified hyperlipidemia [address], [address], [place], [place], [address] , [place]. [phone] Referring Provider: Aman Huang, [address], [place], [place], [address]. tel:[phone] PREV VISIT, NEW, AGE 40-64 [facility], [address], [place], [place], [address], [place] tel:[phone] [facility] Physical (chief complaint) Dietary surveillance and counselingRout ine Medical ExamHypertensi on, UnspecifiedOst eoarthritis, GeneralizedOth er genital herpesRoutine Medical Exam [address], [place], [place], [address] , [place]. tel:[phone] Family History Family Member Type Diagnosis Age [...] visual field when she sees the light HTN Pt has HTN. Pt d enies any chest pain or headache. Her BP is stable colonosocpy Pt had ? colonos ocpy 2008. Pt was told the report ok except for polyp. Pt denies any rectal bleeding. Pt denies any weight loss foot itching Pt c/o itchy sanjuanita ntar surface both feet for a while. Pt denies any skin peel. scar tissue Pt states that s he has a skin tag hanging anus area for years. Pt was offererd to get it removed but she did not do it in the past. Pt denies any bleeding or pain Instructions Date Instruction Additional Infor mation Prescribed activity/ exercise education Related to Dietary surveillance and counseling Special diet education Related t o Dietary surveillance and counseling Decrease caloric intake Related to Dietary surveillance counseling Physical activity counseling Rel ated to Dietary surveillance counseling Decrease caloric intake Related to Dietary surveillance counseling Dietary counseling Related to Di etary surveillance counseling Decrease caloric intake Related to Dietary surveillance counseling Dietary counseling Related to Di etary surveillance counseling Assessments Type Assessment Date assessment Cataract Mental Status Date Cognitive Assessment Orientation - [place] ed to time, place, person, situation.
--- OUTSIDE RECORDS SUMMARY | 2025-02-10 14:59 | XMS_ITS | Patient Health Record ---
Author Organization [facility] Address [address] [place], [place] [address] Care Team Providers Care Technical Analyst Name Role Phone Santiagomary Yusra Unavailable [...] Insured Coverage Start Date Coverage End Date [facility] [address] [address] [place] [id number] NORA BARTH Self - patient is the insured Medical (General) History Medical History History ICD Code neuropathy Arthritis thyroid cancer
== END 2025-02-10 14:56 ==
LOC: ANHIMG 03-20 07:05
DX: Z12.31 Encounter for screening mammogram for malignant neoplasm of breast (principal)
CPT/HCPCS: 77063; 77067